=== PATIENT | female | born 1985 | race Caucasian/White ===

== ENCOUNTER 2018-12-18 12:13 | Emergency (ER) | payer OTHER, SELFPAY ==
[2018-12-18 12:15] VITALS: BP 143/90; PULSE 94; RESP 18; TEMP 36.8; O2SAT 100
--- NOTE | 2018-12-18 12:24 | ED.ABDPAIN ---
HPI - Abdominal Pain <Janel Kirkland PA-C - Last Filed: 12/18/18 20:32> General Chief Complaint: Chest Pain Stated Complaint: feels like someone sitting on R chest and arm Time Seen by Provider: 12/18/18 12:23 Source: patient Mode of arrival: ambulatory Limitations: no limitations History of Present Illness HPI narrative: This 33-year-old female comes to ED secondary to 1 week history of pressure and tingling sensation across her upper abdomen along her lower ribs. She noticed some broken capillaries in that area. She states that she had vomiting for 1 day and assume this was due to ?stomach flu? as her son had this also. She has not had any recurrent vomiting. She states that she always has nausea and this is at baseline. She states that for the last 3 days she has also had pain in her right posterior shoulder area which she describes as a pressure sensation. She states this is worse when supine. She denies any dyspnea or shortness of breath but states that it is harder to take a deep breath due to the discomfort when she is lying down. She denies any pain elsewhere in the abdomen, chest, or extremities. No new swelling. She denies any neck pain. She denies any recent upper respiratory symptoms or cough. She denies any urinary symptoms or bowel habit changes. She denies any possibility of ( has had vasectomy). She states that she has a long history of abdominal symptoms and was admitted to the hospital at one point for these, no source determined. She states this pain is different, more like nerve pain that she had in her left elbow (she had a surgery to ?separate the nerves?, still has same type of tingling on the left side). Pain is worse with putting her right arm in certain positions or with lying supine, better up and about. She denies any other exacerbating or alleviating features. She has been eating and drinking normally. Related Data Home Medications Medication Instructions Recorded Confirmed albuterol sulfate 1 puff INHALATION PRN PRN 12/18/18 12/18/18 ipratropium-albuterol 1 neb INHALATION PRN PRN 12/18/18 12/18/18 Previous Rx's Medication Instructions Recorded lidocaine [Lidoderm] 2 patch TOP DAILY #30 each 12/18/18 meloxicam [Mobic] 15 mg PO DAILY #14 tab 12/18/18 ondansetron 4 mg PO Q6-8H PRN #10 tab 12/18/18 Allergies Allergy/AdvReac Type Severity Reaction Status Date / Time bee venom protein (honey bee) Allergy Verified 12/18/18 12:24 latex Allergy Verified 12/18/18 12:24 Review of Systems <Janel Kirkland PA-C - Last Filed: 12/18/18 20:32> Review of Systems ROS Unobtainable: All systems reviewed & are unremarkable except as noted in HPI and below PFSH <Janel Kirkland PA-C - Last Filed: 12/18/18 20:32> Medical History (Updated 12/18/18 @ 14:50 by aJnel Kirkland PA-C) Asthma with allergic rhinitis (Chronic) Surgical History (Updated 12/18/18 @ 13:14 by Janel Kirkland PA-C) History of elbow surgery (Resolved) S/P T&A (status post tonsillectomy and adenoidectomy) (Resolved) Social History Smoking Status: Never smoker Social History Smoking Status: Never smoker Exam <Janel Kirkland PA-C - Last Filed: 12/18/18 20:32> Narrative Exam Narrative: GENERAL APPEARANCE: Patient sitting comfortably, in no distress. HEENT: PERRL, EOMI, no scleral icterus, conjunctivae pink, normal oropharynx NECK: Supple LUNGS: Clear to auscultation bilaterally. HEART: Rate and rhythm regular, normal S1 and S2, no S3 or S4. ABDOMEN: Soft, nontender, nondistended, bowel sounds present x 4 quadrants, no masses palpable, no hepatosplenomegaly, no CVAT. Able to reproduce some discomfort with trunk and upper extremity position change EXTREMITIES: No edema, no calf tenderness DERMATOLOGIC: No jaundice or exanthem NEUROLOGIC: Alert and oriented with normal speech and coordination Initial Vital Signs Initial Vital Signs: Vital Signs Temperature 98.2 F 12/18/18 12:15 Pulse Rate 94 H 12/18/18 12:15 Respiratory Rate 18 12/18/18 12:15 Blood Pressure 143/90 H 12/18/18 12:15 Pulse Oximetry 100 12/18/18 12:15 <Allison English DO - Last Filed: 12/19/18 08:11> Initial Vital Signs Initial Vital Signs: Vital Signs Temperature 98.2 F 12/18/18 12:15 Pulse Rate 94 H 12/18/18 12:15 Respiratory Rate 18 12/18/18 12:15 Blood Pressure 143/90 H 12/18/18 12:15 Pulse Oximetry 100 12/18/18 12:15 Course <Janel Kirkland PA-C - Last Filed: 12/18/18 20:32> Additional Information: Patient describes a long history of neuropathic pain in various locations as well as abdominal pain for which no specific diagnosis has been found. This location is somewhat different but similar in quality to previous pain. No evidence of acute surgical issue or need for admission on workup, states that she came in at the urging of a family member today, otherwise would not have. She is going on a trip but does have visit scheduled with new PCP when she returns. Given prescription for NSAID, Zofran, which was helpful for her chronic nausea, lidocaine patches. She agreed to return to closest ED if she has any acutely worsening symptoms or new symptoms such as fever or protracted vomiting. Orders Ordered: Discontinued Medications Ketorolac Tromethamine (Toradol) 30 mg IV NOW ONE Stop: 12/18/18 13:10 Last Admin: 12/18/18 13:59 Dose: 30 mg Ondansetron HCl (Zofran) 4 mg IV NOW ONE Stop: 12/18/18 13:10 Last Admin: 12/18/18 13:59 Dose: 4 mg Vital Signs - 8 hr 12/18/18 13:30 12/18/18 14:30 12/18/18 15:06 Pulse Rate 80 82 88 Respiratory Rate 19 16 17 Blood Pressure 110/81 Blood Pressure [Left Arm] 111/75 108/78 Pulse Oximetry 98 97 100 <Allison English DO - Last Filed: 12/19/18 08:11> Orders Ordered: Discontinued Medications Ketorolac Tromethamine (Toradol) 30 mg IV NOW ONE Stop: 12/18/18 13:10 Last Admin: 12/18/18 13:59 Dose: 30 mg Ondansetron HCl (Zofran) 4 mg IV NOW ONE Stop: 12/18/18 13:10 Last Admin: 12/18/18 13:59 Dose: 4 mg Vital Signs - 8 hr 12/18/18 13:30 12/18/18 14:30 12/18/18 15:06 Pulse Rate 80 82 88 Respiratory Rate 19 16 17 Blood Pressure 110/81 Blood Pressure [Left Arm] 111/75 108/78 Pulse Oximetry 98 97 100 MDM - Abdominal Pain <Janel Kirkland PA-C - Last Filed: 12/18/18 20:32> Lab Data Attestation: I reviewed the patient's lab results. Result diagrams: 12/18/18 12:30 12/18/18 12:30 Lab Results 12/18/18 12/18/18 12/18/18 Range/Units 12:30 12:30 12:30 WBC 4.5 (4.5-11.0) X10^3/uL RBC 4.81 (4.0-5.2) X10^6/uL Hgb 15.0 (12.0-16.0) g/dL Hct 44.9 (36-46) % MCV 93.4 (80-100) fL MCH 31.1 (26-34) PG MCHC 33.3 (30-36) % RDW 13.4 (11.6-14.8) % Plt Count 207 (150-400) X10^3/uL Neut % (Auto) 53.6 (50-75) % Lymph % (Auto) 29.5 (25-40) % Stone % (Auto) 12.0 (3-14) % Eos % (Auto) 3.8 (2-4) % Baso % (Auto) 1.1 (0-2) % Neut # (Auto) 2400 (0292-2004) /uL Lymph # (Auto) 1300 (5941-9194) /uL Stone # (Auto) 500 (0-900) /uL Eos # (Auto) 200 (0-450) /uL Baso # (Auto) 0 (0-100) /uL D-Dimer < 200 (<230) ng/mL Sodium 141 (137-145) mmol/L Potassium 3.9 (3.4-5.1) mmol/L Chloride 106 (98-107) mmol/L Carbon Dioxide 25 (22-32) mmol/L BUN 11 (7-17) mg/dL Creatinine 0.70 (0.52-1.04) mg/dL Estimated GFR > 60.0 (>60) mL/min BUN/Creatinine Ratio 15.7 (6-22) Glucose 90 (70-100) mg/dL Calcium 9.3 (8.4-10.2) mg/dL Total Bilirubin 1.3 (0.2-1.3) mg/dL AST 17 (14-36) IU/L ALT 7 L (9-52) IU/L Alkaline Phosphatase 50 (38-126) U/L Total Creatine Kinase 38 (30-135) U/L CK-MB (CK-2) TNP CK-MB (CK-2) Rel Index TNP Troponin I < 0.012 (0.01-0.034) ng/mL Total Protein 7.9 (6.3-8.2) g/dL Albumin 4.7 (3.5-5.0) g/dL Globulin 3.2 (1.7-4.1) g/dL Albumin/Globulin Ratio 1.5 (1.0-2.8) Lipase 87 (23-300) U/L Urine RBC (0-5/HPF) Urine WBC (0-5/HPF) Urine Bacteria (None) Ur Culture Indicated? 12/18/18 Range/Units 14:15 WBC (4.5-11.0) X10^3/uL RBC (4.0-5.2) X10^6/uL Hgb (12.0-16.0) g/dL Hct (36-46) % MCV (80-100) fL MCH (26-34) PG MCHC (30-36) % RDW (11.6-14.8) % Plt Count (150-400) X10^3/uL Neut % (Auto) (50-75) % Lymph % (Auto) (25-40) % Stone % (Auto) (3-14) % Eos % (Auto) (2-4) % Baso % (Auto) (0-2) % Neut # (Auto) (4565-1626) /uL Lymph # (Auto) (5140-0821) /uL Stone # (Auto) (0-900) /uL Eos # (Auto) (0-450) /uL Baso # (Auto) (0-100) /uL D-Dimer (<230) ng/mL Sodium (137-145) mmol/L Potassium (3.4-5.1) mmol/L Chloride (98-107) mmol/L Carbon Dioxide (22-32) mmol/L BUN (7-17) mg/dL Creatinine (0.52-1.04) mg/dL Estimated GFR (>60) mL/min BUN/Creatinine Ratio (6-22) Glucose (70-100) mg/dL Calcium (8.4-10.2) mg/dL Total Bilirubin (0.2-1.3) mg/dL AST (14-36) IU/L ALT (9-52) IU/L Alkaline Phosphatase (38-126) U/L Total Creatine Kinase (30-135) U/L CK-MB (CK-2) CK-MB (CK-2) Rel Index Troponin I (0.01-0.034) ng/mL Total Protein (6.3-8.2) g/dL Albumin (3.5-5.0) g/dL Globulin (1.7-4.1) g/dL Albumin/Globulin Ratio (1.0-2.8) Lipase (23-300) U/L Urine RBC None seen (0-5/HPF) Urine WBC 5-10/hpf H (0-5/HPF) Urine Bacteria None seen (None) Ur Culture Indicated? Specimen cultured Point of care testing: Point of Care Testing Test Results Negative Urine Dip Bedside Urine Glucose Negative Bedside Urine Bilirubin - Negative Bedside Urine Ketone - Negative Urine Specific [place] 1.010 Bedside Urine Occult Blood - Negative Bedside Urine pH 7.0 Bedside Urine Protein - Negative Bedside Urine Urobilinogen - Negative Bedside Urine Nitrite - Negative Bedside Urine Leukocytes ++ 125 Esterase Imaging Data US - abdomen: Radiologist's impression: 21 Janel Kirkland PA-C Find Patient Imaging Jil Coffey 33 F 1985 ACTIVITY DATE EXAM STATUS AUTHOR 12/18/18 13:[address] [address] Ultrasound Report Signed Patient: Jil Coffey MMR#: [id number] : 1985Acct:[id number] Age/Sex: 33 / FDate of Service: 12/18/18 Loc: ED Accession Number: [id number] Procedure: US abdomen limited Ordering Provider: Janel Kirkland P.A-C PROCEDURE: US ABDOMEN LIMITED INDICATIONS: RIGHT SHOULDER/EPIGASTRIC PAIN TECHNIQUE: Real-time scanning was performed of the abdominal and retroperitoneal organs, with image documentation. COMPARISON: None. FINDINGS: Liver: Liver is normal in size and homogeneous in echotexture. Gallbladder: The gallbladder wall measures 1.0 mm diameter. No stones, sludge, pericholecystic fluid, or sonographic Hand's sign. Biliary ducts: Intrahepatic bile ducts are non-dilated. Extrahepatic bile duct caliber measures 4 mm. Normal is 6-7 mm or less in diameter, or 10 mm or less post-cholecystectomy. Pancreas: Visualized portions of the pancreas are sonographically normal. IMPRESSION: No cholelithiasis or findings to suggest choledocholithiasis or acute cholecystitis. Dictated by: Patrizia Guevara M.D. on 12/18/2018 at 14:03 Approved by: Patrizia Guevara M.D. on 12/18/2018 at 14:04 ECG Data Attestation: I personally reviewed and interpreted this ECG as follows: (Normal sinus rhythm, rate 88, normal axis) <Allison English, - Last Filed: 12/19/18 08:11> Lab Data Lab Results 12/18/18 12/18/18 12/18/18 Range/Units 12:30 12:30 12:30 WBC 4.5 (4.5-11.0) X10^3/uL RBC 4.81 (4.0-5.2) X10^6/uL Hgb 15.0 (12.0-16.0) g/dL Hct 44.9 (36-46) % MCV 93.4 (80-100) fL MCH 31.1 (26-34) PG MCHC 33.3 (30-36) % RDW 13.4 (11.6-14.8) % Plt Count 207 (150-400) X10^3/uL Neut % (Auto) 53.6 (50-75) % Lymph % (Auto) 29.5 (25-40) % Stone % (Auto) 12.0 (3-14) % Eos % (Auto) 3.8 (2-4) % Baso % (Auto) 1.1 (0-2) % Neut # (Auto) 2400 (7763-8902) /uL Lymph # (Auto) 1300 (5032-1549) /uL Stone # (Auto) 500 (0-900) /uL Eos # (Auto) 200 (0-450) /uL Baso # (Auto) 0 (0-100) /uL D-Dimer < 200 (<230) ng/mL Sodium 141 (137-145) mmol/L Potassium 3.9 (3.4-5.1) mmol/L Chloride 106 (98-107) mmol/L Carbon Dioxide 25 (22-32) mmol/L BUN 11 (7-17) mg/dL Creatinine 0.70 (0.52-1.04) mg/dL Estimated GFR > 60.0 (>60) mL/min BUN/Creatinine Ratio 15.7 (6-22) Glucose 90 (70-100) mg/dL Calcium 9.3 (8.4-10.2) mg/dL Total Bilirubin 1.3 (0.2-1.3) mg/dL AST 17 (14-36) IU/L ALT 7 L (9-52) IU/L Alkaline Phosphatase 50 (38-126) U/L Total Creatine Kinase 38 (30-135) U/L CK-MB (CK-2) TNP CK-MB (CK-2) Rel Index TNP Troponin I < 0.012 (0.01-0.034) ng/mL Total Protein 7.9 (6.3-8.2) g/dL Albumin 4.7 (3.5-5.0) g/dL Globulin 3.2 (1.7-4.1) g/dL Albumin/Globulin Ratio 1.5 (1.0-2.8) Lipase 87 (23-300) U/L Urine RBC (0-5/HPF) Urine WBC (0-5/HPF) Urine Bacteria (None) Ur Culture Indicated? 12/18/18 Range/Units 14:15 WBC (4.5-11.0) X10^3/uL RBC (4.0-5.2) X10^6/uL Hgb (12.0-16.0) g/dL Hct (36-46) % MCV (80-100) fL MCH (26-34) PG MCHC (30-36) % RDW (11.6-14.8) % Plt Count (150-400) X10^3/uL Neut % (Auto) (50-75) % Lymph % (Auto) (25-40) % Stone % (Auto) (3-14) % Eos % (Auto) (2-4) % Baso % (Auto) (0-2) % Neut # (Auto) (7897-5718) /uL Lymph # (Auto) (7006-7375) /uL Stone # (Auto) (0-900) /uL Eos # (Auto) (0-450) /uL Baso # (Auto) (0-100) /uL D-Dimer (<230) ng/mL Sodium (137-145) mmol/L Potassium (3.4-5.1) mmol/L Chloride (98-107) mmol/L Carbon Dioxide (22-32) mmol/L BUN (7-17) mg/dL Creatinine (0.52-1.04) mg/dL Estimated GFR (>60) mL/min BUN/Creatinine Ratio (6-22) Glucose (70-100) mg/dL Calcium (8.4-10.2) mg/dL Total Bilirubin (0.2-1.3) mg/dL AST (14-36) IU/L ALT (9-52) IU/L Alkaline Phosphatase (38-126) U/L Total Creatine Kinase (30-135) U/L CK-MB (CK-2) CK-MB (CK-2) Rel Index Troponin I (0.01-0.034) ng/mL Total Protein (6.3-8.2) g/dL Albumin (3.5-5.0) g/dL Globulin (1.7-4.1) g/dL Albumin/Globulin Ratio (1.0-2.8) Lipase (23-300) U/L Urine RBC None seen (0-5/HPF) Urine WBC 5-10/hpf H (0-5/HPF) Urine Bacteria None seen (None) Ur Culture Indicated? Specimen cultured Point of care testing: Point of Care Testing Test Results Negative Urine Dip Bedside Urine Glucose Negative Bedside Urine Bilirubin - Negative Bedside Urine Ketone - Negative Urine Specific [place] 1.010 Bedside Urine Occult Blood - Negative Bedside Urine pH 7.0 Bedside Urine Protein - Negative Bedside Urine Urobilinogen - Negative Bedside Urine Nitrite - Negative Bedside Urine Leukocytes ++ 125 Esterase Discharge Plan Departure Patient Disposition: Home Clinical Impression: Neuropathic pain of chest, Neuropathic pain of right shoulder Discharge Date/Time: 12/18/18 15:07 Interventions: ED Discharge Assessment Last Done: 12/18/18 15:06 Instructions: DI for Abdominal Pain-Adult, DI for Chest Pain Activity Restrictions/Additional Instructions: I agree with you that this pain sounds similar to the nerve pain that you have had in the past, and since you have had joint pain off and on, this needs further testing with your new PCP. There is no indication of acute surgical problem today. I have prescribed some Zofran for you for nausea since that seemed to help you today. I have also prescribed a once daily anti-inflammatory for you to try along with pain patches (sent to [facility]). None of this should make you sleepy so you can try it while you are traveling. As we talked about, please return to the ED if you have any acutely worsening symptoms or new pain, fever, vomiting, etc. Otherwise, please follow-up with your PCP for re-evaluation and further testing. Prescriptions: New meloxicam [Mobic] 15 mg tablet 15 mg PO DAILY Qty: 14 RF: 0 lidocaine [Lidoderm] 5 % adhesive patch,medicated 2 patch TOP DAILY Qty: 30 RF: 0 ondansetron 4 mg tablet,disintegrating 4 mg PO Q6-8H PRN (Reason: nausea and vomiting) Qty: 10 RF: 0 No Action ipratropium-albuterol 0.5 mg-3 mg(2.5 mg base)/3 mL solution for nebulization 1 neb inhalation PRN PRN (Reason: Shortness Of Breath) RF: 0 albuterol sulfate 90 mcg/actuation Hfa Aerosol Inhaler 1 puff INHALATION PRN PRN (Reason: Shortness Of Breath) RF: 0 Referrals: Imani Brown DO [Physician] - <Allison English DO - Last Filed: 12/19/18 08:11> Cosign ED Attending Mohit Attestation: I was immediately available in the department for consultation. Documentation has been reviewed. I agree with assessment and plan.
--- NOTE | 2018-12-18 12:28 | ED_ITS ---
HPI - Abdominal Pain <Janel Kirkland PA-C - Last Filed: 12/18/18 20:32> General Chief Complaint: Chest Pain Stated Complaint: feels like someone sitting on R chest and arm Time Seen by Provider: 12/18/18 12:23 Source: patient Mode of arrival: ambulatory Limitations: no limitations History of Present Illness HPI narrative: This 33-year-old female comes to ED secondary to 1 week history of pressure and tingling sensation across her upper abdomen along her lower ribs. She noticed some broken capillaries in that area. She states that she had vomiting for 1 day and assume this was due to ?stomach flu? as her son had this also. She has not had any recurrent vomiting. She states that she always has nausea and this is at baseline. She states that for the last 3 days she has also had pain in her right posterior shoulder area which she describes as a pressure sensation. She states this is worse when supine. She denies any dyspnea or shortness of breath but states that it is harder to take a deep breath due to the discomfort when she is lying down. She denies any pain elsewhere in the abdomen, chest, or extremities. No new swelling. She denies any neck pain. She denies any recent upper respiratory symptoms or cough. She denies any urinary symptoms or bowel habit changes. She denies any possibility of ( has had vasectomy). She states that she has a long history of abdominal symptoms and was admitted to the hospital at one point for these, no source determined. She states this pain is different, more like nerve pain that she had in her left elbow (she had a surgery to ?separate the nerves?, still has same type of tingling on the left side). Pain is worse with putting her right arm in certain positions or with lying supine, better up and about. She denies any other exacerbating or alleviating features. She has been eating and drinking normally. Related Data Home Medications Medication Instructions Recorded Confirmed albuterol sulfate 1 puff INHALATION PRN PRN 12/18/18 12/18/18 ipratropium-albuterol 1 neb INHALATION PRN PRN 12/18/18 12/18/18 Previous Rx's Medication Instructions Recorded lidocaine [Lidoderm] 2 patch TOP DAILY #30 each 12/18/18 meloxicam [Mobic] 15 mg PO DAILY #14 tab 12/18/18 ondansetron 4 mg PO Q6-8H PRN #10 tab 12/18/18 Allergies Allergy/AdvReac Type Severity Reaction Status Date / Time bee venom protein (honey bee) Allergy Verified 12/18/18 12:24 latex Allergy Verified 12/18/18 12:24 Review of Systems <Janel Kirkland PA-C - Last Filed: 12/18/18 20:32> Review of Systems ROS Unobtainable: All systems reviewed & are unremarkable except as noted in HPI and below PFSH <Janel Kirkland PA-C - Last Filed: 12/18/18 20:32> Medical History (Updated 12/18/18 @ 14:50 by Janel Kirkland PA-C) Asthma with allergic rhinitis (Chronic) Surgical History (Updated 12/18/18 @ 13:14 by Janel Kirkland PA-C) History of elbow surgery (Resolved) S/P T&A (status post tonsillectomy and adenoidectomy) (Resolved) Social History Smoking Status: Never smoker Social History Smoking Status: Never smoker Exam <Janel Kirkland PA-C - Last Filed: 12/18/18 20:32> Narrative Exam Narrative: GENERAL APPEARANCE: Patient sitting comfortably, in no distress. HEENT: PERRL, EOMI, no scleral icterus, conjunctivae pink, normal oropharynx NECK: Supple LUNGS: Clear to auscultation bilaterally. HEART: Rate and rhythm regular, normal S1 and S2, no S3 or S4. ABDOMEN: Soft, nontender, nondistended, bowel sounds present x 4 quadrants, no masses palpable, no hepatosplenomegaly, no CVAT. Able to reproduce some discomfort with trunk and upper extremity position change EXTREMITIES: No edema, no calf tenderness DERMATOLOGIC: No jaundice or exanthem NEUROLOGIC: Alert and oriented with normal speech and coordination Initial Vital Signs Initial Vital Signs: Vital Signs Temperature 98.2 F 12/18/18 12:15 Pulse Rate 94 H 12/18/18 12:15 Respiratory Rate 18 12/18/18 12:15 Blood Pressure 143/90 H 12/18/18 12:15 Pulse Oximetry 100 12/18/18 12:15 <Allison English DO - Last Filed: 12/19/18 08:11> Initial Vital Signs Initial Vital Signs: Vital Signs Temperature 98.2 F 12/18/18 12:15 Pulse Rate 94 H 12/18/18 12:15 Respiratory Rate 18 12/18/18 12:15 Blood Pressure 143/90 H 12/18/18 12:15 Pulse Oximetry 100 12/18/18 12:15 Course <Janel Kirkland PA-C - Last Filed: 12/18/18 20:32> Additional Information: Patient describes a long history of neuropathic pain in various locations as well as abdominal pain for which no specific diagnosis has been found. This location is somewhat different but similar in quality to previous pain. No evidence of acute surgical issue or need for admission on workup, states that she came in at the urging of a family member today, otherwise would not have. She is going on a trip but does have visit scheduled with new PCP when she returns. Given prescription for NSAID, Zofran, which was helpful for her chronic nausea, lidocaine patches. She agreed to return to closest ED if she has any acutely worsening symptoms or new symptoms such as fever or protracted vomiting. Orders Ordered: Discontinued Medications Ketorolac Tromethamine (Toradol) 30 mg IV NOW ONE Stop: 12/18/18 13:10 Last Admin: 12/18/18 13:59 Dose: 30 mg Ondansetron HCl (Zofran) 4 mg IV NOW ONE Stop: 12/18/18 13:10 Last Admin: 12/18/18 13:59 Dose: 4 mg Vital Signs - 8 hr 12/18/18 13:30 12/18/18 14:30 12/18/18 15:06 Pulse Rate 80 82 88 Respiratory Rate 19 16 17 Blood Pressure 110/81 Blood Pressure [Left Arm] 111/75 108/78 Pulse Oximetry 98 97 100 <Allison English DO - Last Filed: 12/19/18 08:11> Orders Ordered: Discontinued Medications Ketorolac Tromethamine (Toradol) 30 mg IV NOW ONE Stop: 12/18/18 13:10 Last Admin: 12/18/18 13:59 Dose: 30 mg Ondansetron HCl (Zofran) 4 mg IV NOW ONE Stop: 12/18/18 13:10 Last Admin: 12/18/18 13:59 Dose: 4 mg Vital Signs - 8 hr 12/18/18 13:30 12/18/18 14:30 12/18/18 15:06 Pulse Rate 80 82 88 Respiratory Rate 19 16 17 Blood Pressure 110/81 Blood Pressure [Left Arm] 111/75 108/78 Pulse Oximetry 98 97 100 MDM - Abdominal Pain <Janel Kirkland PA-C - Last Filed: 12/18/18 20:32> Lab Data Attestation: I reviewed the patient's lab results. Result diagrams: 12/18/18 12:30 12/18/18 12:30 Lab Results 12/18/18 12/18/18 12/18/18 Range/Units 12:30 12:30 12:30 WBC 4.5 (4.5-11.0) X10^3/uL RBC 4.81 (4.0-5.2) X10^6/uL Hgb 15.0 (12.0-16.0) g/dL Hct 44.9 (36-46) % MCV 93.4 (80-100) fL MCH 31.1 (26-34) PG MCHC 33.3 (30-36) % RDW 13.4 (11.6-14.8) % Plt Count 207 (150-400) X10^3/uL Neut % (Auto) 53.6 (50-75) % Lymph % (Auto) 29.5 (25-40) % [place] % (Auto) 12.0 (3-14) % Eos % (Auto) 3.8 (2-4) % Baso % (Auto) 1.1 (0-2) % Neut # (Auto) 2400 (1612-1081) /uL Lymph # (Auto) 1300 (9733-0814) /uL [place] # (Auto) 500 (0-900) /uL Eos # (Auto) 200 (0-450) /uL Baso # (Auto) 0 (0-100) /uL D-Dimer < 200 (<230) ng/mL Sodium 141 (137-145) mmol/L Potassium 3.9 (3.4-5.1) mmol/L Chloride 106 (98-107) mmol/L Carbon Dioxide 25 (22-32) mmol/L BUN 11 (7-17) mg/dL Creatinine 0.70 (0.52-1.04) mg/dL Estimated GFR > 60.0 (>60) mL/min BUN/Creatinine Ratio 15.7 (6-22) Glucose 90 (70-100) mg/dL Calcium 9.3 (8.4-10.2) mg/dL Total Bilirubin 1.3 (0.2-1.3) mg/dL AST 17 (14-36) IU/L ALT 7 L (9-52) IU/L Alkaline Phosphatase 50 (38-126) U/L Total Creatine Kinase 38 (30-135) U/L CK-MB (CK-2) TNP CK-MB (CK-2) Rel Index TNP Troponin I < 0.012 (0.01-0.034) ng/mL Total Protein 7.9 (6.3-8.2) g/dL Albumin 4.7 (3.5-5.0) g/dL Globulin 3.2 (1.7-4.1) g/dL Albumin/Globulin Ratio 1.5 (1.0-2.8) Lipase 87 (23-300) U/L Urine RBC (0-5/HPF) Urine WBC (0-5/HPF) Urine Bacteria (None) Ur Culture Indicated? 12/18/18 Range/Units 14:15 WBC (4.5-11.0) X10^3/uL RBC (4.0-5.2) X10^6/uL Hgb (12.0-16.0) g/dL Hct (36-46) % MCV (80-100) fL MCH (26-34) PG MCHC (30-36) % RDW (11.6-14.8) % Plt Count (150-400) X10^3/uL Neut % (Auto) (50-75) % Lymph % (Auto) (25-40) % [place] % (Auto) (3-14) % Eos % (Auto) (2-4) % Baso % (Auto) (0-2) % Neut # (Auto) (8580-1828) /uL Lymph # (Auto) (7891-0682) /uL [place] # (Auto) (0-900) /uL Eos # (Auto) (0-450) /uL Baso # (Auto) (0-100) /uL D-Dimer (<230) ng/mL Sodium (137-145) mmol/L Potassium (3.4-5.1) mmol/L Chloride (98-107) mmol/L Carbon Dioxide (22-32) mmol/L BUN (7-17) mg/dL Creatinine (0.52-1.04) mg/dL Estimated GFR (>60) mL/min BUN/Creatinine Ratio (6-22) Glucose (70-100) mg/dL Calcium (8.4-10.2) mg/dL Total Bilirubin (0.2-1.3) mg/dL AST (14-36) IU/L ALT (9-52) IU/L Alkaline Phosphatase (38-126) U/L Total Creatine Kinase (30-135) U/L CK-MB (CK-2) CK-MB (CK-2) Rel Index Troponin I (0.01-0.034) ng/mL Total Protein (6.3-8.2) g/dL Albumin (3.5-5.0) g/dL Globulin (1.7-4.1) g/dL Albumin/Globulin Ratio (1.0-2.8) Lipase (23-300) U/L Urine RBC None seen (0-5/HPF) Urine WBC 5-10/hpf H (0-5/HPF) Urine Bacteria None seen (None) Ur Culture Indicated? Specimen cultured Point of care testing: Point of Care Testing Test Results Negative Urine Dip Bedside Urine Glucose Negative Bedside Urine Bilirubin - Negative Bedside Urine Ketone - Negative Urine Specific [place] 1.010 Bedside Urine Occult Blood - Negative Bedside Urine pH 7.0 Bedside Urine Protein - Negative Bedside Urine Urobilinogen - Negative Bedside Urine Nitrite - Negative Bedside Urine Leukocytes ++ 125 Esterase Imaging Data US - abdomen: Radiologist's impression: 21 Janel Kirkland PA-C Find Patient Imaging Jil Coffey 33 F 1985 ACTIVITY DATE EXAM STATUS AUTHOR 12/18/18 13:[address] [id number] Ultrasound Report Signed Patient: Jil Coffey MMR#: [id number] : 1985Acct:[id number] Age/Sex: 33 / FDate of Service: 12/18/18 Loc: ED Accession Number: [id number] Procedure: US abdomen limited Ordering Provider: Janel Kirkland P.A-C PROCEDURE: US ABDOMEN LIMITED INDICATIONS: RIGHT SHOULDER/EPIGASTRIC PAIN TECHNIQUE: Real-time scanning was performed of the abdominal and retroperitoneal organs, with image documentation. COMPARISON: None. FINDINGS: Liver: Liver is normal in size and homogeneous in echotexture. Gallbladder: The gallbladder wall measures 1.0 mm diameter. No stones, sludge, pericholecystic fluid, or sonographic Hand's sign. Biliary ducts: Intrahepatic bile ducts are non-dilated. Extrahepatic bile duct caliber measures 4 mm. Normal is 6-7 mm or less in diameter, or 10 mm or less post-cholecystectomy. Pancreas: Visualized portions of the pancreas are sonographically normal. IMPRESSION: No cholelithiasis or findings to suggest choledocholithiasis or acute cholecystitis. Dictated by: Patrizia Guevara M.D. on 12/18/2018 at 14:03 Approved by: Patrizia Guevara M.D. on 12/18/2018 at 14:04 ECG Data Attestation: I personally reviewed and interpreted this ECG as follows: (Normal sinus rhythm, rate 88, normal axis) <Allison English, - Last Filed: 12/19/18 08:11> Lab Data Lab Results 12/18/18 12/18/18 12/18/18 Range/Units 12:30 12:30 12:30 WBC 4.5 (4.5-11.0) X10^3/uL RBC 4.81 (4.0-5.2) X10^6/uL Hgb 15.0 (12.0-16.0) g/dL Hct 44.9 (36-46) % MCV 93.4 (80-100) fL MCH 31.1 (26-34) PG MCHC 33.3 (30-36) % RDW 13.4 (11.6-14.8) % Plt Count 207 (150-400) X10^3/uL Neut % (Auto) 53.6 (50-75) % Lymph % (Auto) 29.5 (25-40) % [place] % (Auto) 12.0 (3-14) % Eos % (Auto) 3.8 (2-4) % Baso % (Auto) 1.1 (0-2) % Neut # (Auto) 2400 (0474-9827) /uL Lymph # (Auto) 1300 (2751-1554) /uL [place] # (Auto) 500 (0-900) /uL Eos # (Auto) 200 (0-450) /uL Baso # (Auto) 0 (0-100) /uL D-Dimer < 200 (<230) ng/mL Sodium 141 (137-145) mmol/L Potassium 3.9 (3.4-5.1) mmol/L Chloride 106 (98-107) mmol/L Carbon Dioxide 25 (22-32) mmol/L BUN 11 (7-17) mg/dL Creatinine 0.70 (0.52-1.04) mg/dL Estimated GFR > 60.0 (>60) mL/min BUN/Creatinine Ratio 15.7 (6-22) Glucose 90 (70-100) mg/dL Calcium 9.3 (8.4-10.2) mg/dL Total Bilirubin 1.3 (0.2-1.3) mg/dL AST 17 (14-36) IU/L ALT 7 L (9-52) IU/L Alkaline Phosphatase 50 (38-126) U/L Total Creatine Kinase 38 (30-135) U/L CK-MB (CK-2) TNP CK-MB (CK-2) Rel Index TNP Troponin I < 0.012 (0.01-0.034) ng/mL Total Protein 7.9 (6.3-8.2) g/dL Albumin 4.7 (3.5-5.0) g/dL Globulin 3.2 (1.7-4.1) g/dL Albumin/Globulin Ratio 1.5 (1.0-2.8) Lipase 87 (23-300) U/L Urine RBC (0-5/HPF) Urine WBC (0-5/HPF) Urine Bacteria (None) Ur Culture Indicated? 12/18/18 Range/Units 14:15 WBC (4.5-11.0) X10^3/uL RBC (4.0-5.2) X10^6/uL Hgb (12.0-16.0) g/dL Hct (36-46) % MCV (80-100) fL MCH (26-34) PG MCHC (30-36) % RDW (11.6-14.8) % Plt Count (150-400) X10^3/uL Neut % (Auto) (50-75) % Lymph % (Auto) (25-40) % [place] % (Auto) (3-14) % Eos % (Auto) (2-4) % Baso % (Auto) (0-2) % Neut # (Auto) (2190-1769) /uL Lymph # (Auto) (3117-5786) /uL [place] # (Auto) (0-900) /uL Eos # (Auto) (0-450) /uL Baso # (Auto) (0-100) /uL D-Dimer (<230) ng/mL Sodium (137-145) mmol/L Potassium (3.4-5.1) mmol/L Chloride (98-107) mmol/L Carbon Dioxide (22-32) mmol/L BUN (7-17) mg/dL Creatinine (0.52-1.04) mg/dL Estimated GFR (>60) mL/min BUN/Creatinine Ratio (6-22) Glucose (70-100) mg/dL Calcium (8.4-10.2) mg/dL Total Bilirubin (0.2-1.3) mg/dL AST (14-36) IU/L ALT (9-52) IU/L Alkaline Phosphatase (38-126) U/L Total Creatine Kinase (30-135) U/L CK-MB (CK-2) CK-MB (CK-2) Rel Index Troponin I (0.01-0.034) ng/mL Total Protein (6.3-8.2) g/dL Albumin (3.5-5.0) g/dL Globulin (1.7-4.1) g/dL Albumin/Globulin Ratio (1.0-2.8) Lipase (23-300) U/L Urine RBC None seen (0-5/HPF) Urine WBC 5-10/hpf H (0-5/HPF) Urine Bacteria None seen (None) Ur Culture Indicated? Specimen cultured Point of care testing: Point of Care Testing Test Results Negative Urine Dip Bedside Urine Glucose Negative Bedside Urine Bilirubin - Negative Bedside Urine Ketone - Negative Urine Specific [place] 1.010 Bedside Urine Occult Blood - Negative Bedside Urine pH 7.0 Bedside Urine Protein - Negative Bedside Urine Urobilinogen - Negative Bedside Urine Nitrite - Negative Bedside Urine Leukocytes ++ 125 Esterase Discharge Plan Departure Patient Disposition: Home Clinical Impression: Neuropathic pain of chest, Neuropathic pain of right shoulder Discharge Date/Time: 12/18/18 15:07 Interventions: ED Discharge Assessment Last Done: 12/18/18 15:06 Instructions: DI for Abdominal Pain-Adult, DI for Chest Pain Activity Restrictions/Additional Instructions: I agree with you that this pain sounds similar to the nerve pain that you have had in the past, and since you have had joint pain off and on, this needs further testing with your new PCP. There is no indication of acute surgical problem today. I have prescribed some Zofran for you for nausea since that seemed to help you today. I have also prescribed a once daily anti-inflammatory for you to try along with pain patches (sent to [employer]). None of this should make you sleepy so you can try it while you are traveling. As we talked about, please return to the ED if you have any acutely worsening symptoms or new pain, fever, vomiting, etc. Otherwise, please follow-up with your PCP for re- evaluation and further testing. Prescriptions: New meloxicam [Mobic] 15 mg tablet 15 mg PO DAILY Qty: 14 RF: 0 lidocaine [Lidoderm] 5 % adhesive patch,medicated 2 patch TOP DAILY Qty: 30 RF: 0 ondansetron 4 mg tablet,disintegrating 4 mg PO Q6-8H PRN (Reason: nausea and vomiting) Qty: 10 RF: 0 No Action ipratropium-albuterol 0.5 mg-3 mg(2.5 mg base)/3 mL solution for nebulization 1 neb inhalation PRN PRN (Reason: Shortness Of Breath) RF: 0 albuterol sulfate 90 mcg/actuation Hfa Aerosol Inhaler 1 puff INHALATION PRN PRN (Reason: Shortness Of Breath) RF: 0 Referrals: Imani Brown DO [Physician] - <Allison English DO - Last Filed: 12/19/18 08:11> Cosign ED Attending Mohit Attestation: I was immediately available in the department for consultation. Documentation has been reviewed. I agree with asse ssment and plan.
[2018-12-18 12:41] LABS: Add Manual Diff / Slide Review NO; Basophils Absolute Auto 0 /uL (0-100); Basophils Percent Auto 1.1 % (0-2); Eosinophils Absolute Auto 200 /uL (0-450); Eosinophils Percent Auto 3.8 % (2-4); Hematocrit 44.9 % (36-46); Lymphocytes Absolute Auto 1300 /uL (1100-4500); Lymphocytes Percent Auto 29.5 % (25-40); Mean Corpuscular HGB Conc 33.3 % (30-36); Mean Corpuscular Hemoglobin 31.1 PG (26-34); Mean Corpuscular Volume 93.4 fL (80-100); Monocytes Absolute Auto 500 /uL (0-900); Neutrophils Absolute Auto 2400 /uL (1500-7000); Neutrophils Percent Auto 53.6 % (50-75); Platelet Count 207 X10^3/uL (150-400); Red Blood Cell Count 4.81 X10^6/uL (4.0-5.2); Red Cell Distribution Width 13.4 % (11.6-14.8); White Blood Cell Count 4.5 X10^3/uL (4.5-11.0)
[2018-12-18 12:54] LABS: Alanine Aminotransferase 7 IU/L (9-52); Albumin 4.7 g/dL (3.5-5.0); Albumin Globulin Ratio 1.5 (1.0-2.8); Alkaline Phosphatase 50 U/L (38-126); Aspartate Aminotransferase 17 IU/L (14-36); BUN Creatinine Ratio 15.7 (6-22); Bilirubin Total 1.3 mg/dL (0.2-1.3); Blood Urea Nitrogen 11 mg/dL (7-17); Calcium 9.3 mg/dL (8.4-10.2); Carbon Dioxide 25 mmol/L (22-32); Chloride 106 mmol/L (98-107); Creatine Kinase 38 U/L (30-135); D Dimer < 200 ng/mL (<230); Estimated Glomerular Filt Rate > 60.0 mL/min (>60); Globulin 3.2 g/dL (1.7-4.1); Glucose 90 mg/dL (70-100); HEMOLYSIS < 15 (0-50); Lipase 87 U/L (23-300); Potassium 3.9 mmol/L (3.4-5.1); Sodium 141 mmol/L (137-145); Total Protein 7.9 g/dL (6.3-8.2)
--- NOTE | 2018-12-18 13:04 | DI.US.S_ITS ---
PROCEDURE: US ABDOMEN LIMITED INDICATIONS: RIGHT SHOULDER/EPIGASTRIC PAIN TECHNIQUE: Real-time scanning was performed of the abdominal and retroperitoneal organs, with image documentation. COMPARISON: None. FINDINGS: Liver: Liver is normal in size and homogeneous in echotexture. Gallbladder: The gallbladder wall measures 1.0 mm diameter. No stones, sludge, pericholecystic fluid, or sonographic Hand's sign. Biliary ducts: Intrahepatic bile ducts are non-dilated. Extrahepatic bile duct caliber measures 4 mm. Normal is 6-7 mm or less in diameter, or 10 mm or less post-cholecystectomy. Pancreas: Visualized portions of the pancreas are sonographically normal. IMPRESSION: No cholelithiasis or findings to suggest choledocholithiasis or acute cholecystitis. Dictated by: Patrizia Guevara M.D. on 12/18/2018 at 14:03 Approved by: Patrizia Guevara M.D. on 12/18/2018 at 14:04
[2018-12-18 13:05] LABS: Troponin I < 0.012 ng/mL (0.01-0.034)
[2018-12-18 13:30] VITALS: BP 111/75; PULSE 80; RESP 19; O2SAT 98
[2018-12-18] MEDS: KETOROLAC 60 MG/2 ML VIAL 30 MG IV (13:59)
[2018-12-18] MEDS: ONDANSETRON 4 MG/2 ML INJ IV (13:59)
[2018-12-18 14:28] LABS: Bacteria Urine None Seen; RBC Urine None Seen (0-5/HPF)
[2018-12-18 14:30] VITALS: BP 108/78; PULSE 82; RESP 16; O2SAT 97
[2018-12-18 14:36] LABS: WBC Urine 5-10/HPF (0-5/HPF)
[2018-12-18 14:37] LABS: Culture Indicated Urine Specimen Cultured
[2018-12-18 15:06] VITALS: BP 110/81; PULSE 88; RESP 17; O2SAT 100
== END 2018-12-18 15:07 | disposition home or self-care (01) ==
PROVIDERS: Emergency Provider Internal Medicine
DX: M79.2 Neuralgia and neuritis, unspecified (principal); R07.9 Chest pain, unspecified
CPT/HCPCS: 36591; 76705; 80053; 81003; 81015; 81025; 82550; 83690; 84484; 85025; 85379; 87077; 87086; 87147; 93005; 96374; 96375; 99282; 99285; J1885; J2405

== ENCOUNTER → 2019-01-14 07:30 | Outpatient (CLI) | payer OTHER, SELFPAY ==
[2019-01-14 08:46] LABS: Appearance Urine UA SL CLOUDY; Bilirubin Urine UA NEGATIVE (NEGATIVE); Color Urine UA YELLOW; Glucose Urine UA NEGATIVE (Negative); Ketones Urine UA NEGATIVE (NEGATIVE); Leukocyte Esterase Urine UA TRACE (NEGATIVE); Nitrite Urine UA NEGATIVE (Negative); Occult Blood Urine UA NEGATIVE (Negative); Protein Urine UA NEGATIVE (Negative); Specific Gravity Urine UA 1.025 (1.000-1.035); Urobilinogen Urine UA 0.2 E.U./dL (0.2); pH Urine UA 5.5 (4.5-8.0)
[2019-01-14 08:55] LABS: Hemoglobin 14.1 g/dL (12.0-16.0); Mean Corpuscular HGB Conc 33.7 % (30-36); Mean Corpuscular Hemoglobin 31.7 PG (26-34); Mean Corpuscular Volume 93.9 fL (80-100); Platelet Count 200 X10^3/uL (150-400); Red Blood Cell Count 4.47 X10^6/uL (4.0-5.2); Red Cell Distribution Width 12.9 % (11.6-14.8); White Blood Cell Count 3.9 X10^3/uL (4.5-11.0)
[2019-01-14 09:09] LABS: Alanine Aminotransferase 12 IU/L (9-52); Albumin 4.3 g/dL (3.5-5.0); Albumin Globulin Ratio 1.5 (1.0-2.8); Alkaline Phosphatase 49 U/L (38-126); Aspartate Aminotransferase 16 IU/L (14-36); BUN Creatinine Ratio 21.7 (6-22); Blood Urea Nitrogen 13 mg/dL (7-17); Calcium 8.9 mg/dL (8.4-10.2); Carbon Dioxide 28 mmol/L (22-32); Chloride 103 mmol/L (98-107); Cholesterol 151 mg/dL (140-199); Estimated Glomerular Filt Rate > 60.0 mL/min (>60); Globulin 2.8 g/dL (1.7-4.1); Glucose 89 mg/dL (70-100); HDL Cholesterol 66 mg/dL (40-60); HEMOLYSIS < 15 (0-50); LDL Cholesterol Calculated 76 mg/dL (<100); Potassium 4.2 mmol/L (3.4-5.1); Sodium 140 mmol/L (137-145); Total Protein 7.1 g/dL (6.3-8.2); Triglycerides 43 mg/dL (35-150); Uric Acid 3.7 mg/dL (2.5-6.2)
[2019-01-14 09:25] LABS: Rheumatoid Factor < 8.6 IU/mL (<12.0)
[2019-01-14 09:33] LABS: Amorphous Sediment Urine 1+; Bacteria Urine Few (2-10); RBC Urine 0-1/HPF (0-5/HPF); Squamous Epithelial Cell Urine 5-10 /HPF (0-5/HPF); WBC Urine 1-5/HPF (0-5/HPF)
[2019-01-14 09:34] LABS: Culture Indicated Urine Cult Not Indicated
[2019-01-14 10:08] LABS: Neutrophils Absolute Manual 2145 /uL (3000-5900); Total Cells Counted 100
[2019-01-14 10:10] LABS: RBC Morphology Normal Morphology
[2019-01-14 10:16] LABS: Erythrocyte Sedimentation Rate 3 MM/HR (0-20)
[2019-01-18 09:19] LABS: (tTG) Ab, IgA < 1 U/mL
== END ==
PROVIDERS: Visit Provider Family Medicine
DX: K58.9 Irritable bowel syndrome, unspecified (principal); K90.41 Non-celiac gluten sensitivity; M25.50 Pain in unspecified joint; M35.3 Polymyalgia rheumatica; R15.9 Full incontinence of feces
CPT/HCPCS: 36415; 80053; 80061; 81003; 81015; 82784; 83516; 84443; 84550; 85025; 85651; 86255; 86430

== ENCOUNTER → 2019-10-01 10:08 | Outpatient (CLI) | payer OTHER, SELFPAY ==
[2019-10-01 12:05] LABS: Add Manual Diff / Slide Review NO; Basophils Absolute Auto 100 /uL (0-100); Basophils Percent Auto 0.9 % (0-2); Eosinophils Absolute Auto 200 /uL (0-450); Eosinophils Percent Auto 3.4 % (2-4); Hematocrit 40.4 % (36-46); Hemoglobin 13.6 g/dL (12.0-16.0); Lymphocytes Absolute Auto 1700 /uL (1100-4500); Lymphocytes Percent Auto 27.1 % (25-40); Mean Corpuscular HGB Conc 33.7 % (30-36); Mean Corpuscular Hemoglobin 31.9 PG (26-34); Mean Corpuscular Volume 94.9 fL (80-100); Monocytes Absolute Auto 500 /uL (0-900); Monocytes Percent Auto 8.2 % (3-14); Neutrophils Absolute Auto 3800 /uL (1500-7000); Neutrophils Percent Auto 60.4 % (50-75); Platelet Count 220 X10^3/uL (150-400); Red Blood Cell Count 4.26 X10^6/uL (4.0-5.2); White Blood Cell Count 6.3 X10^3/uL (4.5-11.0)
[2019-10-01 12:32] LABS: C-Reactive Protein Quant < 0.5 mg/dL (<1.0)
[2019-10-01 12:44] LABS: Free T3, Triiodothyronine Free 2.71 pg/mL (2.77-5.27); Free T4, Direct Thyroxine 0.83 ng/dL (0.78-2.19)
[2019-10-01 12:58] LABS: Thyroid Stimulating Hormone 1.64 uIU/mL (0.47-4.68)
[2019-10-01 12:59] LABS: Erythrocyte Sedimentation Rate 2 MM/HR (0-20)
== END ==
PROVIDERS: PCP Nurse Practitioner; Referring Provider Nurse Practitioner; Visit Provider Nurse Practitioner
DX: F32.9 Major depressive disorder, single episode, unspecified (principal); F41.9 Anxiety disorder, unspecified; I89.0 Lymphedema, not elsewhere classified; M79.7 Fibromyalgia; R59.0 Localized enlarged lymph nodes; R00.2 Palpitations
CPT/HCPCS: 36415; 84439; 84443; 84481; 85025; 85651; 86140

== ENCOUNTER → 2019-10-06 11:05 | Outpatient (CLI) | payer OTHER, SELFPAY ==
--- NOTE | 2019-10-06 11:07 | DI.US.S_ITS ---
PROCEDURE: US SOFT TISSUE HEAD AND NECK COMPARISON: None. INDICATIONS: NECK MASS FINDINGS: IMPRESSION: Dictated by: Harsha Figueroa M.D. on 10/06/2019 at 12:31 Approved by: Harsha Figueroa M.D. on 10/06/2019 at 12:31
--- NOTE | 2019-10-06 11:07 | DI.US.S_ITS ---
LIMITED ULTRASOUND OF LEFT BREAST AND AXILLA: 10/06/2019 CLINICAL: Lt breast pain, axillary lymph node swelling. Comparison is made to exam dated: 10/06/2019 [facility]. Real-time ultrasound of the left breast upper outer quadrant and axilla regions was performed. Deleon scale images of the real-time examination were reviewed. No significant abnormalities were seen sonographically in the left breast or the left axilla. Specifically, no finding to correspond to the patient's pain or palpable abnormality. IMPRESSION: PROBABLY BENIGN Microcalcifications in the upper outer left breast are probably benign, but require follow up given lack of prior imaging. A follow-up left mammogram in 6 months is recommended to demonstrate stability. Findings and recommendations were conveyed to the patient at time of exam. This exam was interpreted at Station ID: [id number]. Electronically Signed By: Mariann escobar/:10/06/2019 14:32:39 letter sent: Followup Recommended Ultrasound BI-RADS: 3 Probably benign
--- NOTE | 2019-10-06 11:07 | DI.MG.S_ITS ---
BILATERAL DIGITAL DIAGNOSTIC MAMMOGRAM 3D/2D: 10/06/2019 CLINICAL: Baseline.Left breast pain and Bilateral axilllay lymph node swelling. No prior exams were available for comparison. The tissue of both breasts is heterogeneously dense. This may lower the sensitivity of mammography. There is a 5 mm irregular high density asymmetry in the right breast at 12 o'clock anterior depth. This is not seen in additional views. There are grouped fine calcifications in the left breast at 1 o'clock middle depth. No other abnormalities to correspond to left breast pain, or bilateral axillary lumps. No other significant masses or calcifications are seen in either breast. IMPRESSION: INCOMPLETE: NEEDS ADDITIONAL IMAGING EVALUATION The 5 mm irregular high density asymmetry in the right breast at 12 o'clock anterior depth is indeterminate. An ultrasound is recommended. The grouped fine calcifications in the left breast at 1 o'clock middle depth are probably benign. A follow-up mammogram in 6 months is recommended. There are no abnormalities seen in either axilla to correspond with the palpable nodularities in axillae, however, ultrasound is recommended. Bilateral ultrasound was performed immediately following this exam. This exam was interpreted at Station ID: [id number]. NOTE: For mammograms, a report in lay terms will be sent to the patient. Approximately 15% of breast malignancies will not be visualized mammographically. In the management of a palpable breast mass, a negative mammogram must not discourage biopsy of a clinically suspicious lesion. Electronically Signed By: Mariann escobar/:10/06/2019 14:18:33 ACR BI-RADS Category 0: Incomplete [id number]
--- NOTE | 2019-10-06 11:07 | DI.US.S_ITS ---
LIMITED ULTRASOUND OF RIGHT BREAST: 10/06/2019 CLINICAL: Axillary lymph node swelling. Comparison is made to exam dated: 10/06/2019 [facility]. Color flow and Doppler ultrasound of the right breast 11-1 o'clock region were performed. Deleon scale images of the real-time examination were reviewed. There is an oval 6 x 5 x 4 mm mass with an indistinct margin in the right breast at 11 o'clock anterior depth. This oval mass is hypoechoic with an echogenic boundary and no posterior acoustic shadowing or enhancement. This correlates with mammography findings. Color flow imaging demonstrates that there is no vascularity present. IMPRESSION: SUSPICIOUS OF MALIGNANCY The 6 mm oval mass in the right breast has a differential diagnosis of a fibroadenoma, complicated cyst, a lymph node, or less likely, carcinoma, and therefore is suspicious of malignancy. An ultrasound guided biopsy is recommended. Findings and recommendations were discussed with the patient by Dr Tristen Bauer at time of exam. This exam was interpreted at Station ID: [id number]. Electronically Signed By: Mariann escobar/:10/06/2019 14:30:17 letter sent: Biopsy Required Ultrasound BI-RADS: 4 Suspicious for malignancy
== END ==
PROVIDERS: PCP Nurse Practitioner; Referring Provider Nurse Practitioner; Visit Provider Nurse Practitioner
DX: R92.8 Other abnormal and inconclusive findings on diagnostic imaging of breast (principal); R92.1 Mammographic calcification found on diagnostic imaging of breast; N63.11 Unspecified lump in the right breast, upper outer quadrant; N64.4 Mastodynia; R22.1 Localized swelling, mass and lump, neck; R59.0 Localized enlarged lymph nodes
CPT/HCPCS: 76536; 76642; 77066; G0279

== ENCOUNTER → 2019-10-20 12:31 | Outpatient (CLI) | payer OTHER, SELFPAY ==
--- NOTE | 2019-10-20 | DI.MG.S_ITS ---
UNILATERAL RIGHT DIGITAL DIAGNOSTIC MAMMOGRAM POST-NEEDLE BIOPSY: 10/20/2019 CLINICAL: Right breast mass. Comparison is made to exams dated: 10/06/2019 mammogram and 10/06/2019 [facility]. The tissue of right breast is heterogeneously dense. This may lower the sensitivity of mammography. There is a 0.6 cm x 0.4 cm x 0.5 cm mass in the right breast at 11 o'clock anterior depth 2 cm from the nipple. No other significant masses or calcifications are seen in the breast. Biopsy clip not visualized. IMPRESSION: POST PROCEDURE MAMMOGRAM FOR MARKER PLACEMENT Biopsy clip not visualized. Future imaging is recommended as follows: 04/06/2020 follow-up left mammogram. This exam was interpreted at Station ID: [id number]. NOTE: For mammograms, a report in lay terms will be sent to the patient. Approximately 15% of breast malignancies will not be visualized mammographically. In the management of a palpable breast mass, a negative mammogram must not discourage biopsy of a clinically suspicious lesion. Electronically Signed By: Gabriela herring/:10/29/2019 08:19:03 Entry: rabia - 10/29/2019 08:19:03 ACR BI-RADS Category Post-procedure mammogram for marker placement
--- NOTE | 2019-10-20 | PATH_ITS ---
[facility] Accession Number: [id number] . 01 Material submitted: . breast - RT BREAST . 01 Clinical history: . RIGHT BREAST MASS . 02 Diagnosis: Right Breast Mass, Needle Core Biopsies: Breast parenchyma with fibroadenomatous changes. Negative for atypical hyperplasia, in situ or invasive carcinoma. [facility] 10/21/2019 1205 Local . 02 Electronically signed: . Sigifredo Brock MD, PhD, Pathologist NPI- [id number] . 01 Gross description: . Received in one formalin-filled container, labeled with the patient's name and labeled RT breast Bx, are multiple yellow-zapata fragments of tissue and clotted blood which range in size from 0.2 x 0.2 x 0.2 cm to 1.0 x 0.3 x 0.2 cm. The specimen is filtered and entirely submitted in cassettes A1-A3. Collection date and time per container: 10-20-2019 at 1330. Total fixation time: Approximately 10 hours. ([id number]) /MILADIS 10/21/2019 0232 Local . 02 Pathologist provided ICD-10: N63.10 . 02 CPT . 906030 Performed at: 01 [facility] [address], [place], [place] [id number] MD Placido Oneil MD Phone: [phone] Performed at: [address] [facility] [address] [place], [place] [id number] MD Estella Lazo MD Phone: [phone]
--- NOTE | 2019-10-20 12:34 | DI.US.S_ITS ---
PROCEDURE: US BX BREAST PERC W VAC DEVICE COMPARISON: None. INDICATIONS: RT BREAST MASS FINDINGS: IMPRESSION: Dictated by: Arnoldo Johnson M.D. on 10/28/2019 at 9:39 Approved by: Arnoldo Johnson M.D. on 10/28/2019 at 9:40
== END ==
PROVIDERS: PCP Nurse Practitioner; Referring Provider Nurse Practitioner; Visit Provider Nurse Practitioner
DX: N63.11 Unspecified lump in the right breast, upper outer quadrant (principal); N64.89 Other specified disorders of breast
CPT/HCPCS: 19083; 77065

== ENCOUNTER → 2020-04-06 08:47 | Outpatient (CLI) | payer OTHER, SELFPAY ==
--- NOTE | 2020-04-06 08:49 | DI.MG.S_ITS ---
UNILATERAL LEFT DIGITAL DIAGNOSTIC MAMMOGRAM 3D/2D: 04/06/2020 CLINICAL: Short follow up. Comparison is made to exams dated: 10/06/2019 mammogram and 10/06/2019 [facility]. The tissue of left breast is heterogeneously dense. This may lower the sensitivity of mammography. There are grouped fine calcifications in the left breast at 1 o'clock middle depth. These are not significantly changed. No other significant masses or calcifications are seen in the breast. IMPRESSION: PROBABLY BENIGN The grouped fine calcifications in the left breast are probably benign. A follow-up mammogram in 6 months is recommended to demonstrate stability. This exam was interpreted at Station ID: [id number]. NOTE: For mammograms, a report in lay terms will be sent to the patient. Approximately 15% of breast malignancies will not be visualized mammographically. In the management of a palpable breast mass, a negative mammogram must not discourage biopsy of a clinically suspicious lesion. Electronically Signed By: Gilson campbell/neeru:04/06/2020 09:25:15 letter sent: Followup Recommended ACR BI-RADS Category 3: Probably benign [id number]
== END ==
PROVIDERS: PCP Nurse Practitioner; Referring Provider Nurse Practitioner; Visit Provider Nurse Practitioner
DX: R92.8 Other abnormal and inconclusive findings on diagnostic imaging of breast (principal); R92.1 Mammographic calcification found on diagnostic imaging of breast
CPT/HCPCS: 77065; G0279

== ENCOUNTER → 2020-05-24 09:45 | Outpatient (CLI) | payer OTHER, SELFPAY ==
[2020-05-24 11:36] LABS: Add Manual Diff / Slide Review NO; Basophils Absolute Auto 0 /uL (0-100); Basophils Percent Auto 0.7 % (0-2); Eosinophils Absolute Auto 200 /uL (0-450); Eosinophils Percent Auto 3.3 % (2-4); Hematocrit 39.4 % (36-46); Hemoglobin 13.1 g/dL (12.0-16.0); Lymphocytes Absolute Auto 1100 /uL (1100-4500); Lymphocytes Percent Auto 17.1 % (25-40); Mean Corpuscular HGB Conc 33.3 % (30-36); Mean Corpuscular Hemoglobin 31.5 PG (26-34); Mean Corpuscular Volume 94.8 fL (80-100); Monocytes Absolute Auto 500 /uL (0-900); Monocytes Percent Auto 8.4 % (3-14); Neutrophils Absolute Auto 4400 /uL (1500-7000); Neutrophils Percent Auto 70.5 % (50-75); Platelet Count 251 X10^3/uL (150-400); Red Blood Cell Count 4.16 X10^6/uL (4.0-5.2); Red Cell Distribution Width 14.5 % (11.6-14.8); White Blood Cell Count 6.2 X10^3/uL (4.5-11.0)
[2020-05-24 12:07] LABS: C-Reactive Protein Quant 0.5 mg/dL (<1.0); Rheumatoid Factor < 8.6 IU/mL (<12.0)
[2020-05-26 18:41] LABS: ANA Screen, IFA Negative (.)
== END ==
PROVIDERS: PCP Nurse Practitioner; Referring Provider Nurse Practitioner; Visit Provider Nurse Practitioner
DX: M79.7 Fibromyalgia (principal)
CPT/HCPCS: 85025; 86038; 86140; 86430

== ENCOUNTER 2020-08-17 14:13 | Emergency (ER) | payer OTHER, SELFPAY ==
[2020-08-17 14:24] VITALS: BP 148/83; PULSE 89; RESP 18; TEMP 36.6; O2SAT 100
--- NOTE | 2020-08-17 14:28 | DI.RAD.S_ITS ---
PROCEDURE: XR CHEST 1V INDICATIONS: chest pain TECHNIQUE: One view of the chest was acquired. COMPARISON: None. FINDINGS: Surgical changes and devices: None. Lungs and pleura: Lungs are clear. No pleural effusions or pneumothorax. Mediastinum: Mediastinal contours appear normal. Heart size is normal. Bones and chest wall: No suspicious bony lesions. Overlying soft tissues appear unremarkable. IMPRESSION: No acute cardiopulmonary disease. Dictated by: Dayna Beltran M.D. on 08/17/2020 at 16:18 Approved by: Dayna Beltran M.D. on 08/17/2020 at 16:18
[2020-08-17 14:59] LABS: Add Manual Diff / Slide Review NO; Basophils Absolute Auto 100 /uL (0-100); Basophils Percent Auto 0.8 % (0-2); Eosinophils Absolute Auto 300 /uL (0-450); Eosinophils Percent Auto 3.5 % (2-4); Hematocrit 41.4 % (36-46); Lymphocytes Absolute Auto 1300 /uL (1100-4500); Lymphocytes Percent Auto 18.6 % (25-40); Mean Corpuscular HGB Conc 33.7 % (30-36); Mean Corpuscular Hemoglobin 31.5 PG (26-34); Mean Corpuscular Volume 93.3 fL (80-100); Monocytes Absolute Auto 500 /uL (0-900); Monocytes Percent Auto 6.6 % (3-14); Neutrophils Absolute Auto 5100 /uL (1500-7000); Neutrophils Percent Auto 70.5 % (50-75); Platelet Count 223 X10^3/uL (150-400); Red Blood Cell Count 4.44 X10^6/uL (4.0-5.2); Red Cell Distribution Width 14.7 % (11.6-14.8); White Blood Cell Count 7.2 X10^3/uL (4.5-11.0)
[2020-08-17 15:05] LABS: INR 0.9 (0.9-1.3); Prothrombin Time 10.9 SECONDS (10.1-12.7)
[2020-08-17 15:07] LABS: PTT Partial Thromboplastin Tim 34 SECONDS (26.4-36.2)
[2020-08-17 15:09] LABS: Alanine Aminotransferase 18 IU/L (<35); Albumin 4.6 g/dL (3.5-5.0); Albumin Globulin Ratio 1.4 (1.0-2.8); Alkaline Phosphatase 84 U/L (38-126); Aspartate Aminotransferase 26 IU/L (14-36); Bilirubin Total 0.7 mg/dL (0.2-1.3); Blood Urea Nitrogen 12 mg/dL (7-17); Calcium 9.1 mg/dL (8.4-10.2); Carbon Dioxide 26 mmol/L (22-32); Chloride 102 mmol/L (98-107); Creatine Kinase 40 U/L (30-135); Estimated Glomerular Filt Rate > 60.0 mL/min (>60); Globulin 3.2 g/dL (1.7-4.1); Glucose 103 mg/dL (70-100); HEMOLYSIS < 15 (0-50); Lipase 45 U/L (23-300); Potassium 4.2 mmol/L (3.4-5.1); Sodium 135 mmol/L (137-145); Total Protein 7.8 g/dL (6.3-8.2)
[2020-08-17 15:20] LABS: Troponin I < 0.012 ng/mL (0.01-0.034)
--- NOTE | 2020-08-17 17:52 | ED.CHESTPAIN ---
HPI - Chest Pain General Chief Complaint: Chest Pain Stated Complaint: rib cage/back pain 03/27 x4 days Time Seen by Provider: 08/17/20 17:28 Source: patient Mode of arrival: Ambulatory History of Present Illness HPI narrative: Patient brought here by . Complaints 3 days of constant circumferential chest pain at the lower ribs. Reproducible with movement deep breath. This is the 9th episode in 2 years. Seen here 2 years ago for the same. No family history of blood clots in legs or lungs or any coronary disease or aortic aneurysms. No limb numbness tingling weakness no syncope. Denies . Denies any dyspnea. History of fibromyalgia. On Lyrica and meloxicam MD complaint: chest pain Related Data Home Medications Medication Instructions Recorded Confirmed epinephrine 0.3 mg/0.3 mL 0.3 mg IM ONCE 11/04/18 07/06/20 injection, auto-injector albuterol sulfate 2 puff INHALATION QID PRN 04/08/19 07/06/20 Previous Rx's Medication Instructions Recorded ipratropium 0.5 mg-albuterol 3 mg 3 ml INHALATION Q8H #90 ml 11/04/18 (2.5 mg base)/3 mL nebulization soln lidocaine [Lidoderm] 2 patch TOP DAILY #30 each 12/18/18 meclizine 25 mg tablet 25 mg PO TID PRN #20 tab 10/01/19 triamcinolone acetonide 0.5 % 1 applic TOPICAL BID #15 g 05/24/20 topical ointment amoxicillin 500 mg-potassium 1 tab PO Q12H #20 tab 07/06/20 clavulanate 125 mg tablet fluconazole 150 mg tablet 150 mg PO Q3D #2 tab 07/06/20 meloxicam 15 mg tablet 15 mg PO DAILY #90 tab 07/06/20 ondansetron 4 mg disintegrating 4 mg PO Q6-8H PRN #30 tab 07/06/20 tablet venlafaxine 75 mg capsule,extended 75 mg PO BEDTIME #60 cap 07/06/20 release 24 hr levofloxacin 500 mg tablet 500 mg PO Q24H #10 tab 07/23/20 pregabalin 25 mg capsule 25 mg PO DAILY #90 cap 07/23/20 pregabalin 75 mg capsule 75 mg PO BEDTIME #90 cap 07/23/20 Allergies Allergy/AdvReac Type Severity Reaction Status Date / Time bee venom protein (honey bee) Allergy Severe Had Verified 07/06/20 10:38 unusual reaction but not anaphylaxis cat dander Allergy Mild Verified 07/06/20 10:38 gluten Allergy Mild Verified 07/06/20 10:38 mold Allergy Mild Verified 07/06/20 10:38 latex Allergy Verified 07/06/20 10:38 Review of Systems Review of Systems Narrative: GENERAL: Denies chills, fatigue, malaise, fever, sweats. HEENT: Denies sinus pain, ear pain, sore throat RESPIRATORY: Denies dyspnea, cough CARDIOVASCULAR: Complaint chest pain, denied palpitations GASTROINTESTINAL: Denies nausea, vomiting, abdominal pain : Denies dysuria, frequency, hematuria MUSCULOSKELETAL: denies muscle or bony pain SKIN: Denies rash, skin lesions NEUROLOGIC: Denies weakness, numbness ROS Unobtainable: All systems reviewed & are unremarkable except as noted in HPI and below Patient History Medical History Acne Allergies Anemia Anorexia nervosa Anxiety Asthma with allergic rhinitis Breast pain, left Bulimia Chicken pox Chronic pain Dizziness Eating disorder in remission Erythematous papules of skin Gluten enteropathy Heavy menstrual period Irregular menstrual cycle Irritable bowel syndrome Lymphadenopathy, axillary Mass of sternum Migraines Palpitations Plantar warts Rectal prolapse Ulnar neuropathy Vision disorder Surgical History Anesthesia History of elbow surgery (~2016) History of myringotomy (~1994) S/P T&A (status post tonsillectomy and adenoidectomy) (~1990) [place] teeth removed (~2010) Family History Grandfather Cancer Grandmother Pneumonia Social History Smoking Status: Never smoker Smoking Status: Never smoker alcohol intake frequency: 0-2 drinks per day Substance Use Type: does not use Exam Narrative Exam Narrative: GENERAL: in no distress, not toxic not dyspneic HEAD: Normocephalic. EYES: Pupils equal round No scleral icterus. No injection no discharge ENT: Mucous membranes moist. NECK: Trachea midline. CARDIOVASCULAR: Regular rate and rhythm without murmurs, reproducible bilateral ribcage tenderness at the posterior ribs and anterior and lateral ribs, pain with deep breath as well RESPIRATORY: Clear to auscultation. Breath sounds equal bilaterally. No wheezes, rales, or rhonchi. GASTROINTESTINAL: Abdomen soft, non-tender EXTREMITIES: No gross deformities. BACK: No flank tenderness. NEURO: AOx4. SKIN: Warm and dry PSYCH: Not anxious, is cooperative Initial Vital Signs Initial Vital Signs: Vital Signs Temperature 97.9 F 08/17/20 14:24 Pulse Rate 89 08/17/20 14:24 Respiratory Rate 18 08/17/20 14:24 Blood Pressure 148/83 H 08/17/20 14:24 Pulse Oximetry 100 08/17/20 14:24 Scores HEART Score Heart Score history: Slightly Suspicious Heart Score EKG: Normal Heart Score Age: < 45 years old Heart Score risk factors: No known risk factors Heart Score troponin: < or = to normal limit Heart Score Total: 0 Course Course Course Narrative: No new issues during course of stay Orders Ordered: Discontinued Medications Ketorolac Tromethamine (Ketorolac 60 Mg/2 Ml Vial) 15 mg IV NOW ONE Stop: 08/17/20 17:51 Last Admin: 08/17/20 18:48 Dose: 15 mg Documented by: CHARLINE Reevaluation(s) Reevaluation #1: Complete resolution of chest wall pain after Toradol medication. Reviewed results with patient and she desires discharge home Time: 18:44 Vital Signs Vital signs: Vital Signs - 8 hr 08/17/20 14:24 Temperature 97.9 F Pulse Rate 89 Respiratory Rate 18 Blood Pressure 148/83 H Pulse Oximetry 100 MDM - Chest Pain Differential Diagnosis Differential diagnosis: Likely fracture of rib, pneumothorax, costochondritis, chest pain and other (Pleurisy) Medical Records Data Attestation: I reviewed the patient's medical records. Lab Data Attestation: I reviewed the patient's lab results. Result diagrams: 08/17/20 14:51 08/17/20 14:51 Labs: Lab Results 08/17/20 08/17/20 08/17/20 Range/Units 14:51 14:51 14:51 WBC 7.2 (4.5-11.0) X10^3/uL RBC 4.44 (4.0-5.2) X10^6/uL Hgb 14.0 (12.0-16.0) g/dL Hct 41.4 (36-46) % MCV 93.3 (80-100) fL MCH 31.5 (26-34) PG MCHC 33.7 (30-36) % RDW 14.7 (11.6-14.8) % Plt Count 223 (150-400) X10^3/uL Neut % (Auto) 70.5 (50-75) % Lymph % (Auto) 18.6 L (25-40) % [place] % (Auto) 6.6 (3-14) % Eos % (Auto) 3.5 (2-4) % Baso % (Auto) 0.8 (0-2) % Neut # (Auto) 5100 (1234-2385) /uL Lymph # (Auto) 1300 (5859-6282) /uL [place] # (Auto) 500 (0-900) /uL Eos # (Auto) 300 (0-450) /uL Baso # (Auto) 100 (0-100) /uL PT 10.9 (10.1-12.7) SECONDS INR 0.9 (0.9-1.3) APTT 34 (26.4-36.2) SECONDS D-Dimer (<230) ng/mL Sodium 135 L (137-145) mmol/L Potassium 4.2 (3.4-5.1) mmol/L Chloride 102 (98-107) mmol/L Carbon Dioxide 26 (22-32) mmol/L BUN 12 (7-17) mg/dL Creatinine 0.63 (0.52-1.04) mg/dL Estimated GFR > 60.0 (>60) mL/min BUN/Creatinine Ratio 19.0 (6-22) Glucose 103 H (70-100) mg/dL Calcium 9.1 (8.4-10.2) mg/dL Total Bilirubin 0.7 (0.2-1.3) mg/dL AST 26 (14-36) IU/L ALT 18 (<35) IU/L Alkaline Phosphatase 84 (38-126) U/L Total Creatine Kinase 40 (30-135) U/L CK-MB (CK-2) TNP CK-MB (CK-2) Rel Index TNP Troponin I < 0.012 (0.01-0.034) ng/mL Total Protein 7.8 (6.3-8.2) g/dL Albumin 4.6 (3.5-5.0) g/dL Globulin 3.2 (1.7-4.1) g/dL Albumin/Globulin Ratio 1.4 (1.0-2.8) Lipase 45 (23-300) U/L Serum , Qual (Negative) 08/17/20 08/17/20 Range/Units 14:51 14:51 WBC (4.5-11.0) X10^3/uL RBC (4.0-5.2) X10^6/uL Hgb (12.0-16.0) g/dL Hct (36-46) % MCV (80-100) fL MCH (26-34) PG MCHC (30-36) % RDW (11.6-14.8) % Plt Count (150-400) X10^3/uL Neut % (Auto) (50-75) % Lymph % (Auto) (25-40) % [place] % (Auto) (3-14) % Eos % (Auto) (2-4) % Baso % (Auto) (0-2) % Neut # (Auto) (4317-5290) /uL Lymph # (Auto) (1019-8811) /uL [place] # (Auto) (0-900) /uL Eos # (Auto) (0-450) /uL Baso # (Auto) (0-100) /uL PT (10.1-12.7) SECONDS INR (0.9-1.3) APTT (26.4-36.2) SECONDS D-Dimer < 200 (<230) ng/mL Sodium (137-145) mmol/L Potassium (3.4-5.1) mmol/L Chloride (98-107) mmol/L Carbon Dioxide (22-32) mmol/L BUN (7-17) mg/dL Creatinine (0.52-1.04) mg/dL Estimated GFR (>60) mL/min BUN/Creatinine Ratio (6-22) Glucose (70-100) mg/dL Calcium (8.4-10.2) mg/dL Total Bilirubin (0.2-1.3) mg/dL AST (14-36) IU/L ALT (<35) IU/L Alkaline Phosphatase (38-126) U/L Total Creatine Kinase (30-135) U/L CK-MB (CK-2) CK-MB (CK-2) Rel Index Troponin I (0.01-0.034) ng/mL Total Protein (6.3-8.2) g/dL Albumin (3.5-5.0) g/dL Globulin (1.7-4.1) g/dL Albumin/Globulin Ratio (1.0-2.8) Lipase (23-300) U/L Serum , Qual Negative (Negative) Imaging Data Chest x-ray: Radiologist's Impression: [address] [id number] ReportSigned Patient: Jil Coffey MMR#: [id number]: 1985Acct:[id number]/Sex: 35 / FDate of Service: 08/17/20Loc: EDAccession Number: [id number] Procedure: XR chest 1V Ordering Provider: Rudolph Mondragon MD PROCEDURE: XR CHEST 1V INDICATIONS: chest pain TECHNIQUE: One view of the chest was acquired. COMPARISON: None. FINDINGS: Surgical changes and devices: None. Lungs and pleura: Lungs are clear. No pleural effusions or pneumothorax. Mediastinum: Mediastinal contours appear normal. Heart size is normal. Bones and chest wall: No suspicious bony lesions. Overlying soft tissues appear unremarkable. IMPRESSION: No acute cardiopulmonary disease. Dictated by: Dayna Beltran M.D. on 08/17/2020 at 16:18 Approved by: Dayna Beltran M.D. on 08/17/2020 at 16:18 ECG Data Attestation: I personally reviewed and interpreted this ECG as follows: Interpretation: Normal sinus rhythm, normal EKG, rate 86, no ST elevation or depression MDM Narrative Medical decision making narrative: Appropriate for discharge home. Pain resolved with Toradol. Pain was reproducible. Low heart score. No repeat heart enzymes indicated patient states she has had this many times before. Always reproducible and in the same pattern and area of the trunk/chest Discharge Plan Departure Patient Disposition: Home Clinical Impression: Acute chest wall pain Instructions: DI for Costochondritis, DI for Chest Pain Activity Restrictions/Additional Instructions: See family doctor this week for recheck. Return if worse or if any questions or concerns. May take ibuprofen for pain. Prescriptions: No Action epinephrine [EpiPen 2-Ozzy] 0.3 mg/0.3 mL auto-injector 0.3 mg IM ONCE RF: 0 ipratropium-albuterol 0.5 mg-3 mg(2.5 mg base)/3 mL solution for nebulization 3 ml INHALATION Q8H Qty: 90 RF: 0 triamcinolone acetonide 0.5 % ointment 1 applic topical BID Qty: 15 RF: 1 ondansetron 4 mg tablet,disintegrating 4 mg PO Q6-8H PRN (Reason: nausea and vomiting) Qty: 30 RF: 5 meloxicam 15 mg tablet 15 mg PO DAILY Qty: 90 RF: 3 venlafaxine 75 mg capsule,extended release 24hr 75 mg PO BEDTIME Qty: 60 RF: 2 amoxicillin-pot clavulanate 500-125 mg tablet 1 tab PO Q12H Qty: 20 RF: 0 fluconazole 150 mg tablet 150 mg PO Q3D Qty: 2 RF: 1 pregabalin 25 mg capsule 25 mg PO DAILY Qty: 90 RF: 1 pregabalin 75 mg capsule 75 mg PO BEDTIME Qty: 90 RF: 3 levofloxacin 500 mg tablet 500 mg PO Q24H Qty: 10 RF: 0 albuterol sulfate 2 puff Inhalation QID PRN (Reason: shortness of breath) RF: 0 meclizine 25 mg tablet 25 mg PO TID PRN (Reason: dizziness or vertigo) Qty: 20 RF: 0 lidocaine [Lidoderm] 5 % adhesive patch,medicated 2 patch TOP DAILY Qty: 30 RF: 0 Referrals: Aleja Argueta ARNP [Primary Care Provider] -
[2020-08-17 18:05] LABS: Pregnancy Test Serum,Qual Negative (Negative)
[2020-08-17 18:20] LABS: D Dimer < 200 ng/mL (<230)
[2020-08-17 18:40] VITALS: BP 136/76; PULSE 78; RESP 16; O2SAT 98
[2020-08-17] MEDS: KETOROLAC 60 MG/2 ML VIAL 15 MG IV (18:48)
== END 2020-08-17 18:57 | disposition home or self-care (01) ==
PROVIDERS: Emergency Provider Emergency Medicine; PCP Nurse Practitioner
DX: R07.89 Other chest pain (principal)
CPT/HCPCS: 36415; 71045; 80053; 82550; 83690; 84484; 84703; 85025; 85379; 85610; 85730; 93005; 96374; 99283; 99284; J1885

== ENCOUNTER → 2020-09-02 11:06 | Outpatient (CLI) | payer OTHER, SELFPAY ==
--- NOTE | 2020-09-02 11:06 | DI.US.S_ITS ---
PROCEDURE: US PELVIC COMPLETE INDICATIONS: endometriosis/pelvic pain/pain with intercourse TECHNIQUE: Real-time scanning was performed of the pelvic organs, with image documentation. Additional endovaginal scanning was necessary due to incomplete visualization of the adnexal and endometrial structures by transabdominal scanning. COMPARISON: None. FINDINGS: Uterus: Uterus is normal in size at 9.1 x 3.9 x 5.1 cm. The endometrium measures 4 mm in combined thickness. Ovaries: The right ovary measures 4 x 2.4 x 2.6 cm. The left ovary measures 4.9 x 2.5 x 2.1 cm. The ovaries have a normal sonographic appearance. Normal appearing arterial waveforms are confirmed to each ovary. No adnexal masses are seen. Other: No pathologic free abdominal or pelvic fluid. IMPRESSION: Unremarkable pelvic ultrasound, without an imaging explanation found for the patient's presenting symptoms. Dictated by: Harsha Figueroa M.D. on 09/02/2020 at 11:06 Approved by: Harsha Figueroa M.D. on 09/02/2020 at 11:07
== END ==
PROVIDERS: PCP Nurse Practitioner; Referring Provider Nurse Practitioner; Visit Provider Nurse Practitioner
DX: N80.9 Endometriosis, unspecified (principal); R10.2 Pelvic and perineal pain; N94.10 Unspecified dyspareunia
CPT/HCPCS: 76830; 76856

== ENCOUNTER → 2020-10-05 10:05 | Outpatient (CLI) | payer OTHER, SELFPAY ==
--- NOTE | 2020-10-05 10:06 | DI.MG.S_ITS ---
BILATERAL DIGITAL DIAGNOSTIC MAMMOGRAM 3D/2D SHORT-TERM FOLLOW-UP: 10/05/2020 CLINICAL: Short term follow up of the left breast, due for bilateral imaging. Comparison is made to exams dated: 04/06/2020 mammogram, 10/06/2019 mammogram, and 10/20/2019 ultrasound [facility]. The tissue of both breasts is heterogeneously dense. This may lower the sensitivity of mammography. There are grouped fine calcifications in the left breast at 1 o'clock middle depth. These are not significantly changed. No other significant masses, calcifications, or other findings are seen in either breast. IMPRESSION: PROBABLY BENIGN The grouped fine calcifications in the left breast are probably benign. A follow-up mammogram in 6 months is recommended to demonstrate continued stability. Exam findings were conveyed to the patient. This exam was interpreted at Station ID: [id number]. NOTE: For mammograms, a report in lay terms will be sent to the patient. Approximately 15% of breast malignancies will not be visualized mammographically. In the management of a palpable breast mass, a negative mammogram must not discourage biopsy of a clinically suspicious lesion. Electronically Signed By: Ruben Gray M.D. [facility]/:10/05/2020 11:34:21 letter sent: Followup Recommended ACR BI-RADS Category 3: Probably benign [id number]
== END ==
PROVIDERS: Family Provider Nurse Practitioner; PCP Nurse Practitioner; Referring Provider Nurse Practitioner; Visit Provider Nurse Practitioner
DX: R92.1 Mammographic calcification found on diagnostic imaging of breast (principal)
CPT/HCPCS: 77066; G0279

== ENCOUNTER → 2020-11-23 09:47 | Outpatient (CLI) | payer OTHER, SELFPAY ==
--- NOTE | 2020-11-23 09:50 | DI.US.S_ITS ---
PROCEDURE: US ABDOMEN LIMITED INDICATIONS: RIGHT LOWER QUADRANT PAIN WITH SNEEZING. RULE OUT HERNIA. TECHNIQUE: Real-time focused scanning was performed of the abdomen, with image documentation. COMPARISON: [facility], , ABDOMEN LIMITED, 12/18/2018, 13:13. FINDINGS: Symptoms are pain with sneezing. Evaluate for hernia. The current study identifies no hernia. IMPRESSION: No hernia found. Dictated by: Arnoldo Johnson M.D. on 11/23/2020 at 10:45 Approved by: Arnoldo Johnson M.D. on 11/23/2020 at 10:45
== END ==
PROVIDERS: Family Provider Nurse Practitioner; PCP Nurse Practitioner; Referring Provider Nurse Practitioner; Visit Provider Nurse Practitioner
DX: R10.31 Right lower quadrant pain (principal)
CPT/HCPCS: 76705

== ENCOUNTER 2020-11-30 08:15 | Outpatient (RCR) | payer OTHER, SELFPAY ==
--- NOTE | 2020-10-04 16:14 | PT.OIE ---
Current Diagnoses Constipation, unspecified (10/04/20) Low back pain (10/04/20) Muscle weakness (generalized) (10/04/20) Other specified disorders of muscle (10/04/20) Pelvic and perineal pain (10/04/20) Lower abdominal pain, unspecified (10/04/20) Past Medical History (Last Reviewed 09/16/20 @ 15:03 by Petrona Vaca MD) Acne Allergies Anemia Anorexia nervosa Anxiety Asthma with allergic rhinitis Breast pain, left Bulimia Chicken pox Chronic pain Dizziness Eating disorder in remission Erythematous papules of skin Gluten enteropathy Heavy menstrual period Irregular menstrual cycle Irritable bowel syndrome Lymphadenopathy, axillary Mass of sternum Migraine headache with aura Migraines Palpitations Plantar warts Rectal prolapse Ulnar neuropathy Vision disorder Past Surgical History (Last Reviewed 09/16/20 @ 15:03 by Petrona Vaca MD) Anesthesia History of elbow surgery (~2016) History of myringotomy (~1994) S/P T&A (status post tonsillectomy and adenoidectomy) (~1990) [place] teeth removed (~2010) Visit Care Team Role Provider Type JAVY Albert Family Provider 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 Primary Care Provider Specialty: Family Practice Address: [address] [place] [address] Email: [email or web address] Petrona Vaca MD Attending Provider Physician Referring Provider Specialty: FLANGE TURNER Address: [address] [place] [address] Email: Physical Therapy Initial Evaluation PT-OP-A Visit Information Start: 09/28/20 17:31 Freq: Status: Active Protocol: Document 10/04/20 12:49 LRN (Rec: 10/04/20 13:40 LRN [id number]) Out-Patient Physical Therapy Visit Information Visit Information Visit Type Initial Evaluation Visit Start Time 12:47 Visit Stop Time 13:37 Total Visit Minutes 50 Visit Number 1 Evaluation Information Evaluation Date 10/04/20 Precautions Precautions Endometriosis symptoms, fibromyalgia, neuropathy of L elbow, severe pain in pelvic floor & abdominal region. PT-OP-B Current Condition Start: 09/28/20 17:31 Freq: Status: Active Protocol: Document 10/04/20 12:49 LRN (Rec: 10/04/20 13:40 LRN [id number]) Current Condition History of Current Condition Onset Date Past 6 months pelvic pain has become untolerable. Current Complaints Pain with urination, defecation, intercourse. History of Current Condition Pt is being referred to therapy for Pelvic Floor Tension. Pt reports severe abdominal pain with negative CT scans; within the past 6 months her pain has become so severe that she now has pain with urination and defecation and is not able to have intercourse with spouse. She states she was referred to Dr. Vaca for endometriosis and was found to be tight and swollen in her PF muscles. She is to start with pelvic floor PT before going into endometriosis treatments. Pt feels she has endo-belly. Prior Treatments and Tests None Future Testing and Treatments Planned Treatments for endometriosis. Possible hysterectomy. Developmental History Developmental History Abdominal pain as teen that worsened during her menstrual cycle. Found if she stopped using tampons she had less blood clotting and pain less. Over the past year the pain has increased, causing pain with urination, defecation and intercourse. She states she has not stopped intercourse, last time performed was 3 weeks ago. Pt has 3 children, ages 11 & 13, both vaginal deliveries, no tearing, hemorrhoids with 2nd child. 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 Treatment Goals Patient/Caregiver Goals Pt goal: 1) lessen the pain to be more comfortable stating tolerable pain would be only while on period, and 2) decrease pain with urination/ defection intermittent rated 3 -4/10. Prior Functional Status Baseline Function- ADL's Independent Baseline Function- Mobility Independent Baseline Function- Other Pain in abdominal and pelvic region is 4-5/10. Pain in rectal region constant , hemorrhoids. Current Functional Impairments (Reported) Functional Limitations- ADL's Constant pain with urination & defecation. Pain with intercourse. Intermittent R low back shooting pain that makes her partly drop to the floor. Constant lower abdomen/pelvic region pain rated 8-9/10. 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 Personal Factors Other Personal Factors That May Effect History of back pain, Therapy/Recovery fibromyalgia (2019), endometriosis, headaches/ migraines/dizziness due to deviated septum and bone spur on nasal L side of septum. PT-OP-C Subjective Start: 09/28/20 17:31 Freq: Status: Active Protocol: Document 10/04/20 12:49 LRN (Rec: 10/04/20 13:40 LRN [id number]) Patient Questionnaires Pelvic Pain and Urgency/Frequency Patient Symptom Scale Pelvic Pain Score 23 OP-PT Pain Assessment Pain Assessment Grid Paper Pain Assessment Grid Completed Yes Location Low Back Pain Location Details Low back dull pain with occasional sharp pain shoots up back Intensity 8 Description Sharp,Shooting Description- Other Achy pain generally , 2-3/10 Frequency Intermittent Other Pain Alleviating Factors Lidocaine patch. Pelvic Floor/perineum Pain Location Details Perineal node to rectum Intensity 8 Scale Used Numeric (0 - 10) Description Aching,Burning Lower abdomen Pain Location Details Across lower abdomen Intensity 8 Scale Used Numeric (0 - 10) Description Aching,Burning Comments Pain Comments R low back pain, R abdominal pain, L Rectum pain. PT-OP-I Pelvic Floor Start: 09/28/20 17:31 Freq: Status: Active Protocol: Document 10/04/20 12:49 LRN (Rec: 10/04/20 13:40 LRN [id number]) Pelvic Floor Assessment Urine Pelvic Floor Surgery No Leakage Size Small Leakage Cause Cough,Exercise,Sneeze,Urge Leaks Per Day 5-6 Pads Used In 24 Hours 5-10 Urine Pad Type Panty Liner Bowel Bowel Surgery No Bowel Symptoms Constipation,Pain PT-OP-J Posture/Palpation/Skin Start: 09/28/20 17:31 Freq: Status: Active Protocol: Document 10/04/20 12:49 LRN (Rec: 10/04/20 13:40 LRN [id number]) Posture Evaluation Position Standing T-Spine Posture Flattened L-Spine Posture Increased Lordosis Scapula Posture (L) Elevated Knee Posture (L) Genu Valgus,(R) Genu Valgus Comments Posture Comments Dowagers Hump, L shoulder/ scapula/elevated PT-OP-K Range of Motion Start: 09/28/20 17:31 Freq: Status: Active Protocol: Document 10/04/20 12:49 LRN (Rec: 10/04/20 13:40 LRN [id number]) Lumbar Spine Range of Motion Lumbar Spine Active Percentage Testing Position Standing Flexion 80 Rotation Left 90 Rotation Right 90 Lateral Flexion Left 100 Lateral Flexion Right 100 Comments 15 deg's ext Hip Goniometric Range of Motion Hip Right Passive Internal Rotation 30 External Rotation 75 Left Passive Internal Rotation 45 External Rotation 80 PT-OP-M Strength Start: 09/28/20 17:31 Freq: Status: Active Protocol: Document 10/04/20 12:49 LRN (Rec: 10/04/20 13:40 LRN [id number]) Hip Strength Hip Manual Muscle Testing Right Flexion (L2) 5 Normal Abduction 5 Normal Adduction 5 Normal External Rotation 4+ Good+ Internal Rotation 4+ Good+ Left Flexion (L2) 5 Normal Abduction 5 Normal Adduction 5 Normal External Rotation 4+ Good+ Internal Rotation 4+ Good+ PT-OP-Q Treatments Start: 09/28/20 17:31 Freq: Status: Active Protocol: Document 10/04/20 12:49 LRN (Rec: 10/04/20 13:40 LRN [id number]) Self-Care/Home Management Treatment Education Other Education Discussed results of evaluation, goals, and Plan of care. Pt agreeable. Activities Self-Care/Home Management Activities I/S pt to do PF stretch of Happy Baby Pose (due to pt familiar with yoga positioning ). PT-OP-T Assessment and Plan Start: 09/28/20 17:31 Freq: Status: Active Protocol: Document 10/04/20 12:49 LRN (Rec: 10/04/20 13:40 LRN [id number]) Physical Therapy Assessment Rehab Potential Rehabilitation Potential Good Evaluation Complexity Number of Personal Factors/Comorbidities 3 or More Number of Body Systems Impaired 4 or More Clinical Presentation at Evaluation Evolving Impairments Impairments Activity Tolerance,Pain, Posture,ROM,Soft Tissue Mobility,Strength Goals Four Impairment Abdominal and occasional back pain (rated 8-9/10) Short Term Goal (STG) Improve core strength and educate pt in proper bowel care. STG Duration 11/12/20 Senior Care Goal (LTG) Pt will have decreased general abdominal pain and reduced onset of back pain when not on her period, no greater than 4 /10. LTG Duration 12/17/20 Three Impairment PF pain causing apprehension w /urination and defecation ( rated 8-9/10) Short Term Goal (STG) Pt will be educated in proper PF care. STG Duration 11/12/20 Senior Care Goal (LTG) Decrease pain with urination/ defection, intermittent, rated 3-4/10. LTG Duration 12/17/20 Two Impairment Constant PF pain Short Term Goal (STG) Pt educated in self trigger point and downtraining treatment. STG Duration 10/22/20 Senior Care Goal (LTG) lessen the pain to be more comfortable (tolerable pain would be intermittent, only while on period). LTG Duration 12/17/20 One Impairment Pt lacks appropriate self care HEP. Short Term Goal (STG) Pt will be educated in a self stretch program of PF/hips STG Duration 10/29/20 Cover Cutter Goal (LTG) Pt will be educate in a self care HEP for independent care. LTG Duration 12/17/20 Assessment Summary Assessment Pt is a 35 yo female who presents with complaints of abdominal and pelvic pain with a history of back pain that starts on the R side and is described as sharp shooting pain up the back. The pt is quite sensitive in the abdominal region above the symphysis pubis and is tender in the pelvic floor externally on the left side and on the superficial transverse perineal muscle and perineal node. She is very tender in the posterior PF region externally. I deferred internal assessment due to the pt's pain complaints and pain behaviors of jumping away with light touch. The pt's labia minor and majora tissues are quite red and tender to very light touch. Healing of these tissues would help to decrease her pain. She appears to have a palpable separation of her symphysis pubis; therefore pelvic instability affecting her SI joints. I was unable to assess her SI joints due to poor tolerance to therapy. I will attempt to complete pelvic and pelvic floor assessment as the pt tolerates . The pt will benefit from skilled physical therapy for education in proper PF care, body mechanics training and transfers; STM and self care STM (abdomen, low back, perineum, pelvic floor); stabilization of pelvis, hips & low back. Physical Therapy Plan Frequency and Duration Frequency of Treatment 1x/Week Plan of Care Start Date 10/04/20 Plan of Care End Date 12/17/20 Therapeutic Interventions Therapeutic Interventions Aquatic Therapy,Home Exercise Program,Joint Mobilizations, Manual Therapy,Neuromuscular Re-education,Patient/Caregiver Education,Self-Care/Home Management,Soft Tissue Mobilization,Taping, Therapeutic Activities, Therapeutic Exercises Modalities Biofeedback,Cold Pack/Ice Massage,Electric Stimulation, Hot Packs,Ultrasound Other Therapeutic Interventions Downtraining, visceral mobilization. Other Referrals/Consults Referrals/Consults Recommended Pt may need psychological support due to the chronicity of her pain with sexual intercourse. Next Visit Focus/Plan Next Note Type Treatment Note Next Visit Plan Review & discussed Bladder Diary. Assess for SIJ dysfunction. Initiate self care ex's of PF, abdominal, & hip stretches. Start self care ANS quieting, relaxation training (diaphragm breathing, neuromuscular relaxation ( Glazer's or modified Glazer's protocol). Glazer's protocol 10 sec max contraction f/b 10 sec relaxation, 45-60x, 2x/day . Manual therapy (JMT SIJ if needed; STM posterior PF, abdomen for visceral mobs, hip AD's, ?LB, PF). Modalities: IFES. Self care of ice/heat. Therapeutic Ex (postural, flexibility, trunk stab). Education/functional training (dilators, SI belt, PF care, behavioral toileting. Basic sexuality info (positioning, lubrication. Possible need for psychologist or sex therapist. Pt may need MD discussion on vaginal PH.
--- NOTE | 2020-10-05 12:14 | PT.OIE ---
Current Diagnoses Constipation, unspecified (10/04/20) Low back pain (10/04/20) Muscle weakness (generalized) (10/04/20) Other specified disorders of muscle (10/04/20) Pelvic and perineal pain (10/04/20) Lower abdominal pain, unspecified (10/04/20) Past Medical History (Last Reviewed 09/16/20 @ 15:03 by Petrona Vaca MD) Acne Allergies Anemia Anorexia nervosa Anxiety Asthma with allergic rhinitis Breast pain, left Bulimia Chicken pox Chronic pain Dizziness Eating disorder in remission Erythematous papules of skin Gluten enteropathy Heavy menstrual period Irregular menstrual cycle Irritable bowel syndrome Lymphadenopathy, axillary Mass of sternum Migraine headache with aura Migraines Palpitations Plantar warts Rectal prolapse Ulnar neuropathy Vision disorder Past Surgical History (Last Reviewed 09/16/20 @ 15:03 by Petrona Vaca MD) Anesthesia History of elbow surgery (~2016) History of myringotomy (~1994) S/P T&A (status post tonsillectomy and adenoidectomy) (~1990) [place] teeth removed (~2010) Visit Care Team Role Provider Type JAVY Albert Family Provider Advanced Iron Bender Primary Care Provider Specialty: Family Practice Address: [address] [place] [address] Email: [email or web address] Petrona Vaca MD Attending Provider Physician Referring Provider Specialty: FILM PROJECTOR OPERATOR Address: [address] [place] [address] Email: Physical Therapy Initial Evaluation PT-OP-A Visit Information Start: 09/28/20 17:31 Freq: Status: Active Protocol: Document 10/04/20 12:49 LRN (Rec: 10/04/20 13:40 LRN [id number]) Out-Patient Physical Therapy Visit Information Visit Information Visit Type Initial Evaluation Visit Start Time 12:47 Visit Stop Time 13:37 Total Visit Minutes 50 Visit Number 1 Evaluation Information Evaluation Date 10/04/20 Precautions Precautions Endometriosis symptoms, fibromyalgia, neuropathy of L elbow, severe pain in pelvic floor & abdominal region. PT-OP-B Current Condition Start: 09/28/20 17:31 Freq: Status: Active Protocol: Document 10/04/20 12:49 LRN (Rec: 10/04/20 13:40 LRN [id number]) Current Condition History of Current Condition Onset Date Past 6 months pelvic pain has become untolerable. Current Complaints Pain with urination, defecation, intercourse. History of Current Condition Pt is being referred to therapy for Pelvic Floor Tension. Pt reports severe abdominal pain with negative CT scans; within the past 6 months her pain has become so severe that she now has pain with urination and defecation and is not able to have intercourse with spouse. She states she was referred to Dr. Vaca for endometriosis and was found to be tight and swollen in her PF muscles. She is to start with pelvic floor PT before going into endometriosis treatments. Pt feels she has endo-belly. Prior Treatments and Tests None Future Testing and Treatments Planned Treatments for endometriosis. Possible hysterectomy. Developmental History Developmental History Abdominal pain as teen that worsened during her menstrual cycle. Found if she stopped using tampons she had less blood clotting and pain less. Over the past year the pain has increased, causing pain with urination, defecation and intercourse. She states she has not stopped intercourse, last time performed was 3 weeks ago. Pt has 3 children, ages 11 & 13, both vaginal deliveries, no tearing, hemorrhoids with 2nd child. 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 Treatment Goals Patient/Caregiver Goals Pt goal: 1) lessen the pain to be more comfortable stating tolerable pain would be only while on period, and 2) decrease pain with urination/ defection intermittent rated 3 -4/10. Prior Functional Status Baseline Function- ADL's Independent Baseline Function- Mobility Independent Baseline Function- Other Pain in abdominal and pelvic region is 4-5/10. Pain in rectal region constant , hemorrhoids. Current Functional Impairments (Reported) Functional Limitations- ADL's Constant pain with urination & defecation. Pain with intercourse. Intermittent R low back shooting pain that makes her partly drop to the floor. Constant lower abdomen/pelvic region pain rated 8-9/10. 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 Personal Factors Other Personal Factors That May Effect History of back pain, Therapy/Recovery fibromyalgia (2019), endometriosis, headaches/ migraines/dizziness due to deviated septum and bone spur on nasal L side of septum. PT-OP-C Subjective Start: 09/28/20 17:31 Freq: Status: Active Protocol: Document 10/04/20 12:49 LRN (Rec: 10/04/20 13:40 LRN [id number]) Patient Questionnaires Pelvic Pain and Urgency/Frequency Patient Symptom Scale Pelvic Pain Score 23 OP-PT Pain Assessment Pain Assessment Grid Paper Pain Assessment Grid Completed Yes Location Low Back Pain Location Details Low back dull pain with occasional sharp pain shoots up back Intensity 8 Description Sharp,Shooting Description- Other Achy pain generally , 2-3/10 Frequency Intermittent Other Pain Alleviating Factors Lidocaine patch. Pelvic Floor/perineum Pain Location Details Perineal node to rectum Intensity 8 Scale Used Numeric (0 - 10) Description Aching,Burning Lower abdomen Pain Location Details Across lower abdomen Intensity 8 Scale Used Numeric (0 - 10) Description Aching,Burning Comments Pain Comments R low back pain, R abdominal pain, L Rectum pain. PT-OP-I Pelvic Floor Start: 09/28/20 17:31 Freq: Status: Active Protocol: Document 10/04/20 12:49 LRN (Rec: 10/04/20 13:40 LRN [id number]) Pelvic Floor Assessment Urine Pelvic Floor Surgery No Leakage Size Small Leakage Cause Cough,Exercise,Sneeze,Urge Leaks Per Day 5-6 Pads Used In 24 Hours 5-10 Urine Pad Type Panty Liner Bowel Bowel Surgery No Bowel Symptoms Constipation,Pain PT-OP-J Posture/Palpation/Skin Start: 09/28/20 17:31 Freq: Status: Active Protocol: Document 10/04/20 12:49 LRN (Rec: 10/04/20 13:40 LRN [id number]) Posture Evaluation Position Standing T-Spine Posture Flattened L-Spine Posture Increased Lordosis Scapula Posture (L) Elevated Knee Posture (L) Genu Valgus,(R) Genu Valgus Comments Posture Comments Dowagers Hump, L shoulder/ scapula/elevated PT-OP-K Range of Motion Start: 09/28/20 17:31 Freq: Status: Active Protocol: Document 10/04/20 12:49 LRN (Rec: 10/04/20 13:40 LRN [id number]) Lumbar Spine Range of Motion Lumbar Spine Active Percentage Testing Position Standing Flexion 80 Rotation Left 90 Rotation Right 90 Lateral Flexion Left 100 Lateral Flexion Right 100 Comments 15 deg's ext Hip Goniometric Range of Motion Hip Right Passive Internal Rotation 30 External Rotation 75 Left Passive Internal Rotation 45 External Rotation 80 PT-OP-M Strength Start: 09/28/20 17:31 Freq: Status: Active Protocol: Document 10/04/20 12:49 LRN (Rec: 10/04/20 13:40 LRN [id number]) Hip Strength Hip Manual Muscle Testing Right Flexion (L2) 5 Normal Abduction 5 Normal Adduction 5 Normal External Rotation 4+ Good+ Internal Rotation 4+ Good+ Left Flexion (L2) 5 Normal Abduction 5 Normal Adduction 5 Normal External Rotation 4+ Good+ Internal Rotation 4+ Good+ PT-OP-Q Treatments Start: 09/28/20 17:31 Freq: Status: Active Protocol: Document 10/04/20 12:49 LRN (Rec: 10/04/20 13:40 LRN [id number]) Self-Care/Home Management Treatment Education Other Education Discussed results of evaluation, goals, and Plan of care. Pt agreeable. Activities Self-Care/Home Management Activities I/S pt to do PF stretch of Happy Baby Pose (due to pt familiar with yoga positioning ). PT-OP-T Assessment and Plan Start: 09/28/20 17:31 Freq: Status: Active Protocol: Document 10/04/20 12:49 LRN (Rec: 10/04/20 13:40 LRN [id number]) Physical Therapy Assessment Rehab Potential Rehabilitation Potential Good Evaluation Complexity Number of Personal Factors/Comorbidities 3 or More Number of Body Systems Impaired 4 or More Clinical Presentation at Evaluation Evolving Impairments Impairments Activity Tolerance,Pain, Posture,ROM,Soft Tissue Mobility,Strength Goals Four Impairment Abdominal and occasional back pain (rated 8-9/10) Short Term Goal (STG) Improve core strength and educate pt in proper bowel care. STG Duration 11/12/20 Detention Goal (LTG) Pt will have decreased general abdominal pain and reduced onset of back pain when not on her period, no greater than 4 /10. LTG Duration 12/17/20 Three Impairment PF pain causing apprehension w /urination and defecation ( rated 8-9/10) Short Term Goal (STG) Pt will be educated in proper PF care. STG Duration 11/12/20 Detention Goal (LTG) Decrease pain with urination/ defection, intermittent, rated 3-4/10. LTG Duration 12/17/20 Two Impairment Constant PF pain Short Term Goal (STG) Pt educated in self trigger point and downtraining treatment. STG Duration 10/22/20 Detention Goal (LTG) lessen the pain to be more comfortable (tolerable pain would be intermittent, only while on period). LTG Duration 12/17/20 One Impairment Pt lacks appropriate self care HEP. Short Term Goal (STG) Pt will be educated in a self stretch program of PF/hips STG Duration 10/29/20 Staff Climate Scientist Goal (LTG) Pt will be educate in a self care HEP for independent care. LTG Duration 12/17/20 Assessment Summary Assessment Pt is a 35 yo female who presents with complaints of abdominal and pelvic pain with a history of back pain that starts on the R side and is described as sharp shooting pain up the back. The pt is quite sensitive in the abdominal region above the symphysis pubis and is tender in the pelvic floor externally on the left side and on the superficial transverse perineal muscle and perineal node. She is very tender in the posterior PF region externally. I deferred internal assessment due to the pt's pain complaints and pain behaviors of jumping away with light touch. The pt's labia minor and majora tissues are quite red and tender to very light touch. Healing of these tissues would help to decrease her pain. She appears to have a palpable separation of her symphysis pubis; therefore pelvic instability affecting her SI joints. I was unable to assess her SI joints due to poor tolerance to therapy. I will attempt to complete pelvic and pelvic floor assessment as the pt tolerates . The pt will benefit from skilled physical therapy for education in proper PF care, body mechanics training and transfers; STM and self care STM (abdomen, low back, perineum, pelvic floor); stabilization of pelvis, hips & low back. Physical Therapy Plan Frequency and Duration Frequency of Treatment 1x/Week Plan of Care Start Date 10/04/20 Plan of Care End Date 12/17/20 Therapeutic Interventions Therapeutic Interventions Aquatic Therapy,Home Exercise Program,Joint Mobilizations, Manual Therapy,Neuromuscular Re-education,Patient/Caregiver Education,Self-Care/Home Management,Soft Tissue Mobilization,Taping, Therapeutic Activities, Therapeutic Exercises Modalities Biofeedback,Cold Pack/Ice Massage,Electric Stimulation, Hot Packs,Ultrasound Other Therapeutic Interventions Downtraining, visceral mobilization. Other Referrals/Consults Referrals/Consults Recommended Pt may need psychological support due to the chronicity of her pain with sexual intercourse. Next Visit Focus/Plan Next Note Type Treatment Note Next Visit Plan Review & discussed Bladder Diary. Assess for SIJ dysfunction. Initiate self care ex's of PF, abdominal, & hip stretches. Start self care ANS quieting, relaxation training (diaphragm breathing, neuromuscular relaxation ( Glazer's or modified Glazer's protocol). Glazer's protocol 10 sec max contraction f/b 10 sec relaxation, 45-60x, 2x/day . Manual therapy (JMT SIJ if needed; STM posterior PF, abdomen for visceral mobs, hip AD's, ?LB, PF). Modalities: IFES. Self care of ice/heat. Therapeutic Ex (postural, flexibility, trunk stab). Education/functional training (dilators, SI belt, PF care, behavioral toileting. Basic sexuality info (positioning, lubrication. Possible need for psychologist or sex therapist. Pt may need MD discussion on vaginal PH.
--- NOTE | 2020-10-11 16:53 | PT.OTN ---
Current Diagnoses Constipation, unspecified (10/11/20) Low back pain (10/11/20) Muscle weakness (generalized) (10/11/20) Other specified disorders of muscle (10/11/20) Pelvic and perineal pain (10/11/20) Lower abdominal pain, unspecified (10/11/20) Physical Therapy Treatment Note PT-OP-A Visit Information Start: 09/28/20 17:31 Freq: Status: Active Protocol: Document 10/11/20 12:51 LRN (Rec: 10/11/20 13:33 LRN [id number]) Out-Patient Physical Therapy Visit Information Visit Information Visit Type Treatment Note Visit Start Time 12:51 Visit Stop Time 13:31 Total Visit Minutes 40 Visit Number 2 Evaluation Information Evaluation Date 10/04/20 Precautions Precautions Endometriosis symptoms, fibromyalgia, neuropathy of L elbow, severe pain in pelvic floor & abdominal region. PT-OP-B Current Condition Start: 09/28/20 17:31 Freq: Status: Active Protocol: Document 10/04/20 12:49 LRN (Rec: 10/04/20 13:40 LRN [id number]) Current Condition History of Current Condition Onset Date Past 6 months pelvic pain has become untolerable. Current Complaints Pain with urination, defecation, intercourse. History of Current Condition Pt is being referred to therapy for Pelvic Floor Tension. Pt reports severe abdominal pain with negative CT scans; within the past 6 months her pain has become so severe that she now has pain with urination and defecation and is not able to have intercourse with spouse. She states she was referred to Dr. Vaca for endometriosis and was found to be tight and swollen in her PF muscles. She is to start with pelvic floor PT before going into endometriosis treatments. Pt feels she has endo-belly. Prior Treatments and Tests None Future Testing and Treatments Planned Treatments for endometriosis. Possible hysterectomy. Developmental History Developmental History Abdominal pain as teen that worsened during her menstrual cycle. Found if she stopped using tampons she had less blood clotting and pain less. Over the past year the pain has increased, causing pain with urination, defecation and intercourse. She states she has not stopped intercourse, last time performed was 3 weeks ago. Pt has 3 children, ages 11 & 13, both vaginal deliveries, no tearing, hemorrhoids with 2nd child. 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 Treatment Goals Patient/Caregiver Goals Pt goal: 1) lessen the pain to be more comfortable stating tolerable pain would be only while on period, and 2) decrease pain with urination/ defection intermittent rated 3 -4/10. Prior Functional Status Baseline Function- ADL's Independent Baseline Function- Mobility Independent Baseline Function- Other Pain in abdominal and pelvic region is 4-5/10. Pain in rectal region constant , hemorrhoids. Current Functional Impairments (Reported) Functional Limitations- ADL's Constant pain with urination & defecation. Pain with intercourse. Intermittent R low back shooting pain that makes her partly drop to the floor. Constant lower abdomen/pelvic region pain rated 8-9/10. 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 Personal Factors Other Personal Factors That May Effect History of back pain, Therapy/Recovery fibromyalgia (2019), endometriosis, headaches/ migraines/dizziness due to deviated septum and bone spur on nasal L side of septum. PT-OP-C Subjective Start: 09/28/20 17:31 Freq: Status: Active Protocol: Document 10/11/20 12:51 LRN (Rec: 10/11/20 13:33 LRN [id number]) OP-PT Subjective Patient Comments Patient Comments No change. Didn't do too well with bladder diary. Had bowel movement 1 week ago. Pt states her abdominal pain is worse with bloating 1 week before period and lessens first few days of period and worsens again and more pain with bloating. Period lasts 10 days, then it decreases to normal pain. PT-OP-I Pelvic Floor Start: 09/28/20 17:31 Freq: Status: Active Protocol: Document 10/11/20 12:51 LRN (Rec: 10/11/20 13:33 LRN [id number]) Pelvic Floor Assessment Bowel Bowel Symptoms Constipation,Pain PT-OP-J Posture/Palpation/Skin Start: 09/28/20 17:31 Freq: Status: Active Protocol: Document 10/04/20 12:49 LRN (Rec: 10/04/20 13:40 LRN [id number]) Posture Evaluation Position Standing T-Spine Posture Flattened L-Spine Posture Increased Lordosis Scapula Posture (L) Elevated Knee Posture (L) Genu Valgus,(R) Genu Valgus Comments Posture Comments Dowagers Hump, L shoulder/ scapula/elevated PT-OP-K Range of Motion Start: 09/28/20 17:31 Freq: Status: Active Protocol: Document 10/04/20 12:49 LRN (Rec: 10/04/20 13:40 LRN [id number]) Lumbar Spine Range of Motion Lumbar Spine Active Percentage Testing Position Standing Flexion 80 Rotation Left 90 Rotation Right 90 Lateral Flexion Left 100 Lateral Flexion Right 100 Comments 15 deg's ext Hip Goniometric Range of Motion Hip Right Passive Internal Rotation 30 External Rotation 75 Left Passive Internal Rotation 45 External Rotation 80 PT-OP-M Strength Start: 09/28/20 17:31 Freq: Status: Active Protocol: Document 10/04/20 12:49 LRN (Rec: 10/04/20 13:40 LRN [id number]) Hip Strength Hip Manual Muscle Testing Right Flexion (L2) 5 Normal Abduction 5 Normal Adduction 5 Normal External Rotation 4+ Good+ Internal Rotation 4+ Good+ Left Flexion (L2) 5 Normal Abduction 5 Normal Adduction 5 Normal External Rotation 4+ Good+ Internal Rotation 4+ Good+ PT-OP-Q Treatments Start: 09/28/20 17:31 Freq: Status: Active Protocol: Document 10/11/20 12:51 LRN (Rec: 10/11/20 13:33 LRN [id number]) Self-Care/Home Management Treatment Education Other Education Reviewed & discussed bladder diary: voiding frequency, avoiding nighttime voiding, voiding times, recommended fluid intake, appropriate fluid types (avoiding caffeine & alchol), BM frequency, BM types, pain cycle in relation to menstrual cycle, food sensitivites. Education in urinary delay techinque (as related to various situations and conditions) . Education in Bowel Massage. Education in Bowel Program and increasing fiber in diet ( vegetables & fruit), methods to improve GI motility in AM ( warm water, mag, Vit C, massage). Discussed use of Squatty Potty for BM's. Activities Self-Care/Home Management Activities Issued & reviewed (see above): Bowel Program, Bowel massage , Urinary defer technique. Pt educated (instructed) and issued Small Dilator for PF stretching. PT-OP-T Assessment and Plan Start: 09/28/20 17:31 Freq: Status: Active Protocol: Document 10/11/20 12:51 LRN (Rec: 10/11/20 13:33 LRN [id number]) Physical Therapy Assessment Goals Four Impairment Abdominal and occasional back pain (rated 8-9/10) Short Term Goal (STG) Improve core strength and educate pt in proper bowel care. (10/11/20: Pt educated in Bowel Program and Bowel Massage) STG Duration 11/12/20 (10/11/20: Partially met goal). Specialty Foods Cook Goal (LTG) Pt will have decreased general abdominal pain and reduced onset of back pain when not on her period, no greater than 4 /10. LTG Duration 12/17/20 Three Impairment PF pain causing apprehension w /urination and defecation ( rated 8-9/10) Short Term Goal (STG) Pt will be educated in proper PF care. STG Duration 11/12/20 Jail Goal (LTG) Decrease pain with urination/ defection, intermittent, rated 3-4/10. LTG Duration 12/17/20 Two Impairment Constant PF pain Short Term Goal (STG) Pt educated in self trigger point and downtraining treatment. (10/11/20: Pt educated in self trigger point treatment of PF using dilator). STG Duration 10/22/20 (10/11/20: Partially met goal) Jail Goal (LTG) lessen the pain to be more comfortable (tolerable pain would be intermittent, only while on period). LTG Duration 12/17/20 One Impairment Pt lacks appropriate self care HEP. Short Term Goal (STG) Pt will be educated in a self stretch program of PF/hips. (10/11/20: Pt instructed in self stretch to PF with use of dilator) STG Duration 10/29/20 (10/11/20: Partially met goal) Specialty Foods Cook Goal (LTG) Pt will be educate in a self care HEP for independent care. LTG Duration 12/17/20 Progress Towards Goals Progress Comments Progressed self care program Assessment Summary Assessment Pt conts to have abdominal & pelvic pain with R LBP that is sharp & shooting up the back. Pt suffering from constipation with fluid intake of coffee, alcohol and sparkinling water. Pt had BM 1x in 7 days, type 1 BM with pain on elimination. Pt celiac disease limiting gluten , barley, malt, wheat from diet. Physical Therapy Plan Frequency and Duration Frequency of Treatment 1x/Week Plan of Care Start Date 10/04/20 Plan of Care End Date 12/17/20 Next Visit Focus/Plan Next Note Type Treatment Note Next Visit Plan Check if pt obtained Squatty Potty and educate pt on use. Assess for SIJ dysfunction. Initiate self care ex's of PF, abdominal, & hip stretches. Start self care ANS quieting, relaxation training (diaphragm breathing, neuromuscular relaxation (Glazer's or modified Glazer's protocol). Glazer's protocol 10 sec max contraction f/b 10 sec relaxation, 45-60x, 2x/day. Manual therapy (JMT SIJ if needed); STM posterior PF, abdomen for visceral mobs, hip AD's, ?LB, PF (due to tenderness above the symphysis pubis and in the pelvic floor externally on the left side, on the superficial transverse perineal muscle, perineal node , and in the posterior PF region externally). Modalities: IFES. Self care of ice/heat. Therapeutic Ex ( postural, flexibility, trunk stab). Education/functional training (SI belt, PF care, behavioral toileting. Basic sexuality info (positioning, lubrication. Possible need for psychologist or sex therapist. Pt may need MD discussion on vaginal PH.
--- NOTE | 2020-10-25 15:39 | PT.OTN ---
Current Diagnoses Constipation, unspecified (10/25/20) Low back pain (10/25/20) Muscle weakness (generalized) (10/25/20) Other specified disorders of muscle (10/25/20) Pelvic and perineal pain (10/25/20) Lower abdominal pain, unspecified (10/25/20) Physical Therapy Treatment Note PT-OP-A Visit Information Start: 09/28/20 17:31 Freq: Status: Active Protocol: Document 10/25/20 14:19 LRN (Rec: 10/25/20 15:38 LRN [id number]) Out-Patient Physical Therapy Visit Information Visit Information Visit Type Treatment Note Visit Start Time 14:19 Visit Stop Time 15:07 Total Visit Minutes 48 Visit Number 3 Evaluation Information Evaluation Date 10/04/20 Precautions Precautions Endometriosis symptoms, fibromyalgia, neuropathy of L elbow, severe pain in pelvic floor & abdominal region. PT-OP-B Current Condition Start: 09/28/20 17:31 Freq: Status: Active Protocol: Document 10/04/20 12:49 LRN (Rec: 10/04/20 13:40 LRN [id number]) Current Condition History of Current Condition Onset Date Past 6 months pelvic pain has become untolerable. Current Complaints Pain with urination, defecation, intercourse. History of Current Condition Pt is being referred to therapy for Pelvic Floor Tension. Pt reports severe abdominal pain with negative CT scans; within the past 6 months her pain has become so severe that she now has pain with urination and defecation and is not able to have intercourse with spouse. She states she was referred to Dr. Vaca for endometriosis and was found to be tight and swollen in her PF muscles. She is to start with pelvic floor PT before going into endometriosis treatments. Pt feels she has endo-belly. Prior Treatments and Tests None Future Testing and Treatments Planned Treatments for endometriosis. Possible hysterectomy. Developmental History Developmental History Abdominal pain as teen that worsened during her menstrual cycle. Found if she stopped using tampons she had less blood clotting and pain less. Over the past year the pain has increased, causing pain with urination, defecation and intercourse. She states she has not stopped intercourse, last time performed was 3 weeks ago. Pt has 3 children, ages 11 & 13, both vaginal deliveries, no tearing, hemorrhoids with 2nd child. 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 Treatment Goals Patient/Caregiver Goals Pt goal: 1) lessen the pain to be more comfortable stating tolerable pain would be only while on period, and 2) decrease pain with urination/ defection intermittent rated 3 -4/10. Prior Functional Status Baseline Function- ADL's Independent Baseline Function- Mobility Independent Baseline Function- Other Pain in abdominal and pelvic region is 4-5/10. Pain in rectal region constant , hemorrhoids. Current Functional Impairments (Reported) Functional Limitations- ADL's Constant pain with urination & defecation. Pain with intercourse. Intermittent R low back shooting pain that makes her partly drop to the floor. Constant lower abdomen/pelvic region pain rated 8-9/10. 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 Personal Factors Other Personal Factors That May Effect History of back pain, Therapy/Recovery fibromyalgia (2019), endometriosis, headaches/ migraines/dizziness due to deviated septum and bone spur on nasal L side of septum. PT-OP-C Subjective Start: 09/28/20 17:31 Freq: Status: Active Protocol: Document 10/25/20 14:19 LRN (Rec: 10/25/20 15:38 LRN [id number]) OP-PT Subjective Patient Comments Patient Comments Having bowel movements and stomach pain is less (today no pain). Yesterday didn't have BM and hasn't had one yet. BM's sometimes are type 3. Has found flax seed with yogurt has been helpful. Abdominal distension is not there. States squatty potty use has helped a lot. Far and few in between, R back pain. Abdomen pain comes and goes. Worst is L breast (under rib- cage) pain that shoots into back of shoulder and into arm. PT-OP-I Pelvic Floor Start: 09/28/20 17:31 Freq: Status: Active Protocol: Document 10/11/20 12:51 LRN (Rec: 10/11/20 13:33 LRN [id number]) Pelvic Floor Assessment Bowel Bowel Symptoms Constipation,Pain PT-OP-J Posture/Palpation/Skin Start: 09/28/20 17:31 Freq: Status: Active Protocol: Document 10/04/20 12:49 LRN (Rec: 10/04/20 13:40 LRN [id number]) Posture Evaluation Position Standing T-Spine Posture Flattened L-Spine Posture Increased Lordosis Scapula Posture (L) Elevated Knee Posture (L) Genu Valgus,(R) Genu Valgus Comments Posture Comments Dowagers Hump, L shoulder/ scapula/elevated PT-OP-K Range of Motion Start: 09/28/20 17:31 Freq: Status: Active Protocol: Document 10/04/20 12:49 LRN (Rec: 10/04/20 13:40 LRN [id number]) Lumbar Spine Range of Motion Lumbar Spine Active Percentage Testing Position Standing Flexion 80 Rotation Left 90 Rotation Right 90 Lateral Flexion Left 100 Lateral Flexion Right 100 Comments 15 deg's ext Hip Goniometric Range of Motion Hip Right Passive Internal Rotation 30 External Rotation 75 Left Passive Internal Rotation 45 External Rotation 80 PT-OP-M Strength Start: 09/28/20 17:31 Freq: Status: Active Protocol: Document 10/04/20 12:49 LRN (Rec: 10/04/20 13:40 LRN [id number]) Hip Strength Hip Manual Muscle Testing Right Flexion (L2) 5 Normal Abduction 5 Normal Adduction 5 Normal External Rotation 4+ Good+ Internal Rotation 4+ Good+ Left Flexion (L2) 5 Normal Abduction 5 Normal Adduction 5 Normal External Rotation 4+ Good+ Internal Rotation 4+ Good+ PT-OP-Q Treatments Start: 09/28/20 17:31 Freq: Status: Active Protocol: Document 10/25/20 14:19 LRN (Rec: 10/25/20 15:38 LRN [id number]) Manual Therapy Treatment Soft Tissue Mobilization Hip ADD at Pube Body Location R Inferior Pub of hip AD tendon attachment Mobilization Type Trigger Point Release Intensity/Depth Moderate Body Position Hooklying Comments Also done in supine. Superior Pub Body Location Superior Pub Mobilization Type Trigger Point Release R Iliopsoas Body Location R Iliopsoas Mobilization Type Trigger Point Release Intensity/Depth Superficial Body Position Hooklying Manual Techniques S/CS Type S/CS Body Location R Iliopsoas Body Position Sidelying Reps/Duration 5' Comments Much cuing needed to keep R leg relaxed on return to start . Pillows used to support RLE . Neuro Re-Education Treatment Other Activities PF relax/contraction Details Awareness training in FB/ Hamstring stretch position & sitting Reps/Duration 12' Self-Care/Home Management Treatment Education Other Education Pt education in use of breathing to have bowel movement. Educated pt in self TrP treatment to Iliopsoas at ASIS , hip AD and suprapubic location. Discussed & educated pt in decreasing pain with intercourse with: urination before & after activity, use of foreplay to improve circulation, and relaxation afterward. Educated pt on why urinary delay technique may not work if pt is having ms spasms of PF. Activities Self-Care/Home Management Activities I/S pt in self care program of : Using breathwork for BM's, start walking program, pt to incorporate pre & post intercourse self care as described above. PT-OP-T Assessment and Plan Start: 09/28/20 17:31 Freq: Status: Active Protocol: Document 10/25/20 14:19 LRN (Rec: 10/25/20 15:38 LRN [id number]) Physical Therapy Assessment Goals Four Impairment Abdominal and occasional back pain (rated 8-9/10) Short Term Goal (STG) Improve core strength and educate pt in proper bowel care. (10/11/20: Pt educated in Bowel Program and Bowel Massage) STG Duration 11/12/20 (10/11/20: Partially met goal). Correction Goal (LTG) Pt will have decreased general abdominal pain and reduced onset of back pain when not on her period, no greater than 4 /10. LTG Duration 12/17/20 Three Impairment PF pain causing apprehension w /urination and defecation ( rated 8-9/10) Short Term Goal (STG) Pt will be educated in proper PF care. STG Duration 11/12/20 Imaging Analyst Goal (LTG) Decrease pain with urination/ defection, intermittent, rated 3-4/10. LTG Duration 12/17/20 Two Impairment Constant PF pain Short Term Goal (STG) Pt educated in self trigger point and downtraining treatment. (10/11/20: Pt educated in self trigger point treatment of PF using Small Dilator and at hip AD, suprapubic region & ASIS). STG Duration 10/22/20 (10/11/20: Partially met goal) Correction Goal (LTG) lessen the pain to be more comfortable (tolerable pain would be intermittent, only while on period). LTG Duration 12/17/20 One Impairment Pt lacks appropriate self care HEP. Short Term Goal (STG) Pt will be educated in a self stretch program of PF/hips. (10/11/20: Pt instructed in self stretch to PF with use of dilator) STG Duration 10/29/20 (10/11/20: Partially met goal) Correction Goal (LTG) Pt will be educate in a self care HEP for independent care. (10/25/20: Pt educated in self TrP treatment in pelvic region, use of breathing to have BM & initial education in S/CS for Ililopsoas & I/S for hip flexor stretching). LTG Duration 12/17/20 (10/25/20: Progressing) Progress Towards Goals Progress Comments Pt abdominal pain complaint and R LBP is less. BM's more regular except for today. Assessment Summary Assessment Good success with improving BM 's daily (except today) with change in diet (increased fiber, decrease caffeine and wine) and ease of BM's with squatty potty; therefore less abdominal and R LBP complaints . Pt general inflammation may be decreased, but a discussion may be needed regarding soda and sugar. Per pt discription, pain with intercourse is at start; therefore tightness at vaginal opening may be causing pain, or ms spasm/lack of circulation. Pt pain after intercourse appears ms spasm related. Physical Therapy Plan Frequency and Duration Frequency of Treatment 1x/Week Plan of Care Start Date 10/04/20 Plan of Care End Date 12/17/20 Next Visit Focus/Plan Next Note Type Treatment Note Next Visit Plan Check pt use of dilator. Review: urination before/ after intercourse, use of deep breathing/imagery/relaxation PF/TrP treatment after intercourse to manage PF ms spasm. Discuss general inflammation due to sugar and sugary drinks. Assess for SIJ dysfunction. Initiate self care ex's of PF, abdominal, & hip stretches. Start self care ANS quieting, relaxation training (diaphragm breathing, neuromuscular relaxation (Glazer's or modified Glazer's protocol). Glazer's protocol 10 sec max contraction f/b 10 sec relaxation, 45-60x, 2x/day. Manual therapy (JMT SIJ if needed); STM posterior PF, abdomen for visceral mobs, hip AD's, ?LB, PF (due to tenderness above the symphysis pubis and in the pelvic floor externally on the left side, on the superficial transverse perineal muscle, perineal node , and in the posterior PF region externally). Modalities: IFES. Self care of ice/heat. Therapeutic Ex ( postural, flexibility, trunk stab). Education/functional training (SI belt, PF care, behavioral toileting. Basic sexuality info (positioning, lubrication). Possible need for psychologist or sex therapist. Pt may need MD discussion on vaginal PH. Pt may need referral for L underbreast pain that shoots into posterior shoulder and down L UE.
--- NOTE | 2020-11-01 16:04 | PT.OTN ---
Current Diagnoses Constipation, unspecified (11/01/20) Low back pain (11/01/20) Muscle weakness (generalized) (11/01/20) Other specified disorders of muscle (11/01/20) Pelvic and perineal pain (11/01/20) Lower abdominal pain, unspecified (11/01/20) Physical Therapy Treatment Note PT-OP-A Visit Information Start: 09/28/20 17:31 Freq: Status: Active Protocol: Document 11/01/20 12:46 LRN (Rec: 11/01/20 14:21 LRN [id number]) Out-Patient Physical Therapy Visit Information Visit Information Visit Type Treatment Note Visit Start Time 12:46 Visit Stop Time 13:31 Total Visit Minutes 45 Visit Number 4 Evaluation Information Evaluation Date 10/04/20 Precautions Precautions Endometriosis symptoms, fibromyalgia, neuropathy of L elbow, severe pain in pelvic floor & abdominal region. PT-OP-B Current Condition Start: 09/28/20 17:31 Freq: Status: Active Protocol: Document 10/04/20 12:49 LRN (Rec: 10/04/20 13:40 LRN [id number]) Current Condition History of Current Condition Onset Date Past 6 months pelvic pain has become untolerable. Current Complaints Pain with urination, defecation, intercourse. History of Current Condition Pt is being referred to therapy for Pelvic Floor Tension. Pt reports severe abdominal pain with negative CT scans; within the past 6 months her pain has become so severe that she now has pain with urination and defecation and is not able to have intercourse with spouse. She states she was referred to Dr. Vaca for endometriosis and was found to be tight and swollen in her PF muscles. She is to start with pelvic floor PT before going into endometriosis treatments. Pt feels she has endo-belly. Prior Treatments and Tests None Future Testing and Treatments Planned Treatments for endometriosis. Possible hysterectomy. Developmental History Developmental History Abdominal pain as teen that worsened during her menstrual cycle. Found if she stopped using tampons she had less blood clotting and pain less. Over the past year the pain has increased, causing pain with urination, defecation and intercourse. She states she has not stopped intercourse, last time performed was 3 weeks ago. Pt has 3 children, ages 11 & 13, both vaginal deliveries, no tearing, hemorrhoids with 2nd child. 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 Treatment Goals Patient/Caregiver Goals Pt goal: 1) lessen the pain to be more comfortable stating tolerable pain would be only while on period, and 2) decrease pain with urination/ defection intermittent rated 3 -4/10. Prior Functional Status Baseline Function- ADL's Independent Baseline Function- Mobility Independent Baseline Function- Other Pain in abdominal and pelvic region is 4-5/10. Pain in rectal region constant , hemorrhoids. Current Functional Impairments (Reported) Functional Limitations- ADL's Constant pain with urination & defecation. Pain with intercourse. Intermittent R low back shooting pain that makes her partly drop to the floor. Constant lower abdomen/pelvic region pain rated 8-9/10. 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 Personal Factors Other Personal Factors That May Effect History of back pain, Therapy/Recovery fibromyalgia (2019), endometriosis, headaches/ migraines/dizziness due to deviated septum and bone spur on nasal L side of septum. PT-OP-C Subjective Start: 09/28/20 17:31 Freq: Status: Active Protocol: Document 11/01/20 12:46 LRN (Rec: 11/01/20 14:21 LRN [id number]) OP-PT Subjective Patient Comments Patient Comments Having abdominal and lower pelvic pressure, that happens when she is about to have a period. Not using dilator because got the stomach flu. Had to take son to ER due to concussion. Have been doing 15' walks. Hasn't noticed pelvic pain except acouple days of inflammed and stopped. Now starting up again because of period. Can now have a BM without havig to use the squatty potty. Nasal surgery on 11/08/20. PT-OP-I Pelvic Floor Start: 09/28/20 17:31 Freq: Status: Active Protocol: Document 10/11/20 12:51 LRN (Rec: 10/11/20 13:33 LRN [id number]) Pelvic Floor Assessment Bowel Bowel Symptoms Constipation,Pain PT-OP-J Posture/Palpation/Skin Start: 09/28/20 17:31 Freq: Status: Active Protocol: Document 10/04/20 12:49 LRN (Rec: 10/04/20 13:40 LRN [id number]) Posture Evaluation Position Standing T-Spine Posture Flattened L-Spine Posture Increased Lordosis Scapula Posture (L) Elevated Knee Posture (L) Genu Valgus,(R) Genu Valgus Comments Posture Comments Dowagers Hump, L shoulder/ scapula/elevated PT-OP-K Range of Motion Start: 09/28/20 17:31 Freq: Status: Active Protocol: Document 10/04/20 12:49 LRN (Rec: 10/04/20 13:40 LRN [id number]) Lumbar Spine Range of Motion Lumbar Spine Active Percentage Testing Position Standing Flexion 80 Rotation Left 90 Rotation Right 90 Lateral Flexion Left 100 Lateral Flexion Right 100 Comments 15 deg's ext Hip Goniometric Range of Motion Hip Right Passive Internal Rotation 30 External Rotation 75 Left Passive Internal Rotation 45 External Rotation 80 PT-OP-M Strength Start: 09/28/20 17:31 Freq: Status: Active Protocol: Document 10/04/20 12:49 LRN (Rec: 10/04/20 13:40 LRN [id number]) Hip Strength Hip Manual Muscle Testing Right Flexion (L2) 5 Normal Abduction 5 Normal Adduction 5 Normal External Rotation 4+ Good+ Internal Rotation 4+ Good+ Left Flexion (L2) 5 Normal Abduction 5 Normal Adduction 5 Normal External Rotation 4+ Good+ Internal Rotation 4+ Good+ PT-OP-Q Treatments Start: 09/28/20 17:31 Freq: Status: Active Protocol: Document 11/01/20 12:46 LRN (Rec: 11/01/20 14:21 LRN [id number]) Therapeutic Exercises Supine Exercises Lateral Hip stretch Supine Exercise Name ............... Reps/Minutes 6' Piriformis stretch Supine Exercise Name ......... Reps/Minutes 6' Child's Pose Supine Exercise Name Child's Pose Reps/Minutes 3/' Rock Backs Supine Exercise Name Rock Backs Reps/Minutes 3' Hip Flexor stretch Supine Exercise Name Regis test position Side bilateral Reps/Minutes 5' Happy Baby Pose Supine Exercise Name Happy Baby Pose Reps/Minutes 3' Self-Care/Home Management Treatment Education Other Education Discussed achiness of lower abdomen and discussed fluid intake and bowel massage. Educated & Discussed PF care of voiding before and after intercourse to minimize PF ms spasms. Activities Self-Care/Home Management Activities Issued & reviewed HEP: ..... .......................... PT-OP-T Assessment and Plan Start: 09/28/20 17:31 Freq: Status: Active Protocol: Document 11/01/20 12:46 LRN (Rec: 11/01/20 14:21 LRN [id number]) Physical Therapy Assessment Goals Four Impairment Abdominal and occasional back pain (rated 8-9/10) Short Term Goal (STG) Improve core strength and educate pt in proper bowel care. (10/11/20: Pt educated in Bowel Program and Bowel Massage) STG Duration 11/12/20 (10/11/20: Partially met goal). Prison Goal (LTG) Pt will have decreased general abdominal pain and reduced onset of back pain when not on her period, no greater than 4 /10. LTG Duration 12/17/20 Three Impairment PF pain causing apprehension w /urination and defecation ( rated 8-9/10) Short Term Goal (STG) Pt will be educated in proper PF care. STG Duration 11/12/20 Training Analyst Goal (LTG) Decrease pain with urination/ defection, intermittent, rated 3-4/10. LTG Duration 12/17/20 Two Impairment Constant PF pain Short Term Goal (STG) Pt educated in self trigger point and downtraining treatment. (10/11/20: Pt educated in self trigger point treatment of PF using Small Dilator and at hip AD, suprapubic region & ASIS). STG Duration 10/22/20 (10/11/20: Partially met goal) Training Analyst Goal (LTG) lessen the pain to be more comfortable (tolerable pain would be intermittent, only while on period). LTG Duration 12/17/20 One Impairment Pt lacks appropriate self care HEP. Short Term Goal (STG) Pt will be educated in a self stretch program of PF/hips. (10/11/20: Pt instructed in self stretch to PF with use of dilator) (11/01/20: Pt given hip stretches for HEP) STG Duration 10/29/20 (11/01/20: MET GOAL) Prison Goal (LTG) Pt will be educate in a self care HEP for independent care. (10/25/20: Pt educated in self TrP treatment in pelvic region, use of breathing to have BM & initial education in S/CS for Ililopsoas & I/S for hip flexor stretching) (11/01/20: HEP issued: Hip ER /IR/Iliopsoas stretches, Happy Baby Posek CHild's Pose, Rock Back stretches) LTG Duration 12/17/20 (11/01/20: Progressing) Progress Towards Goals Progress Comments STG #1 MET. Pt's HEP progressed. Assessment Summary Assessment Pt can now have a BM without having to use a squatty potty. She has mostly pressure in abdominal region; therefore pain appears less. Pt has not been stretching her PF with dilator. Pt did not present with SIJ dysfunction today with level pelvis and equal leg lengths and Negative Shaun Test. Physical Therapy Plan Frequency and Duration Frequency of Treatment 1x/Week Plan of Care Start Date 10/04/20 Plan of Care End Date 12/17/20 Next Visit Focus/Plan Next Note Type Treatment Note Next Visit Plan Check progress with dilator. Educate pt in proper PF care. Discuss/educate ()Goal #2): use of deep breathing/imagery/ relaxation PF/TrP treatment after intercourse to manage PF ms spasm. Discuss general inflammation due to sugar and sugary drinks. Review self care ex's of PF (Happy Baby Pose, Child's pose, Rock Backs ) and hip stretches. Add abdominal stretches. Start self care ANS quieting, relaxation training (diaphragm breathing, neuromuscular relaxation (Glazer's or modified Glazer's protocol - Glazer's protocol 10 sec max contraction f/b 10 sec relaxation, 45-60x, 2x/day). Manual therapy: STM posterior PF, abdomen for visceral mobs, hip AD's, ?LB, PF (due to tenderness above the symphysis pubis and in the pelvic floor externally on the left side, on the superficial transverse perineal muscle, perineal node , and in the posterior PF region externally). Modalities: IFES. Self care of ice/heat. Therapeutic Ex ( postural, flexibility, trunk stab). Education/functional training (SI belt, PF care, basic sexuality info of positioning, lubrication). Possible need for psychologist or sex therapist. Pt may need MD discussion on vaginal PH. Pt may need referral for L underbreast pain that shoots into posterior shoulder and down L UE.
--- NOTE | 2020-11-30 13:29 | PT.OTN ---
Current Diagnoses Constipation, unspecified (11/30/20) Low back pain (11/30/20) Muscle weakness (generalized) (11/30/20) Other specified disorders of muscle (11/30/20) Pelvic and perineal pain (11/30/20) Lower abdominal pain, unspecified (11/30/20) Physical Therapy Treatment Note PT-OP-A Visit Information Start: 09/28/20 17:31 Freq: Status: Active Protocol: Document 11/30/20 08:23 LRN (Rec: 11/30/20 09:04 LRN [id number]) Out-Patient Physical Therapy Visit Information Visit Information Visit Type Treatment Note Visit Start Time 08:23 Visit Stop Time 09:00 Total Visit Minutes 37 Visit Number 5 Evaluation Information Evaluation Date 10/04/20 Precautions Precautions Endometriosis symptoms, fibromyalgia, neuropathy of L elbow, severe pain in pelvic floor & abdominal region. PT-OP-B Current Condition Start: 09/28/20 17:31 Freq: Status: Active Protocol: Document 10/04/20 12:49 LRN (Rec: 10/04/20 13:40 LRN [id number]) Current Condition History of Current Condition Onset Date Past 6 months pelvic pain has become untolerable. Current Complaints Pain with urination, defecation, intercourse. History of Current Condition Pt is being referred to therapy for Pelvic Floor Tension. Pt reports severe abdominal pain with negative CT scans; within the past 6 months her pain has become so severe that she now has pain with urination and defecation and is not able to have intercourse with spouse. She states she was referred to Dr. Vaca for endometriosis and was found to be tight and swollen in her PF muscles. She is to start with pelvic floor PT before going into endometriosis treatments. Pt feels she has endo-belly. Prior Treatments and Tests None Future Testing and Treatments Planned Treatments for endometriosis. Possible hysterectomy. Developmental History Developmental History Abdominal pain as teen that worsened during her menstrual cycle. Found if she stopped using tampons she had less blood clotting and pain less. Over the past year the pain has increased, causing pain with urination, defecation and intercourse. She states she has not stopped intercourse, last time performed was 3 weeks ago. Pt has 3 children, ages 11 & 13, both vaginal deliveries, no tearing, hemorrhoids with 2nd child. 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 Treatment Goals Patient/Caregiver Goals Pt goal: 1) lessen the pain to be more comfortable stating tolerable pain would be only while on period, and 2) decrease pain with urination/ defection intermittent rated 3 -4/10. Prior Functional Status Baseline Function- ADL's Independent Baseline Function- Mobility Independent Baseline Function- Other Pain in abdominal and pelvic region is 4-5/10. Pain in rectal region constant , hemorrhoids. Current Functional Impairments (Reported) Functional Limitations- ADL's Constant pain with urination & defecation. Pain with intercourse. Intermittent R low back shooting pain that makes her partly drop to the floor. Constant lower abdomen/pelvic region pain rated 8-9/10. 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 Personal Factors Other Personal Factors That May Effect History of back pain, Therapy/Recovery fibromyalgia (2019), endometriosis, headaches/ migraines/dizziness due to deviated septum and bone spur on nasal L side of septum. PT-OP-C Subjective Start: 09/28/20 17:31 Freq: Status: Active Protocol: Document 11/30/20 08:23 LRN (Rec: 11/30/20 09:04 LRN [id number]) OP-PT Subjective Patient Comments Patient Comments Nasal surgery doing really well, finally cleared to come back to PT. States had sex, tried stretching with dilator before and foreplay, didn't hurt as much with sex, but still hurt. Lost bladder control the next day, took 2 weeks to regain control. Was only walking 15' daily. PT-OP-I Pelvic Floor Start: 09/28/20 17:31 Freq: Status: Active Protocol: Document 10/11/20 12:51 LRN (Rec: 10/11/20 13:33 LRN [id number]) Pelvic Floor Assessment Bowel Bowel Symptoms Constipation,Pain PT-OP-J Posture/Palpation/Skin Start: 09/28/20 17:31 Freq: Status: Active Protocol: Document 10/04/20 12:49 LRN (Rec: 10/04/20 13:40 LRN [id number]) Posture Evaluation Position Standing T-Spine Posture Flattened L-Spine Posture Increased Lordosis Scapula Posture (L) Elevated Knee Posture (L) Genu Valgus,(R) Genu Valgus Comments Posture Comments Dowagers Hump, L shoulder/ scapula/elevated PT-OP-K Range of Motion Start: 09/28/20 17:31 Freq: Status: Active Protocol: Document 10/04/20 12:49 LRN (Rec: 10/04/20 13:40 LRN [id number]) Lumbar Spine Range of Motion Lumbar Spine Active Percentage Testing Position Standing Flexion 80 Rotation Left 90 Rotation Right 90 Lateral Flexion Left 100 Lateral Flexion Right 100 Comments 15 deg's ext Hip Goniometric Range of Motion Hip Right Passive Internal Rotation 30 External Rotation 75 Left Passive Internal Rotation 45 External Rotation 80 PT-OP-M Strength Start: 09/28/20 17:31 Freq: Status: Active Protocol: Document 10/04/20 12:49 LRN (Rec: 10/04/20 13:40 LRN [id number]) Hip Strength Hip Manual Muscle Testing Right Flexion (L2) 5 Normal Abduction 5 Normal Adduction 5 Normal External Rotation 4+ Good+ Internal Rotation 4+ Good+ Left Flexion (L2) 5 Normal Abduction 5 Normal Adduction 5 Normal External Rotation 4+ Good+ Internal Rotation 4+ Good+ PT-OP-Q Treatments Start: 09/28/20 17:31 Freq: Status: Active Protocol: Document 11/30/20 08:23 LRN (Rec: 11/30/20 09:04 LRN [id number]) Therapeutic Exercises Supine Exercises Piriformis stretch Side bilateral Reps/Minutes 6' Rock Backs Supine Exercise Name Rock Backs Reps/Minutes 3' Hip Flexor stretch Supine Exercise Name Regis test position - Gentle stretch Side bilateral Reps/Minutes 5' Comments Gentle due to possible deep hernia in gustavo groin Happy Baby Pose Supine Exercise Name Happy Baby Pose (holding at knees) Reps/Minutes 3' Comments Extra time to find maximal tolerated stretch position Manual Therapy Treatment Soft Tissue Mobilization Lower abdomen Body Location Lower abdomen, primarily on R side Mobilization Type Myofascial Release Intensity/Depth Superficial Body Position Hooklying Hip ADD at Pube Body Location R Inferior Pub of hip AD tendon attachment Mobilization Type Trigger Point Release Intensity/Depth Moderate Body Position Hooklying Comments Also done in supine. R Iliopsoas Body Location R Iliopsoas Mobilization Type Trigger Point Release Intensity/Depth Superficial Body Position Hooklying Self-Care/Home Management Treatment Education Other Education Discussed use of deep breathing/imagery/relaxation PF/TrP treatment after intercourse. PT-OP-T Assessment and Plan Start: 09/28/20 17:31 Freq: Status: Active Protocol: Document 11/30/20 08:23 LRN (Rec: 11/30/20 09:04 LRN [id number]) Physical Therapy Assessment Goals Four Impairment Abdominal and occasional back pain (rated 8-9/10) Short Term Goal (STG) Improve core strength and educate pt in proper bowel care. (10/11/20: Pt educated in Bowel Program and Bowel Massage) STG Duration 11/12/20 (10/11/20: Met goal for bowel care). Cargo Operations Agent Goal (LTG) Pt will have decreased general abdominal pain and reduced onset of back pain when not on her period, no greater than 4 /10. LTG Duration 12/17/20 Three Impairment PF pain causing apprehension w /urination and defecation ( rated 8-9/10) Short Term Goal (STG) Pt will be educated in proper PF care. STG Duration 11/12/20 Correction Goal (LTG) Decrease pain with urination/ defection, intermittent, rated 3-4/10. (11/30/20: No pain reported with defectation) LTG Duration 12/17/20 (11/30/20: Met goal for defectation) Two Impairment Constant PF pain Short Term Goal (STG) Pt educated in self trigger point and downtraining treatment. (10/11/20: Pt educated in self trigger point treatment of PF using Small Dilator and at hip AD, suprapubic region & ASIS). STG Duration 10/22/20 (10/11/20: Partially met goal) Correction Goal (LTG) lessen the pain to be more comfortable (tolerable pain would be intermittent, only while on period). LTG Duration 12/17/20 One Impairment Pt lacks appropriate self care HEP. Short Term Goal (STG) Pt will be educated in a self stretch program of PF/hips. (10/11/20: Pt instructed in self stretch to PF with use of dilator) (11/01/20: Pt given hip stretches for HEP) STG Duration 10/29/20 (11/01/20: MET GOAL) Cargo Operations Agent Goal (LTG) Pt will be educate in a self care HEP for independent care. (10/25/20: Pt educated in self TrP treatment in pelvic region, use of breathing to have BM & initial education in S/CS for Ililopsoas & I/S for hip flexor stretching) (11/01/20: HEP issued: Hip ER /IR/Iliopsoas stretches, Happy Baby Posek CHild's Pose, Rock Back stretches) LTG Duration 12/17/20 (11/01/20: Progressing) Assessment Summary Assessment Pt appears to be having less pain with intercourse (is using dilator and foreplay prior to intercourse), but is now experiencing urinary incontinence day after intercourse, possibly due to PF ms tightness. After a few days she returns to prior level of leakage. The pt is no longer having complaints of posterior PF pain in rectal region with improved bowel function (improved food intake ). She has understanding of methods for relaxation of body areas, and is aware of tapes available for relaxation using imagery. release of r lower abdomen, but further needed. Very tight Iliopsoas. Physical Therapy Plan Frequency and Duration Frequency of Treatment 1x/Week Plan of Care Start Date 10/04/20 Plan of Care End Date 12/17/20 Next Visit Focus/Plan Next Note Type Treatment Note Next Visit Plan Educate pt in proper PF care. Educate (Goal #2): use of deep breathing/imagery/ relaxation PF/TrP treatment after intercourse to manage PF ms spasm. Discuss general inflammation due to sugar and sugary drinks. Start self care ANS quieting, relaxation training (diaphragm breathing, neuromuscular relaxation ( Glazer's or modified Glazer's protocol - Glazer's protocol 10 sec max contraction f/b 10 sec relaxation, 45-60x, 2x/day ). Manual therapy: STM posterior PF, abdomen for visceral mobs, hip AD's, ?LB, PF (due to tenderness above the symphysis pubis and in the pelvic floor externally on the left side, on the superficial transverse perineal muscle, perineal node , and in the posterior PF region externally). Modalities: IFES. Self care of ice/heat. Therapeutic Ex ( postural, flexibility, trunk stab). Education/functional training (SI belt, PF care, basic sexuality info of positioning, lubrication). Possible need for psychologist or sex therapist. Pt may need MD discussion on vaginal PH. Pt may need referral for L underbreast pain that shoots into posterior shoulder and down L UE.
--- NOTE | 2021-03-28 11:38 | PT.OPDS ---
Current Diagnoses Constipation, unspecified (11/30/20) Low back pain (11/30/20) Muscle weakness (generalized) (11/30/20) Other specified disorders of muscle (11/30/20) Pelvic and perineal pain (11/30/20) Lower abdominal pain, unspecified (11/30/20) Visit Care Team Role Provider Type JAVY Albert Family Provider Advanced Computer Aided Design Drafter Primary Care Provider Specialty: Family Practice Address: [address] [place] [address], [id number] Email: [email or web address] Petrona Vaca MD Attending Provider Physician Referring Provider Specialty: LEAD MECHANIC Address: [address] [place] [address], [id number] Email: Visit Number Visit Number 5 Discharge Summary PT-OP-B Current Condition Start: 09/28/20 17:31 Freq: Status: Active Protocol: Document 10/04/20 12:49 LRN (Rec: 10/04/20 13:40 LRN [id number]) Current Condition History of Current Condition Onset Date Past 6 months pelvic pain has become untolerable. Current Complaints Pain with urination, defecation, intercourse. History of Current Condition Pt is being referred to therapy for Pelvic Floor Tension. Pt reports severe abdominal pain with negative CT scans; within the past 6 months her pain has become so severe that she now has pain with urination and defecation and is not able to have intercourse with spouse. She states she was referred to Dr. Vaca for endometriosis and was found to be tight and swollen in her PF muscles. She is to start with pelvic floor PT before going into endometriosis treatments. Pt feels she has endo-belly. Prior Treatments and Tests None Future Testing and Treatments Planned Treatments for endometriosis. Possible hysterectomy. Developmental History Developmental History Abdominal pain as teen that worsened during her menstrual cycle. Found if she stopped using tampons she had less blood clotting and pain less. Over the past year the pain has increased, causing pain with urination, defecation and intercourse. She states she has not stopped intercourse, last time performed was 3 weeks ago. Pt has 3 children, ages 11 & 13, both vaginal deliveries, no tearing, hemorrhoids with 2nd child. 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 Treatment Goals Patient/Caregiver Goals Pt goal: 1) lessen the pain to be more comfortable stating tolerable pain would be only while on period, and 2) decrease pain with urination/ defection intermittent rated 3 -4/10. Prior Functional Status Baseline Function- ADL's Independent Baseline Function- Mobility Independent Baseline Function- Other Pain in abdominal and pelvic region is 4-5/10. Pain in rectal region constant , hemorrhoids. Current Functional Impairments (Reported) Functional Limitations- ADL's Constant pain with urination & defecation. Pain with intercourse. Intermittent R low back shooting pain that makes her partly drop to the floor. Constant lower abdomen/pelvic region pain rated 8-9/10. 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 Personal Factors Other Personal Factors That May Effect History of back pain, Therapy/Recovery fibromyalgia (2019), endometriosis, headaches/ migraines/dizziness due to deviated septum and bone spur on nasal L side of septum. PT-OP-C Subjective Start: 09/28/20 17:31 Freq: Status: Active Protocol: Document 11/30/20 08:23 LRN (Rec: 11/30/20 09:04 LRN [id number]) OP-PT Subjective Patient Comments Patient Comments Nasal surgery doing really well, finally cleared to come back to PT. States had sex, tried stretching with dilator before and foreplay, didn't hurt as much with sex, but still hurt. Lost bladder control the next day, took 2 weeks to regain control. Was only walking 15' daily. PT-OP-I Pelvic Floor Start: 09/28/20 17:31 Freq: Status: Active Protocol: Document 10/11/20 12:51 LRN (Rec: 10/11/20 13:33 LRN [id number]) Pelvic Floor Assessment Bowel Bowel Symptoms Constipation,Pain PT-OP-J Posture/Palpation/Skin Start: 09/28/20 17:31 Freq: Status: Active Protocol: Document 10/04/20 12:49 LRN (Rec: 10/04/20 13:40 LRN [id number]) Posture Evaluation Position Standing T-Spine Posture Flattened L-Spine Posture Increased Lordosis Scapula Posture (L) Elevated Knee Posture (L) Genu Valgus,(R) Genu Valgus Comments Posture Comments Dowagers Hump, L shoulder/ scapula/elevated PT-OP-K Range of Motion Start: 09/28/20 17:31 Freq: Status: Active Protocol: Document 10/04/20 12:49 LRN (Rec: 10/04/20 13:40 LRN [id number]) Lumbar Spine Range of Motion Lumbar Spine Active Percentage Testing Position Standing Flexion 80 Rotation Left 90 Rotation Right 90 Lateral Flexion Left 100 Lateral Flexion Right 100 Comments 15 deg's ext Hip Goniometric Range of Motion Hip Right Passive Internal Rotation 30 External Rotation 75 Left Passive Internal Rotation 45 External Rotation 80 PT-OP-M Strength Start: 09/28/20 17:31 Freq: Status: Active Protocol: Document 10/04/20 12:49 LRN (Rec: 10/04/20 13:40 LRN [id number]) Hip Strength Hip Manual Muscle Testing Right Flexion (L2) 5 Normal Abduction 5 Normal Adduction 5 Normal External Rotation 4+ Good+ Internal Rotation 4+ Good+ Left Flexion (L2) 5 Normal Abduction 5 Normal Adduction 5 Normal External Rotation 4+ Good+ Internal Rotation 4+ Good+ PT-OP-T Assessment and Plan Start: 09/28/20 17:31 Freq: Status: Active Protocol: Document 03/28/21 11:30 LRN (Rec: 03/28/21 11:37 LRN [id number]) Physical Therapy Assessment Goals Four Impairment Abdominal and occasional back pain (rated 8-9/10) Short Term Goal (STG) Improve core strength and educate pt in proper bowel care. (10/11/20: Pt educated in Bowel Program and Bowel Massage) STG Duration 11/12/20 (10/11/20: Met goal for bowel care). Snf Goal (LTG) Pt will have decreased general abdominal pain and reduced onset of back pain when not on her period, no greater than 4 /10. LTG Duration 12/17/20 Three Impairment PF pain causing apprehension w /urination and defecation ( rated 8-9/10) Short Term Goal (STG) Pt will be educated in proper PF care. STG Duration 11/12/20 Snf Goal (LTG) Decrease pain with urination/ defection, intermittent, rated 3-4/10. (11/30/20: No pain reported with defectation) LTG Duration 12/17/20 (11/30/20: Met goal for defectation) Two Impairment Constant PF pain Short Term Goal (STG) Pt educated in self trigger point and downtraining treatment. (10/11/20: Pt educated in self trigger point treatment of PF using Small Dilator and at hip AD, suprapubic region & ASIS). STG Duration 10/22/20 (10/11/20: Partially met goal) Snf Goal (LTG) lessen the pain to be more comfortable (tolerable pain would be intermittent, only while on period). LTG Duration 12/17/20 One Impairment Pt lacks appropriate self care HEP. Short Term Goal (STG) Pt will be educated in a self stretch program of PF/hips. (10/11/20: Pt instructed in self stretch to PF with use of dilator) (11/01/20: Pt given hip stretches for HEP) STG Duration 10/29/20 (11/01/20: MET GOAL) Snf Goal (LTG) Pt will be educate in a self care HEP for independent care. (10/25/20: Pt educated in self TrP treatment in pelvic region, use of breathing to have BM & initial education in S/CS for Ililopsoas & I/S for hip flexor stretching) (11/01/20: HEP issued: Hip ER /IR/Iliopsoas stretches, Happy Baby Posek CHild's Pose, Rock Back stretches) LTG Duration 12/17/20 (11/01/20: Progressing) Assessment Summary Assessment Pt was seen for her initial eval and 4 treatment sessions with the last session on . Pt was educated in proper bowel care and she was using a dilator for PF stretching; therefore she was experiencing less pain with intercourse. The pt cancelled 6 of her remaining appointments; therefore her rehabilitation program was not completed. Pt is being discharged from therapy due to lack of attendance and incompletion of plan of care program. Physical Therapy Plan Discharge Physical Therapy Discharge Reasons No Longer Attending PT Discharge Comments See assessment above. Thank you for your referral.
== END 2021-04-05 11:14 ==
LOC: PHYS 08:15
PROVIDERS: Family Provider Nurse Practitioner; PCP Nurse Practitioner; Referring Provider Obstetrics & Gynecology; Visit Provider Obstetrics & Gynecology
DX: M62.89 Other specified disorders of muscle (principal); M62.81 Muscle weakness (generalized); M54.5 Low back pain; K59.00 Constipation, unspecified; R10.30 Lower abdominal pain, unspecified; R10.2 Pelvic and perineal pain
CPT/HCPCS: 97110; 97140; 97162; 97535

== ENCOUNTER → 2021-03-21 11:55 | Outpatient (CLI) | payer OTHER, SELFPAY ==
--- NOTE | 2021-03-21 11:57 | DI.MG.S_ITS ---
UNILATERAL LEFT DIGITAL DIAGNOSTIC MAMMOGRAM 3D/2D: 03/21/2021 CLINICAL: Patient returns for a 6 month follow up of the left breast. Comparison is made to exams dated: 10/05/2020 mammogram, 04/06/2020 mammogram, 10/06/2019 ultrasound, and 10/06/2019 ultrasound - [facility]. The tissue of left breast is heterogeneously dense. This may lower the sensitivity of mammography. There are grouped fine calcifications in the left breast at 1 o'clock middle depth. These are more prominent and increased in number. No other significant masses or calcifications are seen in the breast. IMPRESSION: SUSPICIOUS OF MALIGNANCY The grouped fine calcifications in the left breast are suspicious of malignancy. Left stereotactic biopsy recommended. This exam was interpreted at Station ID: [id number]. NOTE: For mammograms, a report in lay terms will be sent to the patient. Approximately 15% of breast malignancies will not be visualized mammographically. In the management of a palpable breast mass, a negative mammogram must not discourage biopsy of a clinically suspicious lesion. Electronically Signed By: Bishnu Christianson M.D. jr/:03/21/2021 12:28:20 letter sent: Biopsy Required ACR BI-RADS Category 4: Suspicious abnormality [id number]
== END ==
PROVIDERS: Family Provider Nurse Practitioner; PCP Nurse Practitioner; Referring Provider Nurse Practitioner; Visit Provider Nurse Practitioner
DX: R92.8 Other abnormal and inconclusive findings on diagnostic imaging of breast (principal); R92.1 Mammographic calcification found on diagnostic imaging of breast
CPT/HCPCS: 77065; G0279

== ENCOUNTER → 2021-04-14 16:36 | Outpatient (CLI) | payer OTHER, SELFPAY ==
[2021-04-14 17:31] LABS: COVID19 -Nasal RAPID Negative (Negative)
== END ==
PROVIDERS: Family Provider Nurse Practitioner; PCP Nurse Practitioner; Visit Provider Specialist
DX: Z01.812 Encounter for preprocedural laboratory examination (principal); Z20.822 Contact with and (suspected) exposure to COVID-19
CPT/HCPCS: 87635

== ENCOUNTER 2021-04-15 08:04 | Day surgery (SDC) | payer OTHER, SELFPAY ==
[2021-04-13 14:37] VITALS: BMI 33.1
[2021-04-15] VITALS (16 sets, daily range): BP systolic 97–127; BP diastolic 55–87; PULSE 58–81; RESP 12–16; TEMP 36–37; O2SAT 96–100; BMI 33.5
--- NOTE | 2021-04-15 | PATH_ITS ---
[facility] Accession Number: [id number] . 01 Material submitted: . body - UTERUS, SUPRACERVICAL, AND RIGHT AND LEFT FALLOPIAN TUBES . 02 Diagnosis: Uterus And Bilateral Fallopian Tubes, Supracervical Hysterectomy And Bilateral Salpingectomy: Proliferative endometrium with no diagnostic abnormality. Myometrium with no diagnostic abnormality. Bilateral fimbriated fallopian tubes with simple benign peritubal cysts. No evidence of neoplasm. . . [facility] 04/19/2021 1125 Local . 02 Electronically signed: . Sigifredo Brock MD, PhD, Pathologist NPI- [id number] . 01 Gross description: . The specimen is received in formalin, labeled uterus, bilateral tubes, and consists of a 72 g, previously incised and disrupted supracervically resected uterus measuring 6.5 cm from superior fundus to lower uterine segment by 5.5 from cornu to cornu by 3.5 cm from anterior to posterior. The serosa is zapata-pink and smooth. Sectioning reveals a 3.5 x 1.0 cm endometrial cavity with a zapata-pink, granular endometrium measuring 0.3 cm in thickness. The myometrium is zapata-pink and trabeculated, measuring 1.8 cm in thickness. The attached fallopian tubes measure 5.9 cm in length by 0.7 cm in diameter and 6.4 cm in length by 1.1 cm in diameter. The serosa is zapata-pink and smooth with multiple paratubal cysts ranging from 0.1 cm to 0.5 cm. Sectioning reveals a zapata mucosa and a stellate lumen measuring 0.4 cm in diameter. Rail Project Engineer sections are submitted. . A1-A2: Lower uterine segment. A3-A5: Full-thickness cross-sections of endomyometrum. A6: Serosal slivers. A7-A8: Fallopian tubes, central cross-sections, and bisected fimbriae. ([id number]) /R 04/19/[address] [place] [address] . 02 Pathologist provided ICD-10: R10.2, N92.0 . 02 CPT . 822265 Performed at: 01 [facility] [address] [id number] MD Placido Oneil MD Phone: [phone] Performed at: 02 [facility] [id number] [place] [id number] MD Estella Lazo MD Phone: [phone]
[2021-04-15] MEDS: LACTATED RINGERS 1,000 ML 100 ML IV ×2 (08:44→12:00)
--- NOTE | 2021-04-15 09:14 | PM.PREOP ---
Pre-operative Note COVID-19 COVID-19 status: Negative Result date/Date tested (Pos, Neg/Pending): 04/14/21 Interval Note History & Physical reviewed/Exam performed by Physician: Yes Changes to H&P: No
[2021-04-15] MEDS: ACETAMINOPHEN IV 1,000 MG/100 ML VIAL 400 MG IV (09:17)
[2021-04-15] MEDS: CEFAZOLIN 1 GM VIAL 2 GM IV (09:50)
--- NOTE | 2021-04-15 10:11 | SUR.OPER ---
Lithotomy on padded OR bed. [place] Pad Positioner under torso. Head on pillow, arms padded and tucked at sides. Legs secured in padded yellow fins stirrups.
[2021-04-15] MEDS: EPINEPHrine 1 MG/ML 0.15 MG INJ (10:19)
[2021-04-15] MEDS: ROPIVACAINE 0.2% PF 2 MG/ML 10ML AMP 20 ML INJ (10:22)
--- NOTE | 2021-04-15 11:15 | P.OP_ITS ---
Operative Date/Time/Diagnoses Date of procedure: 04/15/21 Time of procedure: 11:15 Pre-op diagnosis: Dyspareunia, pelvic pain, menorrhagia, family history of endometriosis Post-op diagnosis: same Procedure & Clinicians Procedure: Laparoscopic supracervical hysterectomy with bilateral salpingectomies and cauterization of perineal endometriosis in the posterior cul-de-sac Same procedure as scheduled: Yes Indications: Patient with dyspareunia, menorrhagia, pelvic pain with family history of endometriosis who is requesting hysterectomy and treatment of endometriosis if found as well as removal of her fallopian tubes. Surgeon: Silvia Cabrera Industrial Designer: Giacomo Chauhan Click Yes if Unassisted: No Anesthesia Type: General Operative Notes Findings: Normal tubes, ovaries, uterus. Endometriosis on the perineum in the posterior cul-de-sac. Normal appendix, normal liver edge, normal bowel surface. No adhesions. No internal hernias. Closure Type: primary Specimen(s): other (Uterus without cervix, bilateral fallopian tubes) Estimated Blood Loss (mL): 10 Blood products transfused: none Procedure in detail: Patient is brought to the operating room where she underwent general anesthesia and placed in [facility]. She was prepped and draped in the usual sterile fashion. A check list was reviewed with the staff in the room prior to beginning of the case.The patient had pulsatile stockings in place and functional. 2 g of Ancef were in prior to beginning of the case.. A latex free Wang catheter was placed. A single-tooth tenaculum was placed on the anterior lip of the cervix and the cervix dilated to a #6 Hegar dilator. The uterine manipulator was placed through the cervix into the uterus with the balloon inflated with 3 mL of air. The area of the umbilical incision and the 5 mm right and left lower quadrant incisions were injected with Marcaine. An incision was made with scalpel. The verries needle was placed into the abdomen and confirmed in the appropriate place with withdrawal on a syringe and then free flow of fluid down through the needle. The abdomen was insufflated with CO2. The needle was removed and a 5 mm trocar placed without difficulty. There did not appear to be any damage is placement of the trocar. The right and left lower quadrant incisions were made with the scalpel and the trochars placed without damage to internal structures. The PK forceps were used to cauterize along the mesosalpinx followed by the round ligaments on both sides. Sequential bites were taken down the broad ligaments. The uterine arteries were cauterized. An incision was made above the level bladder pushing the bladder away from the cervix. The CARLOS loop was placed around the uterus and the uterus was amputated above the level of the bladder. Bleeding was controlled with the PK forceps. The PK forceps were used to cauterize in the endocervical canal. A supracervical incision was made and an 11 mm port placed. A 15 mm Endo Catch bag was placed in the abdomen. The uterus, tubes and ovaries were placed in the bag and brought up through the suprapubic port site. The Lio O was placed. The uterus was hand morselized. The abdomen was reinsufflated and adequate hemostasis was obtained with the PK forceps. 10 cc of ropivacaine were placed over the cervix. The trochars were removed and the CO2 allowed escape from the abdomen. The fascia layer of the suprapubic site was repaired with 0 Polysorb suture. Skin was closed with 4-0 Monocryl suture at the suprapubic site and the other 3 sites. The patient went to recovery room in good condition. Counts of instruments and sponges were correct. Dr. Chauhan was present throughout the case to assist with holding the camera, retracting, cauterizing and cutting the structures on the left side of the patient, as well as assisting with morselization of the uterus. Complications: none Post-operative Condition: stable Disposition: Acute Care (Patient would like to go home later today if she is doing well) Plan for aftercare: Routine post laparoscopic supracervical hysterectomy
[2021-04-15] MEDS: OXYCODONE IR 5 MG TABLET PO (11:28)
--- NOTE | 2021-04-15 14:06 | PC.NURSE ---
Patient arrived to floor via bed from PACU at 1155. C/O cramping pain 5/10. Tolerating liquids, denies N/V. Abd is soft, tender with movement, patient encouraged to splint. Sx sites x 4 are CDI. Patient up to restroom to void, reports no flatus at this time.
[2021-04-15] MEDS: KETOROLAC 30 MG/ML VIAL IV (16:04)
--- NOTE | 2021-04-15 17:49 | P.DS_ITS ---
History of Present Illness History of Present Illness Date Patient Seen: 04/15/21 Time Patient Seen: 17:49 Chief complaint: *OPB* Narrative: Patient is postoperative laparoscopic supracervical hysterectomy with bilateral salpingectomies and treatment of peritoneal endometriosis. Discharge Providers Provider Discharge Date: 04/15/21 Primary care physician: JAVY Albert Discharge provider: Silvia Cabrera MD Summary Hospital Course Discharge Diagnosis: Menorrhagia, dysmenorrhea, perineal endometriosis Hospital Course: Patient underwent a laparoscopic supracervical hysterectomy with bilateral salpingectomies and treatment of peritoneal endometriosis on 04/15/2021. Patient is ambulatory. She is urinating well. She is passing gas. She is tolerating regular diet. Pain is tolerable. Patient requests discharge home Status at Discharge Cognitive/behavioral status at discharge: oriented Functional status at discharge: independent ambulation Overall status at discharge: patient is progressing back to baseline Time Spent with Patient Time spent: Less than 30 minutes Exam Vital Signs (past 8 hours): - 04/15/21 11:07 04/15/21 11:11 04/15/21 11:17 Temperature 97.4 F L Pulse Rate 68 67 69 Respiratory Rate 12 15 16 Blood Pressure 97/55 L 102/56 L 120/86 Pulse Oximetry 99 100 100 04/15/21 11:21 04/15/21 11:27 04/15/21 11:32 Temperature 97.6 F Pulse Rate 68 68 59 L Respiratory Rate 15 16 16 Blood Pressure 97/63 110/64 102/65 Pulse Oximetry 100 99 100 04/15/21 11:37 04/15/21 11:41 04/15/21 11:47 Temperature Pulse Rate 62 58 L 61 Respiratory Rate 12 13 16 Blood Pressure 109/67 110/65 111/67 Pulse Oximetry 100 100 100 04/15/21 11:55 04/15/21 12:25 04/15/21 12:55 Temperature 97.6 F 97.0 F L 97.3 F L Pulse Rate 63 69 71 Respiratory Rate 14 14 15 Blood Pressure 109/73 104/80 117/75 Pulse Oximetry 100 100 97 04/15/21 14:55 04/15/21 15:43 04/15/21 16:17 Temperature 96.8 F L Pulse Rate 65 65 Respiratory Rate 14 16 Blood Pressure 106/65 127/76 Pulse Oximetry 97 96 100 Oxygen Delivery Method Room Air Oxygen Flow Rate 0 Narrative Exam Narrative: Abdomen is soft, minimally tender. Dressings are clean, dry, intact. No significant vaginal bleeding. Extremities without edema and nontender. [facility] Medical History (Updated 04/15/21 @ 11:09 by Silvia Cabrera MD) Acne Allergies Anemia Anorexia nervosa Anxiety Asthma with allergic rhinitis Breast pain, left Bulimia Chicken pox Chronic pain Dizziness Eating disorder in remission Erythematous papules of skin Family history of endometriosis in first degree relative Gluten enteropathy Heavy menstrual period Irregular menstrual cycle Irritable bowel syndrome Lymphadenopathy, axillary Mass of sternum Migraine headache with aura Migraines Palpitations Plantar warts Rectal prolapse Ulnar neuropathy Vision disorder Surgical History (Updated 04/15/21 @ 11:09 by Silvia Cabrera MD) Anesthesia History of elbow surgery (~2016) History of myringotomy (~1994) S/P T&A (status post tonsillectomy and adenoidectomy) (~1990) [place] teeth removed (~2010) Family History Grandfather Cancer Grandmother Pneumonia Social History (Updated 02/07/21 @ 15:30 by Debby Meyers RN) marital status: number of children: 2 household members: spouse and children Smoking Status: Former smoker alcohol intake: current Discharge Assessment & Plan Assessment and Plan Assessment: Status post laparoscopic supracervical hysterectomy with bilateral salpingectomies and cauterization of peritoneal endometriosis doing well Plan of Treatment: Discharge home. Patient has postop appointment scheduled in 1 week. Routine precautions reviewed with the patient. Discharge Plan Discharge Plan Patient Disposition: Home Discharge orders & Medications Discharge Orders: Discharge (Order); Ordered 04/15/21 Ordered By: Silvia Cabrera Prescriptions: Continued oxycodone 5 mg tablet 5 mg PO Q4H PRN (Reason: pain) Qty: 20 RF: 0 Zyrtec 10 mg capsule 10 mg PO DAILY RF: 0 albuterol sulfate 90 mcg/actuation Hfa Aerosol Inhaler 2 puff INHALATION QID PRN (Reason: Shortness Of Breath) RF: 0 Follow up/Referrals: Aleja Argueta ARNP [Primary Care Provider] - Silvia Cabrera MD [Physician] - As previously scheduled Diet/Activity/Treatments Diet: Regular Activity: Nothing in vagina for 1 week. No strenuous activity for 1 week but walking and minor activities are fine. Skin/Wound/Dressing Care Report to your healthcare provider any signs of infection, such as:: chills, fever, increased pain, unusual drainage and unusual redness Dressing: May remove Band-Aids tomorrow. Leave Steri-Strips in place. Can get wet just pat dry. Visit Report/Discharge Packet Instructions: DI for Hysterectomy, DI for Laparoscopy Discharge Data Primary Care Provider: Aleja Argueta Attending Provider: Silvia Cabrera
--- NOTE | 2021-04-15 21:41 | PC.NURSE ---
patient was eager to d/c home today. IV removed w/ out difficulty. VSS. Pt asked to walk out on own w/out aid of WC. Spouse gathered belongings and helped patient get dressed. Patient was escorted down to personal vehicle by aid.
== END 2021-04-15 17:45 | disposition home or self-care (01) ==
LOC: OR 08:04 → AC 08:05
PROVIDERS: Family Provider Nurse Practitioner; PCP Nurse Practitioner; Referring Provider Specialist; Visit Provider Specialist
PROC: 0UT94ZL Resection of Uterus, Supracervical, Percutaneous Endoscopic Approach (ICD-10-PCS; CPT 58542; principal; 2021-04-15 09:00)
DX: N80.3 Endometriosis of pelvic peritoneum (principal); N92.0 Excessive and frequent menstruation with regular cycle; N94.10 Unspecified dyspareunia; N83.8 Other noninflammatory disorders of ovary, fallopian tube and broad ligament
CPT/HCPCS: 58542; 81025; J0131; J0171; J0690; J1100; J1885; J2250; J2405; J2704; J2795; J3010

== ENCOUNTER → 2021-07-18 11:55 | Outpatient (CLI) | payer OTHER, SELFPAY ==
[2021-04-15 11:55] VITALS: BMI 33.5
[2021-07-18 12:40] LABS: Add Manual Diff / Slide Review NO; Basophils Absolute Auto 0 /uL (0-100); Basophils Percent Auto 0.5 % (0-2); Eosinophils Absolute Auto 100 /uL (0-450); Eosinophils Percent Auto 2.1 % (2-4); Hematocrit 44.1 % (36-46); Hemoglobin 14.7 g/dL (12.0-16.0); Lymphocytes Absolute Auto 1100 /uL (1100-4500); Lymphocytes Percent Auto 24.8 % (25-40); Mean Corpuscular HGB Conc 33.3 % (30-36); Mean Corpuscular Hemoglobin 30.9 PG (26-34); Mean Corpuscular Volume 92.8 fL (80-100); Monocytes Absolute Auto 400 /uL (0-900); Monocytes Percent Auto 9.4 % (3-14); Neutrophils Absolute Auto 2800 /uL (1500-7000); Neutrophils Percent Auto 63.2 % (50-75); Platelet Count 242 X10^3/uL (150-400); Red Blood Cell Count 4.75 X10^6/uL (4.0-5.2); Red Cell Distribution Width 15.2 % (11.6-14.8); White Blood Cell Count 4.4 X10^3/uL (4.5-11.0)
[2021-07-18 13:18] LABS: Alanine Aminotransferase 11 IU/L (<35); Albumin 4.5 g/dL (3.5-5.0); Albumin Globulin Ratio 1.4 (1.0-2.8); Alkaline Phosphatase 67 U/L (38-126); Aspartate Aminotransferase 18 IU/L (14-36); BUN Creatinine Ratio 16.9 (6-22); Bilirubin Total 0.6 mg/dL (0.2-1.3); Blood Urea Nitrogen 12 mg/dL (7-17); Calcium 9.4 mg/dL (8.4-10.2); Carbon Dioxide 30 mmol/L (22-32); Chloride 104 mmol/L (98-107); Cholesterol 169 mg/dL (140-199); Estimated Glomerular Filt Rate > 60.0 mL/min (>60); Globulin 3.2 g/dL (1.7-4.1); Glucose 101 mg/dL (70-100); HDL Cholesterol 70 mg/dL (40-60); HEMOLYSIS < 15 (0-50); LDL Cholesterol Calculated 89 mg/dL (<100); Potassium 4.7 mmol/L (3.4-5.1); Sodium 139 mmol/L (137-145); Total Protein 7.7 g/dL (6.3-8.2); Triglycerides 52 mg/dL (35-150)
[2021-07-18 13:46] LABS: TSH w/ Reflex to FT4 1.31 uIU/mL (0.47-4.68)
== END ==
PROVIDERS: Family Provider Nurse Practitioner; PCP Nurse Practitioner; Referring Provider Nurse Practitioner; Visit Provider Nurse Practitioner
DX: F32.9 Major depressive disorder, single episode, unspecified (principal); F41.9 Anxiety disorder, unspecified; R45.4 Irritability and anger; Z00.00 Encounter for general adult medical examination without abnormal findings
CPT/HCPCS: 36415; 80053; 80061; 84443; 85025

== ENCOUNTER → 2021-08-18 15:42 | Outpatient (CLI) | payer OTHER, SELFPAY ==
[2021-04-15 11:55] VITALS: BMI 33.5
--- NOTE | 2021-08-18 15:43 | DI.CT.S_ITS ---
PROCEDURE: CT HEAD/BRAIN WO CON INDICATIONS: INTRACTABLE MIGRAINES TECHNIQUE: Noncontrast 4.5 mm thick angled axial sections acquired from the foramen magnum to the vertex, with coronal and sagittal reformats. For radiation dose reduction, the following was used: automated exposure control, adjustment of mA and/or kV according to patient size. COMPARISON: [facility], CT, CT ENT SINUS SCREENING, 08/13/2020, 13:53. FINDINGS: Image quality: Excellent. CSF spaces: Basal cisterns are patent. No extra-axial fluid collections. Ventricles are normal in size and shape. Brain: No midline shift. No intracranial masses or hemorrhage. Deleon-white matter interface is normal. Skull and face: Calvarium and visualized facial bones are intact, without suspicious lesions. Sinuses: Visualized sinuses and mastoids are clear. IMPRESSION: 1. No acute intracranial process. Dictated by: Erlinda Barnett M.D. on 08/18/2021 at 21:20 Approved by: Erlinda Barnett M.D. on 08/18/2021 at 21:20
== END ==
PROVIDERS: Family Provider Nurse Practitioner; PCP Nurse Practitioner; Referring Provider Nurse Practitioner; Visit Provider Nurse Practitioner
DX: G43.919 Migraine, unspecified, intractable, without status migrainosus
CPT/HCPCS: 70450

== ENCOUNTER → 2021-09-23 16:20 | Outpatient (CLI) | payer OTHER, SELFPAY ==
[2021-04-15 11:55] VITALS: BMI 33.5
--- NOTE | 2021-09-23 16:22 | DI.RAD.S_ITS ---
PROCEDURE: XR MANDIBLE MIN 4V INDICATIONS: severe pain in Left TMJ/jaw TECHNIQUE: 4 views of the mandible were acquired. COMPARISON: None. FINDINGS: Bones: No fractures or dislocations. No suspicious bony lesions. Soft tissues: Visualized sinuses appear clear. No suspicious soft tissue densities. IMPRESSION: No significant abnormality. If the patient's pain persists, consider CT imaging. Dictated by: Otis Ca M.D. on 09/23/2021 at 17:00 Approved by: Otis Ca M.D. on 09/23/2021 at 17:01
[2021-09-23 17:03] LABS: Add Manual Diff / Slide Review NO; Basophils Absolute Auto 0 /uL (0-100); Basophils Percent Auto 0.6 % (0-2); Eosinophils Absolute Auto 100 /uL (0-450); Eosinophils Percent Auto 1.5 % (2-4); Hematocrit 40.5 % (36-46); Hemoglobin 13.9 g/dL (12.0-16.0); Lymphocytes Absolute Auto 1600 /uL (1100-4500); Lymphocytes Percent Auto 20.7 % (25-40); Mean Corpuscular HGB Conc 34.3 % (30-36); Mean Corpuscular Hemoglobin 31.7 PG (26-34); Mean Corpuscular Volume 92.4 fL (80-100); Monocytes Absolute Auto 500 /uL (0-900); Monocytes Percent Auto 6.9 % (3-14); Neutrophils Absolute Auto 5600 /uL (1500-7000); Neutrophils Percent Auto 70.3 % (50-75); Platelet Count 212 X10^3/uL (150-400); Red Blood Cell Count 4.38 X10^6/uL (4.0-5.2); Red Cell Distribution Width 13.9 % (11.6-14.8); White Blood Cell Count 7.9 X10^3/uL (4.5-11.0)
[2021-09-23 17:17] LABS: C-Reactive Protein Quant < 0.5 mg/dL (<1.0)
[2021-09-23 18:02] LABS: Erythrocyte Sedimentation Rate 3 MM/HR (0-20)
== END ==
PROVIDERS: Family Provider Nurse Practitioner; PCP Nurse Practitioner; Referring Provider Family Medicine; Visit Provider Family Medicine
DX: M26.629 Arthralgia of temporomandibular joint, unspecified side (principal)
CPT/HCPCS: 36415; 70110; 85025; 85651; 86140

== ENCOUNTER → 2021-10-04 12:42 | Outpatient (CLI) | payer OTHER, SELFPAY ==
[2021-04-15 11:55] VITALS: BMI 33.5
--- NOTE | 2021-10-04 12:43 | DI.US.S_ITS ---
PROCEDURE: US SOFT TISSUE HEAD AND NECK INDICATIONS: LEFT EAR, JAW, NECK PAIN TECHNIQUE: Real-time scanning was performed of the neck region of interest, with image documentation. Color Doppler was also utilized. COMPARISON: [facility], US, US SOFT TISSUE HEAD AND NECK, 10/06/2019, 13:02. [facility], CT, CT HEAD/BRAIN WO CON, 08/18/2021, 16:08. [facility], CR, XR MANDIBLE MIN 4V, 09/23/2021, 16:15. FINDINGS: Scanning is performed at the area of clinical concern involving the left parotid gland and the area of facial pain on the left. Likely subcentimeter lymph nodes can be seen within the left parotid gland. No suspicious parotid masses are seen. No significant abnormality can be seen within the region of left facial pain. IMPRESSION: No significant abnormality is seen. Likely subcentimeter lymph nodes can be seen within the left parotid gland. If it would be helpful for clinical management decision making in this patient with this given history, please consider a dedicated soft tissue protocol neck CT with IV contrast for further evaluation Dictated by: Harsha Figueroa M.D. on 10/04/2021 at 13:16 Approved by: Harsha Figueroa M.D. on 10/04/2021 at 13:18
== END ==
PROVIDERS: Family Provider Nurse Practitioner; PCP Nurse Practitioner; Referring Provider Family Medicine; Visit Provider Family Medicine
DX: M26.629 Arthralgia of temporomandibular joint, unspecified side (principal); S03.00XA Dislocation of jaw, unspecified side, initial encounter; R22.0 Localized swelling, mass and lump, head; R22.1 Localized swelling, mass and lump, neck
CPT/HCPCS: 76536

== ENCOUNTER → 2021-10-14 07:32 | Outpatient (CLI) | payer OTHER, SELFPAY ==
[2021-04-15 11:55] VITALS: BMI 33.5
--- NOTE | 2021-10-14 | DI.MG.S_ITS ---
BILATERAL DIGITAL SCREENING MAMMOGRAM 3D/2D WITH CAD: 10/14/2021 CLINICAL: Routine screening. Comparison is made to exams dated: 10/05/2020 mammogram, 03/21/2021 mammogram, 10/20/2019 ultrasound biopsy, 10/06/2019 ultrasound, 10/06/2019 ultrasound, and 10/06/2019 mammogram - [facility]. The tissue of both breasts is heterogeneously dense. This may lower the sensitivity of mammography. Current study was also evaluated with a Computer Aided Detection (CAD) system. There are grouped calcifications in the left breast at 1 o'clock posterior depth. These are increased in number of calcifications. There also are grouped calcifications in the left breast at 12 o'clock middle depth. These are increased in number of calcifications. No other significant masses, calcifications, or other findings are seen in either breast. IMPRESSION: INCOMPLETE: NEEDS ADDITIONAL IMAGING EVALUATION The grouped calcifications in the left breast at 1 o'clock posterior depth are indeterminate. Spot magnification views are recommended. The grouped calcifications in the left breast at 12 o'clock middle depth are indeterminate. Spot magnification views are recommended. This exam was interpreted at Station ID: [id number]. NOTE: For mammograms, a report in lay terms will be sent to the patient. Approximately 15% of breast malignancies will not be visualized mammographically. In the management of a palpable breast mass, a negative mammogram must not discourage biopsy of a clinically suspicious lesion. Electronically Signed By: Patrizia Guevara M.D. lk/:10/14/2021 10:16:39 letter sent: Additional Imaging Needed ACR BI-RADS Category 0: Incomplete 3340F
== END ==
PROVIDERS: Family Provider Nurse Practitioner; PCP Nurse Practitioner; Referring Provider Nurse Practitioner; Visit Provider Nurse Practitioner
DX: Z12.31 Encounter for screening mammogram for malignant neoplasm of breast (principal)
CPT/HCPCS: 77063; 77067

== ENCOUNTER → 2021-10-26 09:21 | Outpatient (CLI) | payer OTHER, SELFPAY ==
[2021-04-15 11:55] VITALS: BMI 33.5
--- NOTE | 2021-10-26 09:22 | DI.MG.S_ITS ---
UNILATERAL LEFT DIGITAL DIAGNOSTIC MAMMOGRAM 3D/2D WITH ADDITIONAL VIEWS: 10/26/2021 CLINICAL: Additional evaluation requested from prior study. Comparison is made to exams dated: 10/14/2021 mammogram, 03/21/2021 mammogram, and 10/05/2020 mammogram - [facility]. The tissue of left breast is heterogeneously dense. This may lower the sensitivity of mammography. There are grouped fine punctate round calcifications in the left breast at 1 o'clock posterior depth. These are not significantly changed. There also are grouped fine punctate calcifications in the left breast at 1 o'clock posterior depth. These are not significantly changed. There is a biopsy clip associated with the calcifications. No other significant masses or calcifications are seen in the breast. IMPRESSION: PROBABLY BENIGN The grouped fine punctate round calcifications in the left breast at 1 o'clock posterior depth are probably benign. The grouped fine punctate calcifications in the left breast at 1 o'clock posterior depth are probably benign. A follow-up left mammogram in 6 months is recommended to demonstrate stability. Findings and recommendations were conveyed to the patient at time of exam. This exam was interpreted at Station ID: [id number]. NOTE: For mammograms, a report in lay terms will be sent to the patient. Approximately 15% of breast malignancies will not be visualized mammographically. In the management of a palpable breast mass, a negative mammogram must not discourage biopsy of a clinically suspicious lesion. Electronically Signed By: Mariann escobar/:10/26/2021 10:31:39 letter sent: Followup Recommended ACR BI-RADS Category 3: Probably benign [id number]
== END ==
PROVIDERS: Family Provider Nurse Practitioner; PCP Nurse Practitioner; Referring Provider Nurse Practitioner; Visit Provider Nurse Practitioner
DX: R92.8 Other abnormal and inconclusive findings on diagnostic imaging of breast (principal); R92.1 Mammographic calcification found on diagnostic imaging of breast
CPT/HCPCS: 77065; G0279

== ENCOUNTER → 2022-04-20 15:20 | Outpatient (CLI) | payer OTHER, SELFPAY ==
[2021-04-15 11:55] VITALS: BMI 33.5
[2022-04-20 15:43] LABS: Appearance Urine UA CLEAR; Bilirubin Urine UA NEGATIVE (NEGATIVE); Color Urine UA YELLOW; Glucose Urine UA NEGATIVE (Negative); Ketones Urine UA NEGATIVE (NEGATIVE); Leukocyte Esterase Urine UA TRACE (NEGATIVE); Nitrite Urine UA NEGATIVE (Negative); Occult Blood Urine UA TRACE-INTACT (Negative); Protein Urine UA NEGATIVE (Negative); Urobilinogen Urine UA 0.2 E.U./dL (0.2)
[2022-04-20 15:53] LABS: Amorphous Sediment Urine 1+; Bacteria Urine Occasional (0-1); Culture Indicated Urine Specimen Cultured; RBC Urine 5-10/HPF (0-5/HPF); Squamous Epithelial Cell Urine 5-10 /HPF (0-5/HPF); WBC Urine 5-10/HPF (0-5/HPF)
[2022-04-20 20:42] LABS: Creatinine Urine Random 20.1 mg/dL
[2022-04-20 20:52] LABS: Microalbumin Urine Random < 0.6 mg/dL (0-1.6)
== END ==
PROVIDERS: Family Provider Nurse Practitioner; PCP Nurse Practitioner; Referring Provider Nurse Practitioner; Visit Provider Nurse Practitioner
DX: Z00.00 Encounter for general adult medical examination without abnormal findings (principal); R30.0 Dysuria
CPT/HCPCS: 81001; 82043; 82570; 87086

== ENCOUNTER → 2022-05-05 08:56 | Outpatient (CLI) | payer OTHER, SELFPAY ==
[2021-04-15 11:55] VITALS: BMI 33.5
--- NOTE | 2022-05-05 08:57 | DI.MG.S_ITS ---
UNILATERAL LEFT DIGITAL DIAGNOSTIC MAMMOGRAM 3D/2D: 05/05/2022 CLINICAL: Short term follow up for the left breast. Comparison is made to exams dated: 10/26/2021 mammogram, 10/14/2021 mammogram, 03/21/2021 mammogram, and 10/05/2020 mammogram - [facility]. The left breast is heterogeneously dense, which may obscure small masses (category c / 51-75% glandular tissue). There also are grouped fine punctate round calcifications in the left breast at 1 o'clock posterior depth. These are not significantly changed. A second grouped fine punctate calcifications in the left breast at 1 o'clock posterior depth. These are not significantly changed. There is a biopsy clip associated with the calcifications. No other significant masses or calcifications are seen in the breast. IMPRESSION: PROBABLY BENIGN The grouped fine punctate round calcifications in the left breast at 1 o'clock posterior depth are probably benign. A follow-up mammogram in 6 months is recommended. The grouped fine punctate calcifications in the left breast at 1 o'clock posterior depth are probably benign. A follow-up mammogram in 6 months is recommended. A follow-up left diagnostic mammogram in 6 months at the time of screening right is recommended to demonstrate stability. Based on the Tyrer Cuzick model (a risk assessment model) the patient's lifetime risk is 10.7% and her 10 year risk is 0.9%. According to the ACR, ACS, and NCCN guidelines, an annual breast MRI exam along with mammogram is recommended if the patient's lifetime risk is 20% or greater. This exam was interpreted at Station ID: [id number]. NOTE: For mammograms, a report in lay terms will be sent to the patient. Approximately 15% of breast malignancies will not be visualized mammographically. In the management of a palpable breast mass, a negative mammogram must not discourage biopsy of a clinically suspicious lesion. Electronically Signed By: Raj England M.D. acr/:05/05/2022 09:25:27 letter sent: Followup Recommended ACR BI-RADS Category 3: Probably benign [id number]
== END ==
PROVIDERS: Family Provider Nurse Practitioner; PCP Nurse Practitioner; Referring Provider Nurse Practitioner; Visit Provider Nurse Practitioner
DX: R92.8 Other abnormal and inconclusive findings on diagnostic imaging of breast (principal); R92.1 Mammographic calcification found on diagnostic imaging of breast
CPT/HCPCS: 77065; G0279

== ENCOUNTER → 2022-08-10 08:10 | Outpatient (CLI) | payer OTHER, SELFPAY ==
[2021-04-15 11:55] VITALS: BMI 33.5
[2022-08-10 11:11] LABS: Urine N gonorrhoeae NOT DETECTED
[2022-08-10 11:20] LABS: Urine Chlamydia NOT DETECTED
[2022-08-10 16:17] LABS: Hepatitis B Surface Antigen NEGATIVE s/c (NEGATIVE)
[2022-08-10 16:34] LABS: HIV 1 & 2 Ab/Ag 4th Gen Combo NEGATIVE (NEGATIVE); Hep C Virus Ab w/Reflex Quant NEGATIVE s/c (NEGATIVE)
[2022-08-11 08:10] LABS: HSV 2 IGG AB < 0.91 index (0.00-0.90)
[2022-08-12 03:23] LABS: RPR Screen Non Reactive (Non Reactive)
== END ==
PROVIDERS: Family Provider Nurse Practitioner; PCP Nurse Practitioner; Referring Provider Nurse Practitioner; Visit Provider Nurse Practitioner
DX: Z11.3 Encounter for screening for infections with a predominantly sexual mode of transmission (principal)
CPT/HCPCS: 36415; 86592; 86695; 86696; 86803; 87340; 87389; 87491; 87591

== ENCOUNTER → 2022-12-12 10:27 | Outpatient (CLI) | payer OTHER, SELFPAY ==
[2021-04-15 11:55] VITALS: BMI 33.5
== END ==
PROVIDERS: Family Provider Nurse Practitioner; PCP Nurse Practitioner; Visit Provider Nurse Practitioner
DX: N89.8 Other specified noninflammatory disorders of vagina (principal)
CPT/HCPCS: 87070; 87077; 87186; 87205

== ENCOUNTER → 2023-01-05 12:00 | Outpatient (CLI) | payer OTHER, SELFPAY ==
[2021-04-15 11:55] VITALS: BMI 33.5
--- NOTE | 2023-01-05 | DI.MG.S_ITS ---
BILATERAL DIGITAL DIAGNOSTIC MAMMOGRAM 3D/2D: 01/05/2023 CLINICAL: Short term follow up of the left breast, due for bilateral imaging. Comparison is made to exams dated: 05/05/2022 mammogram, 10/26/2021 mammogram, 10/14/2021 mammogram, 10/05/2020 mammogram, and 03/21/2021 mammogram - [facility]. Both breasts are heterogeneously dense, which may obscure small masses (category c / 51-75% glandular tissue). There are grouped fine punctate round calcifications in the left breast at 1 o'clock posterior depth. These are not significantly changed. Additionally, there is a second group of fine punctate calcifications in the left breast at 1 o'clock posterior depth. These are not significantly changed. There is a biopsy clip associated with the calcifications. No other significant masses, calcifications, or other findings are seen in either breast. IMPRESSION: PROBABLY BENIGN The grouped fine punctate round calcifications in the left breast at 1 o'clock posterior depth are probably benign. The grouped fine punctate calcifications in the left breast at 1 o'clock posterior depth are probably benign. A follow-up left mammogram in 6 months is recommended to demonstrate stability. Based on the Tyrer Cuzick model (a risk assessment model) the patient's lifetime risk is 10.7% and her 10 year risk is 0.9%. According to the ACR, ACS, and NCCN guidelines, an annual breast MRI exam along with mammogram is recommended if the patient's lifetime risk is 20% or greater. This exam was interpreted at Station ID: [id number]. NOTE: For mammograms, a report in lay terms will be sent to the patient. Approximately 15% of breast malignancies will not be visualized mammographically. In the management of a palpable breast mass, a negative mammogram must not discourage biopsy of a clinically suspicious lesion. Electronically Signed By: Gilson Hearn M.D. ar/:01/05/2023 13:07:42 letter sent: Followup Recommended ACR BI-RADS Category 3: Probably benign 3343F
== END ==
PROVIDERS: Family Provider Nurse Practitioner; PCP Nurse Practitioner; Referring Provider Nurse Practitioner; Visit Provider Nurse Practitioner
DX: R92.1 Mammographic calcification found on diagnostic imaging of breast (principal)
CPT/HCPCS: 77065; 77066; G0279

== ENCOUNTER → 2023-02-06 11:46 | Outpatient (CLI) | payer OTHER, SELFPAY ==
[2021-04-15 11:55] VITALS: BMI 33.5
[2023-02-06 12:31] LABS: Appearance Urine UA SL CLOUDY; Color Urine UA ORANGE
[2023-02-06 13:09] LABS: Bacteria Urine Few (2-10); Culture Indicated Urine Specimen Cultured; RBC Urine 0-1/HPF (0-5/HPF); Squamous Epithelial Cell Urine 0-1 /HPF (0-5/HPF); WBC Urine 1-5/HPF (0-5/HPF)
== END ==
PROVIDERS: Family Medicine; Family Provider Nurse Practitioner; PCP Nurse Practitioner; Referring Provider Nurse Practitioner; Visit Provider Nurse Practitioner
DX: R30.9 Painful micturition, unspecified (principal); R39.15 Urgency of urination
CPT/HCPCS: 81001; 87077; 87086; 87186

== ENCOUNTER → 2023-02-22 16:20 | Outpatient (CLI) | payer OTHER, SELFPAY ==
[2021-04-15 11:55] VITALS: BMI 33.5
[2023-02-21 10:55] VITALS: BMI 33.5
--- NOTE | 2023-02-22 16:21 | DI.US.S_ITS ---
PROCEDURE: US PELVIC COMPLETE INDICATIONS: VAGINAL PROLAPSE TECHNIQUE: Real-time scanning was performed of the pelvic organs, with image documentation. Additional endovaginal scanning was necessary due to incomplete visualization of the adnexal and endometrial structures by transabdominal scanning. COMPARISON: [facility], , PELVIC COMPLETE, 09/02/2020, 10:19. FINDINGS: Uterus: Surgically absent. Ovaries: Right ovary measures 3.5 x 2.6 x 2.4 cm, volume of 11 cc. There is less than 12 ovarian follicles. No mass or significant cyst. Blood flow is present within the right ovary. The left ovary is not seen. Other: No pathologic free abdominal or pelvic fluid. IMPRESSION: Uterus is surgically absent. Normal sonographic appearance of the right ovary. Left ovary is not seen. We strive to produce accurate, complete, and clear reports of imaging services. To assist us in improving patient care, this report was composed using standard report templates and voice recognition software. Therefore, it may contain abnormal punctuation, insertions and/or omissions. Occasional wrong-word or sound-alike substitutions may occur. Though we review the report and make efforts to correct it, we do recommend that the report be read carefully in proper context to recognize any text inaccuracies. Dictated by: Ruben Gray M.D. on 02/23/2023 at 9:19 Approved by: Ruben Gray M.D. on 02/23/2023 at 9:22
== END ==
PROVIDERS: Family Provider Nurse Practitioner; PCP Nurse Practitioner; Referring Provider Pediatrics; Visit Provider Pediatrics
DX: N81.10 Cystocele, unspecified (principal); R32 Unspecified urinary incontinence; Z87.42 Personal history of other diseases of the female genital tract; Z90.710 Acquired absence of both cervix and uterus
CPT/HCPCS: 76830; 76856

== ENCOUNTER → 2023-07-24 09:22 | Outpatient (CLI) | payer OTHER, SELFPAY ==
[2023-04-16 13:06] VITALS: BMI 33.5
--- NOTE | 2023-07-24 09:23 | DI.MG.S_ITS ---
UNILATERAL LEFT DIGITAL DIAGNOSTIC MAMMOGRAM 3D/2D: 07/24/2023 CLINICAL: Short term follow up. Comparison is made to exams dated: 01/05/2023 mammogram, 05/05/2022 mammogram, 10/26/2021 mammogram, 10/14/2021 mammogram - [facility], 04/04/2021 stereotactic biopsy - [facility], and 03/21/2021 mammogram - [facility]. The left breast is heterogeneously dense, which may obscure small masses (category c / 51-75% glandular tissue). There are grouped fine punctate round calcifications in the left breast at 1 o'clock posterior depth. These are not significantly changed. Additionally, there are grouped fine punctate calcifications in the left breast at 12 o'clock posterior depth. These are not significantly changed. There is a biopsy clip associated with the calcifications. No other significant masses or calcifications are seen in the breast. IMPRESSION: INCOMPLETE: NEEDS ADDITIONAL IMAGING EVALUATION The grouped fine punctate round calcifications in the left breast at 1 o'clock posterior depth are probably benign. The grouped fine punctate calcifications in the left breast at 12 o'clock posterior depth are probably benign. A follow-up diagnostic mammogram in 6 months is recommended to demonstrate stability. Based on the Tyrer Cuzick model (a risk assessment model) the patient's lifetime risk is 10.6% and her 10 year risk is 1.0%. According to the ACR, ACS, and NCCN guidelines, an annual breast MRI exam along with mammogram is recommended if the patient's lifetime risk is 20% or greater. This exam was interpreted at Station ID: [id number]. NOTE: For mammograms, a report in lay terms will be sent to the patient. Approximately 15% of breast malignancies will not be visualized mammographically. In the management of a palpable breast mass, a negative mammogram must not discourage biopsy of a clinically suspicious lesion. Electronically Signed By: Gilson Hearn M.D. ar/:07/24/2023 11:39:16 letter sent: Followup Recommended ACR BI-RADS Category 0: Incomplete [id number]
== END ==
LOC: MAMMO 09:22
PROVIDERS: Family Provider Nurse Practitioner; PCP Nurse Practitioner; Referring Provider Nurse Practitioner; Visit Provider Nurse Practitioner
DX: R92.1 Mammographic calcification found on diagnostic imaging of breast (principal); R92.2 Inconclusive mammogram; R92.332 Mammographic heterogeneous density, left breast
CPT/HCPCS: 77065; G0279

== ENCOUNTER → 2023-08-22 09:31 | Outpatient (CLI) | payer OTHER, SELFPAY ==
[2023-04-16 13:06] VITALS: BMI 33.5
[2023-08-22 10:22] LABS: Hematocrit 40.6 % (36-46); Hemoglobin 13.7 g/dL (12.0-16.0); Mean Corpuscular HGB Conc 33.8 % (30-36); Mean Corpuscular Hemoglobin 31.1 PG (26-34); Mean Corpuscular Volume 92.1 fL (80-100); Platelet Count 235 X10^3/uL (150-400); Red Blood Cell Count 4.41 X10^6/uL (4.0-5.2); Red Cell Distribution Width 13.5 % (11.6-14.8); White Blood Cell Count 3.7 X10^3/uL (4.5-11.0)
[2023-08-22 10:43] LABS: Alanine Aminotransferase 12 IU/L (<35); Albumin 4.4 g/dL (3.5-5.0); Albumin Globulin Ratio 1.4 (1.0-2.8); Alkaline Phosphatase 46 U/L (38-126); Aspartate Aminotransferase 19 IU/L (14-36); BUN Creatinine Ratio 19.7 (6-22); Bilirubin Total 1.2 mg/dL (0.2-1.3); Blood Urea Nitrogen 13 mg/dL (7-17); Calcium 8.7 mg/dL (8.4-10.2); Carbon Dioxide 27 mmol/L (22-32); Chloride 108 mmol/L (98-107); Cholesterol 172 mg/dL (140-199); Estimated Glomerular Filt Rate > 60 mL/min (>60); Globulin 3.2 g/dL (1.7-4.1); Glucose 90 mg/dL (70-100); HDL Cholesterol 54 mg/dL (40-60); HEMOLYSIS < 15 (0-50); LDL Cholesterol Calculated 111 mg/dL (<100); Potassium 4.4 mmol/L (3.4-5.1); Sodium 139 mmol/L (137-145); Total Protein 7.6 g/dL (6.3-8.2); Triglycerides 37 mg/dL (35-150)
[2023-08-22 10:47] LABS: Follicle Stimulating Hormone 5.21 mIU/mL
[2023-08-22 10:51] LABS: Free T3, Triiodothyronine Free 3.49 pg/mL (2.77-5.27); Free T4, Direct Thyroxine 1.11 ng/dL (0.78-2.19)
[2023-08-22 11:01] LABS: Creatinine Urine Random 119.5 mg/dL
[2023-08-22 11:05] LABS: Thyroid Stimulating Hormone 1.34 uIU/mL (0.47-4.68)
[2023-08-22 11:07] LABS: Microalbumin Urine Random < 0.6 mg/dL (0-1.6)
== END ==
PROVIDERS: Family Provider Nurse Practitioner; PCP Nurse Practitioner; Referring Provider Nurse Practitioner; Visit Provider Nurse Practitioner
DX: Z00.00 Encounter for general adult medical examination without abnormal findings (principal); R41.89 Other symptoms and signs involving cognitive functions and awareness; R23.2 Flushing; F41.9 Anxiety disorder, unspecified
CPT/HCPCS: 36415; 80053; 80061; 82043; 82570; 83001; 84439; 84443; 84481; 85027

== ENCOUNTER → 2023-09-05 12:33 | Outpatient (CLI) | payer OTHER, SELFPAY ==
[2023-09-04 10:48] VITALS: BMI 33.5
== END ==
PROVIDERS: Family Provider Nurse Practitioner; PCP Nurse Practitioner; Visit Provider Nurse Practitioner Family
DX: R30.0 Dysuria (principal)
CPT/HCPCS: 87086

== ENCOUNTER 2023-10-02 07:30 | Outpatient (RCR) | payer OTHER, SELFPAY ==
[2023-04-16 13:06] VITALS: BMI 33.5
--- NOTE | 2023-07-10 18:57 | PT.OIE ---
Current Diagnoses Cystocele, unspecified (07/10/23) Unspecified urinary incontinence (07/10/23) Past Medical History (Last Updated 07/05/23 @ 13:50 by JAVY Albert) Abnormal mammogram of left breast Acne Allergies Anemia Anorexia nervosa Anxiety Asthma with allergic rhinitis Body dysmorphic disorder Breast pain, left Bulimia Celiac disease Chicken pox Chronic constipation Chronic pain Dizziness Eating disorder in remission Erythematous papules of skin Family history of endometriosis in first degree relative Gluten enteropathy Heavy menstrual period History of anorexia nervosa History of bulimia History of endometriosis Intractable migraine Irregular menstrual cycle Irritable bowel syndrome Lymphadenopathy, axillary Mass of sternum Migraine headache with aura Migraines Palpitations Plantar warts Rectal prolapse 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 Vaginal prolapse Vision disorder Past Surgical History (Last Reviewed 07/05/23 @ 13:49 by JAVY Albert) Anesthesia History of elbow surgery (~2016) History of myringotomy (~1994) S/P T&A (status post tonsillectomy and adenoidectomy) (~1990) Cameron teeth removed (~2010) Visit Care Team Role Provider Type JAVY Albert Family Provider Advanced Memory Care Director Primary Care Provider Specialty: Family Practice Address: [address] [place] [address] Email: [email or web address] Silvia Cabrera MD Attending Provider Physician Referring Provider Specialty: MACHINE FEED OPERATOR Address: [address] [place] [address], [facility] Email: [email or web address] Physical Therapy Initial Evaluation PT-OP-A Visit Information Start: 07/05/23 16:17 Freq: Status: Active Protocol: Document 07/10/23 07:32 LRN (Rec: 07/10/23 08:20 LRN [id number]) Out-Patient Physical Therapy Visit Information Visit Information Visit Type Initial Evaluation Visit Start Time 07:32 Visit Stop Time 08:18 Total Visit Minutes 46 Visit Number 07/12 Evaluation Information Evaluation Date 07/10/23 Precautions Precautions Latex Tape Allergy, L hip pops out with hip ER, Depression, Celiac Disease, Endometriosis, hysterectomy ( retained overaries), Fibromyalgia, Dizziness that failed vestibular treatment, 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 PT-OP-B Current Condition Start: 07/05/23 16:17 Freq: Status: Active Protocol: Document 07/10/23 07:32 LRN (Rec: 07/10/23 08:20 LRN [id number]) Current Condition History of Current Condition Onset Date Urinary incontinence-2006, Bladder prolapse-2022 Current Complaints Urinary incontinence and Vaginal Prolapse felt History of Current Condition Urinary incontinence (2006) was manageable until last year diagnosed with Bladder Prolpase (02/2023). Pt reports history of celiac disease and that GI issues have worsened as late. She is now having to push her bladder back up. 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 The pt is sent to PT before doing anything surgical. Now having constant heaviness in pelvic floor, previously it was intermittent. In the past 4-5 yrs has been having watery fecal leakage, possibly from hemorrhoids. Prior Treatments and Tests PT for GI issues ~ 4 ys ago ( records indicate PT in 11/29/20 ). Developmental History Developmental History 2 births/3 pregnancies, vaginal births (2006, 2008). first took a long time ( 36 hrs) but no tearing. Celiac Disease diagnosed 2012 but has had it since childhood (severe abdominal cramping) and history of endometriosis, as found when did hystcyndie in 2021. Treatment Goals Patient/Caregiver Goals Pt goals is: -to strengthen the PF to reduce heaviness feeling and regain control of bladder. -wear menstrual maxi-pads if having a bad day, and light pads daily. Personal Factors Other Personal Factors That May Effect L hip dysfunction (limited in Therapy/Recovery ER due to hip jt instability), Celiac disease, Endometriosis , Fibromyalgia, Depression, Dizziness intermittent with walking, sitting up too fast or laying down on R side. PT-OP-C Subjective Start: 07/05/23 16:17 Freq: Status: Active Protocol: Document 07/10/23 07:32 LRN (Rec: 07/10/23 08:20 LRN [id number]) Patient Questionnaires Pelvic Pain and Urgency/Frequency Patient Symptom Scale Pelvic Pain Score 19 PT-OP-I Pelvic Floor Start: 07/05/23 16:17 Freq: Status: Active Protocol: Document 07/10/23 07:32 LRN (Rec: 07/10/23 08:20 LRN [id number]) Pelvic Floor Assessment Bowel Bowel Symptoms Constipation,Fecal Leakage, Pain Other Bowel Symptoms Pain in anal and perineal pain . Pelvic Clock Pelvic Clock 12-3 Tenderness Pelvic Clock 3-6 Tenderness Pelvic Clock 6-9 Tenderness Pelvic Clock 9-12 Tenderness Pelvic Clock Other Swollen Prolapse Cystocele Grade 2 Perineal Descent Resting Absent Bearing Present Contraction Ability Manual Muscle Testing Left 2 Manual Muscle Testing Right 3 Manual Muscle Testing Anterior 3 Manual Muscle Testing Posterior 2 Muscle Endurance (Seconds) 3 Number of Quick Contractions In 10 5 Seconds Comments Pelvic Floor Comments Minimal PF contraction visible externally (very minimal clitoral nod). Pt uses gluteals and mildly abdominal ms to get a PF contraction. PT-OP-J Posture/Palpation/Skin Start: 07/05/23 16:17 Freq: Status: Active Protocol: Document 07/10/23 07:32 LRN (Rec: 07/10/23 08:20 LRN [id number]) Posture Evaluation Position Standing Head/C-Spine Posture Side Bent Left,Forward Head L-Spine Posture Decreased Lordosis Shoulder Posture (L) Elevated Scapula Posture (L) Retracted Arm Posture (L) Neutral,(R) Neutral Pelvis Posture Neutral,(L) Iliac Crest Superior,(L) PSIS Inferior Knee Posture (L) Genu Valgus,(R) Genu Valgus Foot Arch (L) No Arch,(R) No Arch Comments Posture Comments Holds L hip in neutral ( purposeful IR) because L femur pops out if not keeping it in neutral, L PSIS is low/ L ASIS is high (L innominate posteriorly rotated). PT-OP-K Range of Motion Start: 07/05/23 16:17 Freq: Status: Active Protocol: Document 07/10/23 07:32 LRN (Rec: 07/10/23 08:20 LRN [id number]) Lumbar Spine Range of Motion Lumbar Spine Active Degrees Testing Position Standing Flexion 70 Extension 15 Rotation Left 45 Rotation Right 45 Lateral Flexion Left 20 Lateral Flexion Right 18 Hip Goniometric Range of Motion Hip Right Passive Testing Position Supine Internal Rotation 35 External Rotation 70 Left Passive Testing Position Supine Internal Rotation 45 External Rotation 30 Comments Hip started to come out of joint at ~30 deg's active ROM. PT-OP-M Strength Start: 07/05/23 16:17 Freq: Status: Active Protocol: Document 07/10/23 07:32 LRN (Rec: 07/10/23 08:20 LRN [id number]) Hip Strength Hip Manual Muscle Testing Right Comments Strength is 5/5 Left Comments Strength is 5/5 PT-OP-Q Treatments Start: 07/05/23 16:17 Freq: Status: Active Protocol: Document 07/10/23 07:32 LRN (Rec: 07/10/23 08:20 LRN [id number]) Self-Care/Home Management Treatment Education Other Education Discussed results of evaluation, goals, and plan of care (POC). Pt agreeable to goals and POC. Discussed and educated pt in specifics for completion of in use of Bladder Diary and I/S in tracking for 1 week. Discussed use of 2 different diaries for tracking of bladder for next 7 days. Activities Self-Care/Home Management Activities Issued & reviewed HEP: Ilya ex's and discussed exercise to work on relaxation of PF after contraction of Quick Flicks, Long Holds. PT-OP-T Assessment and Plan Start: 07/05/23 16:17 Freq: Status: Active Protocol: Document 07/10/23 07:32 LRN (Rec: 07/10/23 08:20 LRN [id number]) Physical Therapy Assessment Rehab Potential Rehabilitation Potential Excellent Evaluation Complexity Number of Personal Factors/Comorbidities 3 or More Number of Body Systems Impaired 4 or More Clinical Presentation at Evaluation Evolving Impairments Impairments Activity Tolerance,Pain, Posture,ROM,Soft Tissue Mobility,Transfers Other Impairments Urinary and fecal incontinence . Goals Four Impairment Constipation Short Term Goal (STG) Pt will be educated in norms for fluid intake for hydration and bowel care. STG Duration 4 wks-08/07/23 Penitentiary Goal (LTG) Pt will be independent with BM massage to promote daily BM's . LTG Duration 12 wks-10/05/23 Three Impairment Pt uses a daily light pad and menstrual maxi-pad on bad days . Short Term Goal (STG) Pt will be educated in vulvar and genital care and difference between menstrual and urinary incontinence pads. STG Duration 4 wks-08/07/23 Smt Technician Goal (LTG) PF stretching to improve ability to contract posterior and anterior PF to reduce urinary and fecal leakage. LTG Duration 12 wks-10/05/23 Two Impairment Cystocele grade 3 in supine Short Term Goal (STG) Pt will be educated in proper transfers to lessen core abdominal pressure and proper posture (sit/stand). STG Duration 4 wks-08/07/23 Penitentiary Goal (LTG) -to strengthen the PF to reduce heaviness feeling and regain control of bladder. LTG Duration 12 wks-10/05/23 One Impairment Pt lacks an independent self care HEP. Short Term Goal (STG) Pt will be educated in self abdominal STM and PF stretching with wand. STG Duration 4 wks-08/07/23 Penitentiary Goal (LTG) Pt will be independent in a self care HEP for PF/trunk and hips (except L hip ER) stretching and strengthening ex's. LTG Duration 12 wks-10/05/23 Assessment Summary Assessment Pt is a 38 yo female who presents with soft tissue dysfunction of her PF with bladder prolapse grade 3. She appears to have a minimal bulge from rectal prolapse, but with her PF tissues swollen it is difficult to assess severity of her prolapse. She has a feeling of swelling in the PF and is tight and tender all around her PF clock. 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 It is expected that therapy may be prolonged due to the pt's long list of comorbidities, but the pt will benefit from skilled physical therapy to work towards achieving the above stated goals. Physical Therapy Plan Frequency and Duration Frequency of Treatment 1x/Week Duration of treatment (weeks) 12 Plan of Care Start Date 07/10/23 Plan of Care End Date 10/05/23 Therapeutic Interventions Therapeutic Interventions Home Exercise Program,Joint Mobilizations,Manual Therapy, Neuromuscular Re-education, Self-Care/Home Management,Soft Tissue Mobilization,Taping, Therapeutic Activities, Therapeutic Exercises Modalities Biofeedback,Cold Pack/Ice Massage,Electric Stimulation Next Visit Focus/Plan Next Note Type Treatment Note Next Visit Plan Latex allergy. Next: Review bladder diary, pt education in norms for fluid intake for hydration, Correct L innominate posterior rotation. educate/discuss stool types, foods, Bowel massage, proper sit to stand, vulvar/genital care and moving in bed using breathwork and body mechanics for reduction of intra- abdominal pressure with transfers and body mechanics; proper deep breathing. Pt education in bladder retraining with urge deference technique, Relaxation of PF after, Kegel without use of substitute muscles. Core/hip stabilization strengthening, improve hip mobility (except L hip ER), improve abdominal soft tissue (bladder/urachus) mobility. POC: Pt education, Manual therapy. ? Biofeedback with vaginal sensor. Therapeutic Exercises, Therapeutic Activities, Neuromuscular Reeducation.
--- NOTE | 2023-07-10 18:57 | PT.OPPOC ---
Physical, Occupational & Speech Therapy At [facility] Current Diagnoses Cystocele, unspecified (07/10/23) Unspecified urinary incontinence (07/10/23) Visit Care Team Role Provider Type JAVY Albert Family Provider Advanced Car Servicer Primary Care Provider Specialty: Family Practice Address: [address] [place] [address], [id number] Email: [email or web address] Silvia Cabrera MD Attending Provider Physician Referring Provider Specialty: PATHOLOGY TEACHER Address: [address] [place] [address], [id number] Email: [email or web address] Plan Of Care PT-OP-T Assessment and Plan Start: 07/05/23 16:17 Freq: Status: Active Protocol: Document 07/10/23 07:32 LRN (Rec: 07/10/23 08:20 LRN [id number]) Physical Therapy Assessment Rehab Potential Rehabilitation Potential Excellent Evaluation Complexity Number of Personal Factors/Comorbidities 3 or More Number of Body Systems Impaired 4 or More Clinical Presentation at Evaluation Evolving Impairments Impairments Activity Tolerance,Pain, Posture,ROM,Soft Tissue Mobility,Transfers Other Impairments Urinary and fecal incontinence . Goals Four Impairment Constipation Short Term Goal (STG) Pt will be educated in norms for fluid intake for hydration and bowel care. STG Duration 4 wks-08/07/23 Fleet Sales Manager Goal (LTG) Pt will be independent with BM massage to promote daily BM's . LTG Duration 12 wks-10/05/23 Three Impairment Pt uses a daily light pad and menstrual maxi-pad on bad days . Short Term Goal (STG) Pt will be educated in vulvar and genital care and difference between menstrual and urinary incontinence pads. STG Duration 4 wks-08/07/23 Fleet Sales Manager Goal (LTG) PF stretching to improve ability to contract posterior and anterior PF to reduce urinary and fecal leakage. LTG Duration 12 wks-10/05/23 Two Impairment Cystocele grade 3 in supine Short Term Goal (STG) Pt will be educated in proper transfers to lessen core abdominal pressure and proper posture (sit/stand). STG Duration 4 wks-08/07/23 Fleet Sales Manager Goal (LTG) -to strengthen the PF to reduce heaviness feeling and regain control of bladder. LTG Duration 12 wks-10/05/23 One Impairment Pt lacks an independent self care HEP. Short Term Goal (STG) Pt will be educated in self abdominal STM and PF stretching with wand. STG Duration 4 wks-08/07/23 Fleet Sales Manager Goal (LTG) Pt will be independent in a self care HEP for PF/trunk and hips (except L hip ER) stretching and strengthening ex's. LTG Duration 12 wks-10/05/23 Assessment Summary Assessment Pt is a 38 yo female who presents with soft tissue dysfunction of her PF with bladder prolapse grade 3. She appears to have a minimal bulge from rectal prolapse, but with her PF tissues swollen it is difficult to assess severity of her prolapse. She has a feeling of swelling in the PF and is tight and tender all around her PF clock. 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 It is expected that therapy may be prolonged due to the pt's long list of comorbidities, but the pt will benefit from skilled physical therapy to work towards achieving the above stated goals. Physical Therapy Plan Frequency and Duration Frequency of Treatment 1x/Week Duration of treatment (weeks) 12 Plan of Care Start Date 07/10/23 Plan of Care End Date 10/05/23 Therapeutic Interventions Therapeutic Interventions Home Exercise Program,Joint Mobilizations,Manual Therapy, Neuromuscular Re-education, Self-Care/Home Management,Soft Tissue Mobilization,Taping, Therapeutic Activities, Therapeutic Exercises Modalities Biofeedback,Cold Pack/Ice Massage,Electric Stimulation Next Visit Focus/Plan Next Note Type Treatment Note Next Visit Plan Latex allergy. Next: Review bladder diary, pt education in norms for fluid intake for hydration, Correct L innominate posterior rotation. educate/discuss stool types, foods, Bowel massage, proper sit to stand, vulvar/genital care and moving in bed using breathwork and body mechanics for reduction of intra- abdominal pressure with transfers and body mechanics; proper deep breathing. Pt education in bladder retraining with urge deference technique, Relaxation of PF after, Kegel without use of substitute muscles. Core/hip stabilization strengthening, improve hip mobility (except L hip ER), improve abdominal soft tissue (bladder/urachus) mobility. POC: Pt education, Manual therapy. ? Biofeedback with vaginal sensor. Therapeutic Exercises, Therapeutic Activities, Neuromuscular Reeducation. Plan of Care Dates Plan of Care Start Date 07/10/23 Plan of Care End Date 10/05/23 Electronically Signed by: Patrizia Garner, PT 07/10/23 [id number] If you are in agreement with this Plan of Care, please return a signed and dated copy. I have reviewed this Plan of Care and certify that the skilled therapy services above are required to meet the patient?s needs. Physician Signature Date Printed Name and Credentials Clinical Instructor Signature Printed Name and Credentials
--- NOTE | 2023-07-17 08:59 | PT.OTN ---
Current Diagnoses Cystocele, unspecified (07/17/23) Unspecified urinary incontinence (07/17/23) Physical Therapy Treatment Note PT-OP-A Visit Information Start: 07/05/23 16:17 Freq: Status: Active Protocol: Document 07/17/23 07:32 LRN (Rec: 07/17/23 08:58 LRN [id number]) Out-Patient Physical Therapy Visit Information Visit Information Visit Type Treatment Note Visit Start Time 07:31 Visit Stop Time 08:12 Visit Number 08/12 Evaluation Information Evaluation Date 07/10/23 Precautions Precautions Latex Tape Allergy, L hip pops out with hip ER, Depression, Celiac Disease, Endometriosis, hysterectomy ( retained overaries), Fibromyalgia, Dizziness that failed vestibular treatment, 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 Wgt not mentioned due to her history of eating disorder. PT-OP-B Current Condition Start: 07/05/23 16:17 Freq: Status: Active Protocol: Document 07/10/23 07:32 LRN (Rec: 07/10/23 08:20 LRN [id number]) Current Condition History of Current Condition Onset Date Urinary incontinence-2006, Bladder prolapse-2022 Current Complaints Urinary incontinence and Vaginal Prolapse felt History of Current Condition Urinary incontinence (2006) was manageable until last year diagnosed with Bladder Prolpase (02/2023). Pt reports history of celiac disease and that GI issues have worsened as late. She is now having to push her bladder back up. 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 The pt is sent to PT before doing anything surgical. Now having constant heaviness in pelvic floor, previously it was intermittent. In the past 4-5 yrs has been having watery fecal leakage, possibly from hemorrhoids. Prior Treatments and Tests PT for GI issues ~ 4 ys ago ( records indicate PT in 11/29/20 ). Developmental History Developmental History 2 births/3 pregnancies, vaginal births (2006, 2008). first took a long time ( 36 hrs) but no tearing. Celiac Disease diagnosed 2012 but has had it since childhood (severe abdominal cramping) and history of endometriosis, as found when did hyste in 2021. Treatment Goals Patient/Caregiver Goals Pt goals is: -to strengthen the PF to reduce heaviness feeling and regain control of bladder. -wear menstrual maxi-pads if having a bad day, and light pads daily. Personal Factors Other Personal Factors That May Effect L hip dysfunction (limited in Therapy/Recovery ER due to hip jt instability), Celiac disease, Endometriosis , Fibromyalgia, Depression, Dizziness intermittent with walking, sitting up too fast or laying down on R side. PT-OP-C Subjective Start: 07/05/23 16:17 Freq: Status: Active Protocol: Document 07/17/23 07:32 LRN (Rec: 07/17/23 08:58 LRN [id number]) OP-PT Subjective Patient Comments Patient Comments States she did her bladder diary. No spasms and very little leakage. PT-OP-I Pelvic Floor Start: 07/05/23 16:17 Freq: Status: Active Protocol: Document 07/10/23 07:32 LRN (Rec: 07/10/23 08:20 LRN [id number]) Pelvic Floor Assessment Bowel Bowel Symptoms Constipation,Fecal Leakage, Pain Other Bowel Symptoms Pain in anal and perineal pain . Pelvic Clock Pelvic Clock 12-3 Tenderness Pelvic Clock 3-6 Tenderness Pelvic Clock 6-9 Tenderness Pelvic Clock 9-12 Tenderness Pelvic Clock Other Swollen Prolapse Cystocele Grade 2 Perineal Descent Resting Absent Bearing Present Contraction Ability Manual Muscle Testing Left 2 Manual Muscle Testing Right 3 Manual Muscle Testing Anterior 3 Manual Muscle Testing Posterior 2 Muscle Endurance (Seconds) 3 Number of Quick Contractions In 10 5 Seconds Comments Pelvic Floor Comments Minimal PF contraction visible externally (very minimal clitoral nod). Pt uses gluteals and mildly abdominal ms to get a PF contraction. PT-OP-J Posture/Palpation/Skin Start: 07/05/23 16:17 Freq: Status: Active Protocol: Document 07/10/23 07:32 LRN (Rec: 07/10/23 08:20 LRN [id number]) Posture Evaluation Position Standing Head/C-Spine Posture Side Bent Left,Forward Head L-Spine Posture Decreased Lordosis Shoulder Posture (L) Elevated Scapula Posture (L) Retracted Arm Posture (L) Neutral,(R) Neutral Pelvis Posture Neutral,(L) Iliac Crest Superior,(L) PSIS Inferior Knee Posture (L) Genu Valgus,(R) Genu Valgus Foot Arch (L) No Arch,(R) No Arch Comments Posture Comments Holds L hip in neutral ( purposeful IR) because L femur pops out if not keeping it in neutral, L PSIS is low/ L ASIS is high (L innominate posteriorly rotated). PT-OP-K Range of Motion Start: 07/05/23 16:17 Freq: Status: Active Protocol: Document 07/10/23 07:32 LRN (Rec: 07/10/23 08:20 LRN [id number]) Lumbar Spine Range of Motion Lumbar Spine Active Degrees Testing Position Standing Flexion 70 Extension 15 Rotation Left 45 Rotation Right 45 Lateral Flexion Left 20 Lateral Flexion Right 18 Hip Goniometric Range of Motion Hip Right Passive Testing Position Supine Internal Rotation 35 External Rotation 70 Left Passive Testing Position Supine Internal Rotation 45 External Rotation 30 Comments Hip started to come out of joint at ~30 deg's active ROM. PT-OP-M Strength Start: 07/05/23 16:17 Freq: Status: Active Protocol: Document 07/10/23 07:32 LRN (Rec: 07/10/23 08:20 LRN [id number]) Hip Strength Hip Manual Muscle Testing Right Comments Strength is 5/5 Left Comments Strength is 5/5 PT-OP-Q Treatments Start: 07/05/23 16:17 Freq: Status: Active Protocol: Document 07/17/23 07:32 LRN (Rec: 07/17/23 08:58 LRN [id number]) Therapeutic Exercises Supine Exercises Deep Breathing Supine Exercise Name Deep Breathing (DB) training. Comments Cued to put hand on chest & belly, cuing for speed and mvmt of breath Sitting Exercises Bowel massage Sitting Exercise Name Bowel massage training Reps/Minutes 4 Comments Stressed CW motion of massage Self-Care/Home Management Treatment Education Patient Education Home Exercise Program Other Education Reviewed Bladder dairy and discussed at length fluid intake (AM/PM) & types of fluid (irritants), and recommended hydration level ( emphysis on 6-8 glasses of fluid a day to avoid discussion of wgt due to her eating hx disorder), bowel movement frequency, & nighttime voiding frequency. Pt education and lengthy discussion on Bowel program. Pt lengthy education and discussion in Urinary urge deference technique. Activities Self-Care/Home Management Activities Handouts issued for: Foods & beverages Bladder Diet Bowel masage and Bowel Program . Urinary Urge deference technique. PT-OP-T Assessment and Plan Start: 07/05/23 16:17 Freq: Status: Active Protocol: Document 07/17/23 07:32 LRN (Rec: 07/17/23 08:58 LRN [id number]) Physical Therapy Assessment Goals Four Impairment Constipation Short Term Goal (STG) Pt will be educated in norms for fluid intake for hydration and bowel care. STG Duration 4 wks-08/07/23 07/17/23: MET GOAL Usp Goal (LTG) Pt will be independent with BM massage to promote daily BM's . LTG Duration 12 wks-10/05/23 Three Impairment Pt uses a daily light pad and menstrual maxi-pad on bad days . Short Term Goal (STG) Pt will be educated in vulvar and genital care and difference between menstrual and urinary incontinence pads. STG Duration 4 wks-08/07/23 Usp Goal (LTG) PF stretching to improve ability to contract posterior and anterior PF to reduce urinary and fecal leakage. LTG Duration 12 wks-10/05/23 Two Impairment Cystocele grade 3 in supine Short Term Goal (STG) Pt will be educated in proper transfers to lessen core abdominal pressure and proper posture (sit/stand). STG Duration 4 wks-08/07/23 Usp Goal (LTG) -to strengthen the PF to reduce heaviness feeling and regain control of bladder. LTG Duration 12 wks-10/05/23 One Impairment Pt lacks an independent self care HEP. Short Term Goal (STG) Pt will be educated in self abdominal STM and PF stretching with wand. STG Duration 4 wks-08/07/23 Senior Database Engineer Goal (LTG) Pt will be independent in a self care HEP for PF/trunk and hips (except L hip ER) stretching and strengthening ex's. LTG Duration 12 wks-10/05/23 Assessment Summary Assessment 38 yo female who presents with soft tissue tightness of her PF with bladder prolapse grade 3 and minimal bulge from rectal prolapse, but difficult to assess due to PF swelling. Not able to address post rot L innominate today and check of her pubic symphysis. Pt was very receptive to training and discussion of food/fluid intake and her level of constipation. As expected, progress will be slow due to factoring multiple comorbidities. Physical Therapy Plan Frequency and Duration Frequency of Treatment 1x/Week Duration of treatment (weeks) 12 Plan of Care Start Date 07/10/23 Plan of Care End Date 10/05/23 Next Visit Focus/Plan Next Note Type Treatment Note Next Visit Plan Latex allergy. Next: Review deep breathing & Educate in bowel movements without holding breath and discussed squatty potty, with handout issued for squatty potty. Correct L innominate posterior rotation. Assess response to urinary delay technique and changes with bowel care. educate/discuss stool types, proper sit to stand, vulvar/ genital care and moving in bed using breathwork and body mechanics for reduction of intra-abdominal pressure with transfers and body mechanics. Pt education in bladder retraining with urge deference technique, Relaxation of PF after, Kegel without use of substitute muscles. Core/hip stabilization strengthening, improve hip mobility (except L hip ER), improve abdominal soft tissue (bladder/urachus) mobility. POC: Pt education, Manual therapy. ? Biofeedback with vaginal sensor. Therapeutic Exercises, Therapeutic Activities, Neuromuscular Reeducation.
--- NOTE | 2023-07-24 13:43 | PT.OTN ---
Current Diagnoses Cystocele, unspecified (07/24/23) Unspecified urinary incontinence (07/24/23) Physical Therapy Treatment Note PT-OP-A Visit Information Start: 07/05/23 16:17 Freq: Status: Active Protocol: Document 07/24/23 07:33 LRN (Rec: 07/24/23 08:18 LRN [id number]) Out-Patient Physical Therapy Visit Information Visit Information Visit Type Treatment Note Visit Start Time 07:33 Visit Stop Time 08:13 Visit Number 2 Evaluation Information Evaluation Date 07/10/23 Precautions Precautions Latex Tape Allergy, L hip pops out with hip ER, Depression, Celiac Disease, Endometriosis, hysterectomy ( retained overaries), Fibromyalgia, Dizziness that failed vestibular treatment, 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 Wgt not mentioned due to her history of eating disorder. PT-OP-B Current Condition Start: 07/05/23 16:17 Freq: Status: Active Protocol: Document 07/10/23 07:32 LRN (Rec: 07/10/23 08:20 LRN [id number]) Current Condition History of Current Condition Onset Date Urinary incontinence-2006, Bladder prolapse-2022 Current Complaints Urinary incontinence and Vaginal Prolapse felt History of Current Condition Urinary incontinence (2006) was manageable until last year diagnosed with Bladder Prolpase (02/2023). Pt reports history of celiac disease and that GI issues have worsened as late. She is now having to push her bladder back up. 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 The pt is sent to PT before doing anything surgical. Now having constant heaviness in pelvic floor, previously it was intermittent. In the past 4-5 yrs has been having watery fecal leakage, possibly from hemorrhoids. Prior Treatments and Tests PT for GI issues ~ 4 ys ago ( records indicate PT in 11/29/20 ). Developmental History Developmental History 2 births/3 pregnancies, vaginal births (2006, 2008). first took a long time ( 36 hrs) but no tearing. Celiac Disease diagnosed 2012 but has had it since childhood (severe abdominal cramping) and history of endometriosis, as found when did hyste in 2021. Treatment Goals Patient/Caregiver Goals Pt goals is: -to strengthen the PF to reduce heaviness feeling and regain control of bladder. -wear menstrual maxi-pads if having a bad day, and light pads daily. Personal Factors Other Personal Factors That May Effect L hip dysfunction (limited in Therapy/Recovery ER due to hip jt instability), Celiac disease, Endometriosis , Fibromyalgia, Depression, Dizziness intermittent with walking, sitting up too fast or laying down on R side. PT-OP-C Subjective Start: 07/05/23 16:17 Freq: Status: Active Protocol: Document 07/24/23 07:33 LRN (Rec: 07/24/23 08:18 LRN [id number]) OP-PT Subjective Patient Comments Patient Comments States she has not had a BM in past 2 days. States hard bump in anus may be blocking her BM so her BM's come out pencil thin. Has enema that was very painful in the past. PT-OP-I Pelvic Floor Start: 07/05/23 16:17 Freq: Status: Active Protocol: Document 07/10/23 07:32 LRN (Rec: 07/10/23 08:20 LRN [id number]) Pelvic Floor Assessment Bowel Bowel Symptoms Constipation,Fecal Leakage, Pain Other Bowel Symptoms Pain in anal and perineal pain . Pelvic Clock Pelvic Clock 12-3 Tenderness Pelvic Clock 3-6 Tenderness Pelvic Clock 6-9 Tenderness Pelvic Clock 9-12 Tenderness Pelvic Clock Other Swollen Prolapse Cystocele Grade 2 Perineal Descent Resting Absent Bearing Present Contraction Ability Manual Muscle Testing Left 2 Manual Muscle Testing Right 3 Manual Muscle Testing Anterior 3 Manual Muscle Testing Posterior 2 Muscle Endurance (Seconds) 3 Number of Quick Contractions In 10 5 Seconds Comments Pelvic Floor Comments Minimal PF contraction visible externally (very minimal clitoral nod). Pt uses gluteals and mildly abdominal ms to get a PF contraction. PT-OP-J Posture/Palpation/Skin Start: 07/05/23 16:17 Freq: Status: Active Protocol: Document 07/10/23 07:32 LRN (Rec: 07/10/23 08:20 LRN [id number]) Posture Evaluation Position Standing Head/C-Spine Posture Side Bent Left,Forward Head L-Spine Posture Decreased Lordosis Shoulder Posture (L) Elevated Scapula Posture (L) Retracted Arm Posture (L) Neutral,(R) Neutral Pelvis Posture Neutral,(L) Iliac Crest Superior,(L) PSIS Inferior Knee Posture (L) Genu Valgus,(R) Genu Valgus Foot Arch (L) No Arch,(R) No Arch Comments Posture Comments Holds L hip in neutral ( purposeful IR) because L femur pops out if not keeping it in neutral, L PSIS is low/ L ASIS is high (L innominate posteriorly rotated). PT-OP-K Range of Motion Start: 07/05/23 16:17 Freq: Status: Active Protocol: Document 07/10/23 07:32 LRN (Rec: 07/10/23 08:20 LRN [id number]) Lumbar Spine Range of Motion Lumbar Spine Active Degrees Testing Position Standing Flexion 70 Extension 15 Rotation Left 45 Rotation Right 45 Lateral Flexion Left 20 Lateral Flexion Right 18 Hip Goniometric Range of Motion Hip Right Passive Testing Position Supine Internal Rotation 35 External Rotation 70 Left Passive Testing Position Supine Internal Rotation 45 External Rotation 30 Comments Hip started to come out of joint at ~30 deg's active ROM. PT-OP-M Strength Start: 07/05/23 16:17 Freq: Status: Active Protocol: Document 07/10/23 07:32 LRN (Rec: 07/10/23 08:20 LRN [id number]) Hip Strength Hip Manual Muscle Testing Right Comments Strength is 5/5 Left Comments Strength is 5/5 PT-OP-Q Treatments Start: 07/05/23 16:17 Freq: Status: Active Protocol: Document 07/24/23 07:33 LRN (Rec: 07/24/23 08:18 LRN [id number]) Therapeutic Exercises Supine Exercises Happy Baby Pose Supine Exercise Name Happy Baby Pose Reps/Minutes 5' Comments Cued to breath through stretch Bowel Massage Supine Exercise Name Bowel massage training, f/b Cup of warm water. Reps/Minutes 5x Comments Cued to use flat of hand vs fingers, & move slow Deep Breathing Supine Exercise Name Deep Breathing (DB) training. Reps/Minutes 2' Comments Cued to put hand on chest & belly, cuing for speed and mvmt of breath Sitting Exercises Hip AD stretch Sitting Exercise Name SL on plinth inner thigh stretch Side bilateral Reps/Minutes 5' Comments Cued to breath through stretch Deep Breathing Sitting Exercise Name Deep Breathing Reps/Minutes 2' Comments Cued to put hand on chest & belly, cuing for speed and mvmt of breath Other Exercises Child's pose Other Exercise Name Child's Pose Reps/Minutes 2' Comments Cued for breathing. Self-Care/Home Management Treatment Education Other Education Reviewed 3 day Bladder diary, noted and discussed pt drinking plenty of fluids (> 1 /2 body wgt); therefore increased need to urinate. Also noted pt had daily BM's, sometimes hourly voiding and leakage only with walking or first in morning. Discussed pt to stop voiding just in case and to work on getting voids every couple of hours. Discussed BM's and pt having bulge in anal area that is going to be checked by MD, but discussed having rectal digital assessment. Pt agreeable to doing it next visit. Activities Self-Care/Home Management Activities I/S pt in HEP: Happy Baby Pose, Child's Pose & Hip AD stretch. PT-OP-T Assessment and Plan Start: 07/05/23 16:17 Freq: Status: Active Protocol: Document 07/24/23 07:33 LRN (Rec: 07/24/23 08:18 LRN [id number]) Physical Therapy Assessment Goals Four Impairment Constipation Impairment Enema done once very painful. Short Term Goal (STG) Pt will be educated in norms for fluid intake for hydration and bowel care. STG Duration 4 wks-08/07/23 07/17/23: MET GOAL Custodial Goal (LTG) Pt will be independent with BM massage to promote daily BM's . LTG Duration 12 wks-10/05/23 Three Impairment Pt uses a daily light pad and menstrual maxi-pad on bad days . Short Term Goal (STG) Pt will be educated in vulvar and genital care and difference between menstrual and urinary incontinence pads. STG Duration 4 wks-08/07/23 Purchasing Associate Goal (LTG) PF stretching to improve ability to contract posterior and anterior PF to reduce urinary and fecal leakage. LTG Duration 12 wks-10/05/23 Two Impairment Cystocele grade 3 in supine Short Term Goal (STG) Pt will be educated in proper transfers to lessen core abdominal pressure and proper posture (sit/stand). STG Duration 4 wks-08/07/23 Purchasing Associate Goal (LTG) -to strengthen the PF to reduce heaviness feeling and regain control of bladder. LTG Duration 12 wks-10/05/23 One Impairment Pt lacks an independent self care HEP. Short Term Goal (STG) Pt will be educated in self abdominal STM and PF stretching with wand. STG Duration 4 wks-08/07/23 Custodial Goal (LTG) Pt will be independent in a self care HEP for PF/trunk and hips (except L hip ER) stretching and strengthening ex's. 07/24/23: I/S pt in HEP: Happy Baby Pose, Child's Pose & Hip AD stretch. LTG Duration 12 wks-10/05/23 progressed 07/24/23 Assessment Summary Assessment 38 yo female who presents with soft tissue tightness of her PF with bladder prolapse grade 3 and minimal bulge from rectal prolapse, but difficult to assess due to PF swelling. Per Bladder diary, for 3 days pt had daily BM, had 1 day of urination every 2 hrs and over 3 days leaked only 1 day. Leakage is with waking and walking x 3; therefore it appears pt has PF weakness, but she has symptoms of tight PF per subjective history of bowel leakage after constipation and had enema once that was very painful to apply. Pt may have tight PF limiting BM's and causing urinary leakage. Further assessment is needed. Physical Therapy Plan Frequency and Duration Frequency of Treatment 1x/Week Duration of treatment (weeks) 12 Plan of Care Start Date 07/10/23 Plan of Care End Date 10/05/23 Next Visit Focus/Plan Next Note Type Treatment Note Next Visit Plan Latex allergy. (wgt 160, pt not monitoring wgt) Next: Check post rot L innominate and check of her pubic symphysis. Posterior PF assessment (rectal assess). Review deep breathing & Educate in bowel movements without holding breath and discussed squatty potty, with handout issued for squatty potty. Correct L innominate posterior rotation. Assess response to urinary delay technique and changes with bowel care. educate/discuss stool types, proper sit to stand, vulvar/ genital care and moving in bed using breathwork and body mechanics for reduction of intra-abdominal pressure with transfers and body mechanics. Pt education in bladder retraining with urge deference technique, Relaxation of PF after, Kegel without use of substitute muscles. Core/hip stabilization strengthening, improve hip mobility (except L hip ER), improve abdominal soft tissue (bladder/urachus) mobility. POC: Pt education, Manual therapy. ? Biofeedback with vaginal sensor. Therapeutic Exercises, Therapeutic Activities, Neuromuscular Reeducation.
--- NOTE | 2023-07-31 12:49 | PT.OTN ---
Current Diagnoses Cystocele, unspecified (07/31/23) Unspecified urinary incontinence (07/31/23) Physical Therapy Treatment Note PT-OP-A Visit Information Start: 07/05/23 16:17 Freq: Status: Active Protocol: Document 07/31/23 07:27 LRN (Rec: 07/31/23 08:19 LRN [id number]) Out-Patient Physical Therapy Visit Information Visit Information Visit Type Treatment Note Visit Start Time 07:30 Visit Stop Time 08:10 Visit Number 3 Evaluation Information Evaluation Date 07/10/23 Precautions Precautions Latex Tape Allergy, L hip pops out with hip ER, Depression, Celiac Disease, Endometriosis, hysterectomy ( retained overaries), Fibromyalgia, Dizziness that failed vestibular treatment, 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 Wgt not mentioned due to her history of eating disorder. PT-OP-B Current Condition Start: 07/05/23 16:17 Freq: Status: Active Protocol: Document 07/10/23 07:32 LRN (Rec: 07/10/23 08:20 LRN [id number]) Current Condition History of Current Condition Onset Date Urinary incontinence-2006, Bladder prolapse-2022 Current Complaints Urinary incontinence and Vaginal Prolapse felt History of Current Condition Urinary incontinence (2006) was manageable until last year diagnosed with Bladder Prolpase (02/2023). Pt reports history of celiac disease and that GI issues have worsened as late. She is now having to push her bladder back up. 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 The pt is sent to PT before doing anything surgical. Now having constant heaviness in pelvic floor, previously it was intermittent. In the past 4-5 yrs has been having watery fecal leakage, possibly from hemorrhoids. Prior Treatments and Tests PT for GI issues ~ 4 ys ago ( records indicate PT in 11/29/20 ). Developmental History Developmental History 2 births/3 pregnancies, vaginal births (2006, 2008). first took a long time ( 36 hrs) but no tearing. Celiac Disease diagnosed 2012 but has had it since childhood (severe abdominal cramping) and history of endometriosis, as found when did hyste in 2021. Treatment Goals Patient/Caregiver Goals Pt goals is: -to strengthen the PF to reduce heaviness feeling and regain control of bladder. -wear menstrual maxi-pads if having a bad day, and light pads daily. Personal Factors Other Personal Factors That May Effect L hip dysfunction (limited in Therapy/Recovery ER due to hip jt instability), Celiac disease, Endometriosis , Fibromyalgia, Depression, Dizziness intermittent with walking, sitting up too fast or laying down on R side. PT-OP-C Subjective Start: 07/05/23 16:17 Freq: Status: Active Protocol: Document 07/31/23 07:27 LRN (Rec: 07/31/23 08:19 LRN [id number]) OP-PT Subjective Patient Comments Patient Comments Doesn't seem to be as much pain doing stretches. Last bowel movement was uncomfortable, not painful, no fecal leakage after BM. PT-OP-I Pelvic Floor Start: 07/05/23 16:17 Freq: Status: Active Protocol: Document 07/10/23 07:32 LRN (Rec: 07/10/23 08:20 LRN [id number]) Pelvic Floor Assessment Bowel Bowel Symptoms Constipation,Fecal Leakage, Pain Other Bowel Symptoms Pain in anal and perineal pain . Pelvic Clock Pelvic Clock 12-3 Tenderness Pelvic Clock 3-6 Tenderness Pelvic Clock 6-9 Tenderness Pelvic Clock 9-12 Tenderness Pelvic Clock Other Swollen Prolapse Cystocele Grade 2 Perineal Descent Resting Absent Bearing Present Contraction Ability Manual Muscle Testing Left 2 Manual Muscle Testing Right 3 Manual Muscle Testing Anterior 3 Manual Muscle Testing Posterior 2 Muscle Endurance (Seconds) 3 Number of Quick Contractions In 10 5 Seconds Comments Pelvic Floor Comments Minimal PF contraction visible externally (very minimal clitoral nod). Pt uses gluteals and mildly abdominal ms to get a PF contraction. PT-OP-J Posture/Palpation/Skin Start: 07/05/23 16:17 Freq: Status: Active Protocol: Document 07/10/23 07:32 LRN (Rec: 07/10/23 08:20 LRN [id number]) Posture Evaluation Position Standing Head/C-Spine Posture Side Bent Left,Forward Head L-Spine Posture Decreased Lordosis Shoulder Posture (L) Elevated Scapula Posture (L) Retracted Arm Posture (L) Neutral,(R) Neutral Pelvis Posture Neutral,(L) Iliac Crest Superior,(L) PSIS Inferior Knee Posture (L) Genu Valgus,(R) Genu Valgus Foot Arch (L) No Arch,(R) No Arch Comments Posture Comments Holds L hip in neutral ( purposeful IR) because L femur pops out if not keeping it in neutral, L PSIS is low/ L ASIS is high (L innominate posteriorly rotated). PT-OP-K Range of Motion Start: 07/05/23 16:17 Freq: Status: Active Protocol: Document 07/10/23 07:32 LRN (Rec: 07/10/23 08:20 LRN [id number]) Lumbar Spine Range of Motion Lumbar Spine Active Degrees Testing Position Standing Flexion 70 Extension 15 Rotation Left 45 Rotation Right 45 Lateral Flexion Left 20 Lateral Flexion Right 18 Hip Goniometric Range of Motion Hip Right Passive Testing Position Supine Internal Rotation 35 External Rotation 70 Left Passive Testing Position Supine Internal Rotation 45 External Rotation 30 Comments Hip started to come out of joint at ~30 deg's active ROM. PT-OP-M Strength Start: 07/05/23 16:17 Freq: Status: Active Protocol: Document 07/10/23 07:32 LRN (Rec: 07/10/23 08:20 LRN [id number]) Hip Strength Hip Manual Muscle Testing Right Comments Strength is 5/5 Left Comments Strength is 5/5 PT-OP-Q Treatments Start: 07/05/23 16:17 Freq: Status: Active Protocol: Document 07/31/23 07:27 LRN (Rec: 07/31/23 08:19 LRN [id number]) Therapeutic Exercises Supine Exercises Happy Baby Pose Supine Exercise Name Happy Baby Pose Reps/Minutes 5' Comments Cued to breath through stretch Bowel Massage Supine Exercise Name Bowel massage review. Reps/Minutes 5x Comments Cued to use flat of hand vs fingers, & move slow Deep Breathing Supine Exercise Name Deep Breathing (DB) training. Reps/Minutes 3x Comments Good ability to perform properly Other Exercises Child's pose Other Exercise Name Child's Pose Reps/Minutes 3' Comments Cued for breathing. Manual Therapy Treatment Soft Tissue Mobilization Abdomen Body Location Abdomen Super<>INfer, Urachus , distraction. Mobilization Type Manual Lymphatic Drainage Intensity/Depth Moderate Body Position Supine Comments Pain with distraction on L side. Neuro Re-Education Treatment Coordination Activities Transfers w/breath/TA Details Coordination of transfer with breath/TA tightening Reps/Duration 2' Self-Care/Home Management Treatment Education Other Education Discussed use of squatty potty chair to assist with BM's thru hip positioning and to use deep breathing to assist with BM. Activities Self-Care/Home Management Activities Issued handouts for: Squatty Potty chair, ILU bowel massage , & proper sit/stand posture and bed mobility with breath for core pressure management. PT-OP-T Assessment and Plan Start: 07/05/23 16:17 Freq: Status: Active Protocol: Document 07/31/23 07:27 LRN (Rec: 07/31/23 08:19 LRN [id number]) Physical Therapy Assessment Goals Four Impairment Constipation Impairment Enema done once very painful. Short Term Goal (STG) Pt will be educated in norms for fluid intake for hydration and bowel care. STG Duration 4 wks-08/07/23 07/17/23: MET GOAL Agricultural Purchasing Agent Goal (LTG) Pt will be independent with BM massage to promote daily BM's . 07/31/23: Issued handout for BM massage. Pt performed properly today f/b warm cup of water. LTG Duration 12 wks-10/05/23 progressing 07/31/23 (need daily BMs) Three Impairment Pt uses a daily light pad and menstrual maxi-pad on bad days . Short Term Goal (STG) Pt will be educated in vulvar and genital care and difference between menstrual and urinary incontinence pads. STG Duration 4 wks-08/07/23 Agricultural Purchasing Agent Goal (LTG) PF stretching to improve ability to contract posterior and anterior PF to reduce urinary and fecal leakage. LTG Duration 12 wks-10/05/23 Two Impairment Cystocele grade 3 in supine Short Term Goal (STG) Pt will be educated in proper transfers to lessen core abdominal pressure and proper posture (sit/stand). STG Duration 4 wks-08/07/23 (07/31/23: MET GOAL) Senior Living Goal (LTG) -to strengthen the PF to reduce heaviness feeling and regain control of bladder. LTG Duration 12 wks-10/05/23 One Impairment Pt lacks an independent self care HEP. Short Term Goal (STG) Pt will be educated in self abdominal STM and PF stretching with wand. 07/17/23: Bowel massage issued. 07/31/23: Review of bowel massage. STG Duration 4 wks-08/07/23 07/31/23: Partailly met goal (need PF stretch w/wand) Senior Living Goal (LTG) Pt will be independent in a self care HEP for PF/trunk and hips (except L hip ER) stretching and strengthening ex's. 07/24/23: I/S pt in HEP: Happy Baby Pose, Child's Pose & Hip AD stretch. 07/31/23: Issued handouts for : Squatty Potty chair, ILU bowel massage, & proper sit/ stand posture and bed mobility with breath for core pressure management. LTG Duration 12 wks-10/05/23 progressed 07/31/23 Assessment Summary Assessment 38 yo female who presents with soft tissue tightness of her PF with bladder prolapse grade 3 and minimal bulge from rectal prolapse, but difficult to assess due to PF swelling. Pt improving; therefore will hold on Anal sphincter assessment, BM's lately aren't painful, but has discomfort. Her pelvis is in alignment, and pubic symphysis is tender but not painful. No DR, opening around umbilicus is within norm of 1-1.5 fingerwidth and very shallow. Pt able to perform Deep breathing properly. Pt receptive to education materials. Physical Therapy Plan Frequency and Duration Frequency of Treatment 1x/Week Duration of treatment (weeks) 12 Plan of Care Start Date 07/10/23 Plan of Care End Date 10/05/23 Next Visit Focus/Plan Next Note Type Treatment Note Next Visit Plan Latex allergy. (wgt 160, pt not monitoring wgt) Next: Review moving in bed using breathwork. Assess response to urinary delay technique and changes with bowel care. educate/discuss stool types, proper sit to stand, vulvar/ genital care and proper breathwork with body mechanics for reduction of intra-abdominal pressure with transfers and body mechanics. Pt education in bladder retraining with urge deference technique, Relaxation of PF after, Kegel without use of substitute muscles. Core/hip stabilization strengthening, improve hip mobility (except L hip ER), improve abdominal soft tissue (bladder/urachus) mobility. If needed: Posterior PF assessment (rectal assess) POC: Pt education, Manual therapy. ? Biofeedback with vaginal sensor. Therapeutic Exercises, Therapeutic Activities, Neuromuscular Reeducation.
--- NOTE | 2023-08-10 12:37 | PT.OTN ---
Current Diagnoses Cystocele, unspecified (08/10/23) Unspecified urinary incontinence (08/10/23) Physical Therapy Treatment Note PT-OP-A Visit Information Start: 07/05/23 16:17 Freq: Status: Active Protocol: Document 08/10/23 11:15 LRN (Rec: 08/10/23 12:37 LRN [id number]) Out-Patient Physical Therapy Visit Information Visit Information Visit Type Treatment Note Visit Start Time 11:15 Visit Stop Time 12:03 Visit Number 4 Evaluation Information Evaluation Date 07/10/23 Precautions Precautions Latex Tape Allergy, L hip pops out with hip ER, Depression, Celiac Disease, Endometriosis, hysterectomy ( retained overaries), Fibromyalgia, Dizziness that failed vestibular treatment, 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 Wgt not mentioned due to her history of eating disorder. PT-OP-B Current Condition Start: 07/05/23 16:17 Freq: Status: Active Protocol: Document 07/10/23 07:32 LRN (Rec: 07/10/23 08:20 LRN [id number]) Current Condition History of Current Condition Onset Date Urinary incontinence-2006, Bladder prolapse-2022 Current Complaints Urinary incontinence and Vaginal Prolapse felt History of Current Condition Urinary incontinence (2006) was manageable until last year diagnosed with Bladder Prolpase (02/2023). Pt reports history of celiac disease and that GI issues have worsened as late. She is now having to push her bladder back up. 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 The pt is sent to PT before doing anything surgical. Now having constant heaviness in pelvic floor, previously it was intermittent. In the past 4-5 yrs has been having watery fecal leakage, possibly from hemorrhoids. Prior Treatments and Tests PT for GI issues ~ 4 ys ago ( records indicate PT in 11/29/20 ). Developmental History Developmental History 2 births/3 pregnancies, vaginal births (2006, 2008). first took a long time ( 36 hrs) but no tearing. Celiac Disease diagnosed 2012 but has had it since childhood (severe abdominal cramping) and history of endometriosis, as found when did hyste in 2021. Treatment Goals Patient/Caregiver Goals Pt goals is: -to strengthen the PF to reduce heaviness feeling and regain control of bladder. -wear menstrual maxi-pads if having a bad day, and light pads daily. Personal Factors Other Personal Factors That May Effect L hip dysfunction (limited in Therapy/Recovery ER due to hip jt instability), Celiac disease, Endometriosis , Fibromyalgia, Depression, Dizziness intermittent with walking, sitting up too fast or laying down on R side. PT-OP-C Subjective Start: 07/05/23 16:17 Freq: Status: Active Protocol: Document 08/10/23 11:15 LRN (Rec: 08/10/23 12:37 LRN [id number]) OP-PT Subjective Patient Comments Patient Comments GI appt at end of October. Drinking more water, not eating dairy, and BM and stretches, and having daily BM 's non-painful. 1x painful due to large stool. States she is urinating less often and not JIC-ing when leaving the house. PT-OP-I Pelvic Floor Start: 07/05/23 16:17 Freq: Status: Active Protocol: Document 07/10/23 07:32 LRN (Rec: 07/10/23 08:20 LRN [id number]) Pelvic Floor Assessment Bowel Bowel Symptoms Constipation,Fecal Leakage, Pain Other Bowel Symptoms Pain in anal and perineal pain . Pelvic Clock Pelvic Clock 12-3 Tenderness Pelvic Clock 3-6 Tenderness Pelvic Clock 6-9 Tenderness Pelvic Clock 9-12 Tenderness Pelvic Clock Other Swollen Prolapse Cystocele Grade 2 Perineal Descent Resting Absent Bearing Present Contraction Ability Manual Muscle Testing Left 2 Manual Muscle Testing Right 3 Manual Muscle Testing Anterior 3 Manual Muscle Testing Posterior 2 Muscle Endurance (Seconds) 3 Number of Quick Contractions In 10 5 Seconds Comments Pelvic Floor Comments Minimal PF contraction visible externally (very minimal clitoral nod). Pt uses gluteals and mildly abdominal ms to get a PF contraction. PT-OP-J Posture/Palpation/Skin Start: 07/05/23 16:17 Freq: Status: Active Protocol: Document 07/10/23 07:32 LRN (Rec: 07/10/23 08:20 LRN [id number]) Posture Evaluation Position Standing Head/C-Spine Posture Side Bent Left,Forward Head L-Spine Posture Decreased Lordosis Shoulder Posture (L) Elevated Scapula Posture (L) Retracted Arm Posture (L) Neutral,(R) Neutral Pelvis Posture Neutral,(L) Iliac Crest Superior,(L) PSIS Inferior Knee Posture (L) Genu Valgus,(R) Genu Valgus Foot Arch (L) No Arch,(R) No Arch Comments Posture Comments Holds L hip in neutral ( purposeful IR) because L femur pops out if not keeping it in neutral, L PSIS is low/ L ASIS is high (L innominate posteriorly rotated). PT-OP-K Range of Motion Start: 07/05/23 16:17 Freq: Status: Active Protocol: Document 07/10/23 07:32 LRN (Rec: 07/10/23 08:20 LRN [id number]) Lumbar Spine Range of Motion Lumbar Spine Active Degrees Testing Position Standing Flexion 70 Extension 15 Rotation Left 45 Rotation Right 45 Lateral Flexion Left 20 Lateral Flexion Right 18 Hip Goniometric Range of Motion Hip Right Passive Testing Position Supine Internal Rotation 35 External Rotation 70 Left Passive Testing Position Supine Internal Rotation 45 External Rotation 30 Comments Hip started to come out of joint at ~30 deg's active ROM. PT-OP-M Strength Start: 07/05/23 16:17 Freq: Status: Active Protocol: Document 07/10/23 07:32 LRN (Rec: 07/10/23 08:20 LRN [id number]) Hip Strength Hip Manual Muscle Testing Right Comments Strength is 5/5 Left Comments Strength is 5/5 PT-OP-Q Treatments Start: 07/05/23 16:17 Freq: Status: Active Protocol: Document 08/10/23 11:15 LRN (Rec: 08/10/23 12:37 LRN [id number]) Therapeutic Exercises Supine Exercises Happy Baby Pose Supine Exercise Name Happy Baby Pose Reps/Minutes 3' Comments Cued to breath through stretch Sitting Exercises Hip AD stretch Sitting Exercise Name SL on plinth inner thigh stretch Side bilateral Reps/Minutes 5' Comments Cued to breath through stretch Deep Breathing Sitting Exercise Name Verbal review - good understanding Reps/Minutes 1' Comments Pt able to perform feeling ribs expand with breath. Other Exercises Child's pose Other Exercise Name Child's Pose Reps/Minutes 3' Comments Cued for breathing. Manual Therapy Treatment Soft Tissue Mobilization PF Body Location PF superficial and deep muscle stretching Mobilization Type Trigger Point Release Intensity/Depth Superficial to moderate Body Position Hooklying Comments TrP: in 4-11 of PF clock. Pressure lessened as needed to avoid bowel mvmt onset or pain in L hip and quivering in R hip. 9 O'Clock after release pt reported raw feeling, no pain at end of treatment. Neuro Re-Education Treatment Coordination Activities Coordination of Ex mvmt w/breath Details Coordination of stretches, UE lifts, & squats w/breath Reps/Duration 4' Comments Exhale with exertion on lift, core compression, or core tightening. Transfers w/breath/TA Details Coordination of transfer stand <>sit<>supine, with breath Reps/Duration 4' Self-Care/Home Management Treatment Education Patient Education Joint Protection Other Education Discussed and educated pt in anatomy of Urinary and Bowel system as effects with urinary and bowel voiding. Educated pt in urge deference technique with discussion of use with an urge and for possible use to eliminate nighttime voiding. Discussed stop voiding time before bedtime and recommendation to void first on waking. Discussed pt to monitor when voiding to be aware of times between voids. Activities Self-Care/Home Management Activities Issued handout for Urge deference technique. Issued & discussed use of small wand for PF stretching and trP treatment using side of wand vs tip. I/S pt in use of wand and if spouse assisting. Precautions discussed of avoiding bladder direction and to stop if other symptoms occur. PT-OP-T Assessment and Plan Start: 07/05/23 16:17 Freq: Status: Active Protocol: Document 08/10/23 11:15 LRN (Rec: 08/10/23 12:37 LRN [id number]) Physical Therapy Assessment Goals Four Impairment Constipation Impairment Enema done once very painful. Short Term Goal (STG) Pt will be educated in norms for fluid intake for hydration and bowel care. STG Duration 4 wks-08/07/23 07/17/23: MET GOAL Cutter Apprentice Hand Goal (LTG) Pt will be independent with BM massage to promote daily BM's . 07/31/23: Issued handout for BM massage. Pt performed properly today f/b warm cup of water. 08/10/23: Pt having daily BMs . LTG Duration 12 wks-10/05/23 (08/10/23: MET GOAL) Three Impairment Pt uses a daily light pad and menstrual maxi-pad on bad days . Short Term Goal (STG) Pt will be educated in vulvar and genital care and difference between menstrual and urinary incontinence pads. STG Duration 4 wks-08/07/23 Cutter Apprentice Hand Goal (LTG) PF stretching to improve ability to contract posterior and anterior PF to reduce urinary and fecal leakage. 08/10/23: Pt tols PF stretching. Issued small wand for HEP: PF stretching. LTG Duration 12 wks-10/05/23 progressing 08/10/23 Two Impairment Cystocele grade 3 in supine Short Term Goal (STG) Pt will be educated in proper transfers to lessen core abdominal pressure and proper posture (sit/stand). STG Duration 4 wks-08/07/23 (07/31/23: MET GOAL) Intermediate Goal (LTG) -to strengthen the PF to reduce heaviness feeling and regain control of bladder. LTG Duration 12 wks-10/05/23 One Impairment Pt lacks an independent self care HEP. Short Term Goal (STG) Pt will be educated in self abdominal STM and PF stretching with wand. 07/17/23: Bowel massage issued. 07/31/23: Review of bowel massage. 08/10/23: Issued small wand for home PF stretch. STG Duration 4 wks-08/07/23 (08/10/23: MET GOAL) Intermediate Goal (LTG) Pt will be independent in a self care HEP for PF/trunk and hips (except L hip ER) stretching and strengthening ex's. 07/24/23: I/S pt in HEP: Happy Baby Pose, Child's Pose & Hip AD stretch. 07/31/23: Issued handouts for : Squatty Potty chair, ILU bowel massage, & proper sit/ stand posture and bed mobility with breath for core pressure management. LTG Duration 12 wks-10/05/23 progressed 07/31/23 Assessment Summary Assessment 38 yo female who presents with soft tissue tightness of her PF with bladder prolapse grade 3 and minimal bulge from rectal prolapse, although difficult to initially assess. Pt much improved, having daily BMs and not urinating as much. Able to tolerate PF stretching. Feeling of BM need with stretching of PF, 4- 9 O'Clock. Pain in L hip with stretching on L side and quivering of ms with stretch to R side, possible assocation to ? Celiac Disease, Endometriosis, hysterectomy scar tissue? Pt very receptive to core pressure managment training with transfers and exercise. Physical Therapy Plan Frequency and Duration Frequency of Treatment 1x/Week Duration of treatment (weeks) 12 Plan of Care Start Date 07/10/23 Plan of Care End Date 10/05/23 Next Visit Focus/Plan Next Note Type Treatment Note Next Visit Plan Latex allergy. (wgt 160, pt not monitoring wgt). Assess response to self PF stretching with wand. Cont PF stretch & Assess cystocele/rectocele. Educate/discuss vulvar/genital care and proper breathwork with body mechanics. Relaxation of PF after Kegel, Kegel without use of substitute muscles. Ther ex/HEP: Core/hip stabilization strengthening, improve hip mobility (except L hip ER), Manual: improve abdominal soft tissue (bladder /urachus) mobility. If needed : Posterior PF assessment ( rectal assess) Pt education in bladder retraining with urge deference technique if needing to eliminate nighttime void. POC: Pt education, Manual therapy. ? Biofeedback with vaginal sensor. Therapeutic Exercises, Therapeutic Activities, Neuromuscular Reeducation.
--- NOTE | 2023-08-17 15:38 | PT.OTN ---
Current Diagnoses Cystocele, unspecified (08/17/23) Unspecified urinary incontinence (08/17/23) Physical Therapy Treatment Note PT-OP-A Visit Information Start: 07/05/23 16:17 Freq: Status: Active Protocol: Document 08/17/23 09:50 LRN (Rec: 08/17/23 10:36 LRN [id number]) Out-Patient Physical Therapy Visit Information Visit Information Visit Type Treatment Note Visit Start Time 09:50 Visit Stop Time 10:29 Visit Number 5 Evaluation Information Evaluation Date 07/10/23 Precautions Precautions Latex Tape Allergy, L hip pops out with hip ER, Depression, Celiac Disease, Endometriosis, hysterectomy ( retained overaries), Fibromyalgia, Dizziness that failed vestibular treatment, 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 Wgt not mentioned due to her history of eating disorder. PT-OP-B Current Condition Start: 07/05/23 16:17 Freq: Status: Active Protocol: Document 07/10/23 07:32 LRN (Rec: 07/10/23 08:20 LRN [id number]) Current Condition History of Current Condition Onset Date Urinary incontinence-2006, Bladder prolapse-2022 Current Complaints Urinary incontinence and Vaginal Prolapse felt History of Current Condition Urinary incontinence (2006) was manageable until last year diagnosed with Bladder Prolpase (02/2023). Pt reports history of celiac disease and that GI issues have worsened as late. She is now having to push her bladder back up. 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 The pt is sent to PT before doing anything surgical. Now having constant heaviness in pelvic floor, previously it was intermittent. In the past 4-5 yrs has been having watery fecal leakage, possibly from hemorrhoids. Prior Treatments and Tests PT for GI issues ~ 4 ys ago ( records indicate PT in 11/29/20 ). Developmental History Developmental History 2 births/3 pregnancies, vaginal births (2006, 2008). first took a long time ( 36 hrs) but no tearing. Celiac Disease diagnosed 2012 but has had it since childhood (severe abdominal cramping) and history of endometriosis, as found when did hyste in 2021. Treatment Goals Patient/Caregiver Goals Pt goals is: -to strengthen the PF to reduce heaviness feeling and regain control of bladder. -wear menstrual maxi-pads if having a bad day, and light pads daily. Personal Factors Other Personal Factors That May Effect L hip dysfunction (limited in Therapy/Recovery ER due to hip jt instability), Celiac disease, Endometriosis , Fibromyalgia, Depression, Dizziness intermittent with walking, sitting up too fast or laying down on R side. PT-OP-C Subjective Start: 07/05/23 16:17 Freq: Status: Active Protocol: Document 08/17/23 09:50 LRN (Rec: 08/17/23 10:36 LRN [id number]) OP-PT Subjective Patient Comments Patient Comments Did the bladder diary. Did not do PF stretching with wand . Used urinary delay technique during the day. Hasn't had to do it doing the night because she is sleeping through the night. Still having heaviness feeling in lower abdomen like menstrual period. PT-OP-I Pelvic Floor Start: 07/05/23 16:17 Freq: Status: Active Protocol: Document 07/10/23 07:32 LRN (Rec: 07/10/23 08:20 LRN [id number]) Pelvic Floor Assessment Bowel Bowel Symptoms Constipation,Fecal Leakage, Pain Other Bowel Symptoms Pain in anal and perineal pain . Pelvic Clock Pelvic Clock 12-3 Tenderness Pelvic Clock 3-6 Tenderness Pelvic Clock 6-9 Tenderness Pelvic Clock 9-12 Tenderness Pelvic Clock Other Swollen Prolapse Cystocele Grade 2 Perineal Descent Resting Absent Bearing Present Contraction Ability Manual Muscle Testing Left 2 Manual Muscle Testing Right 3 Manual Muscle Testing Anterior 3 Manual Muscle Testing Posterior 2 Muscle Endurance (Seconds) 3 Number of Quick Contractions In 10 5 Seconds Comments Pelvic Floor Comments Minimal PF contraction visible externally (very minimal clitoral nod). Pt uses gluteals and mildly abdominal ms to get a PF contraction. PT-OP-J Posture/Palpation/Skin Start: 07/05/23 16:17 Freq: Status: Active Protocol: Document 07/10/23 07:32 LRN (Rec: 07/10/23 08:20 LRN [id number]) Posture Evaluation Position Standing Head/C-Spine Posture Side Bent Left,Forward Head L-Spine Posture Decreased Lordosis Shoulder Posture (L) Elevated Scapula Posture (L) Retracted Arm Posture (L) Neutral,(R) Neutral Pelvis Posture Neutral,(L) Iliac Crest Superior,(L) PSIS Inferior Knee Posture (L) Genu Valgus,(R) Genu Valgus Foot Arch (L) No Arch,(R) No Arch Comments Posture Comments Holds L hip in neutral ( purposeful IR) because L femur pops out if not keeping it in neutral, L PSIS is low/ L ASIS is high (L innominate posteriorly rotated). PT-OP-K Range of Motion Start: 07/05/23 16:17 Freq: Status: Active Protocol: Document 07/10/23 07:32 LRN (Rec: 07/10/23 08:20 LRN [id number]) Lumbar Spine Range of Motion Lumbar Spine Active Degrees Testing Position Standing Flexion 70 Extension 15 Rotation Left 45 Rotation Right 45 Lateral Flexion Left 20 Lateral Flexion Right 18 Hip Goniometric Range of Motion Hip Right Passive Testing Position Supine Internal Rotation 35 External Rotation 70 Left Passive Testing Position Supine Internal Rotation 45 External Rotation 30 Comments Hip started to come out of joint at ~30 deg's active ROM. PT-OP-M Strength Start: 07/05/23 16:17 Freq: Status: Active Protocol: Document 07/10/23 07:32 LRN (Rec: 07/10/23 08:20 LRN [id number]) Hip Strength Hip Manual Muscle Testing Right Comments Strength is 5/5 Left Comments Strength is 5/5 PT-OP-Q Treatments Start: 07/05/23 16:17 Freq: Status: Active Protocol: Document 08/17/23 09:50 LRN (Rec: 08/17/23 10:36 LRN [id number]) Therapeutic Exercises Supine Exercises Happy Baby Pose Supine Exercise Name Happy Baby Pose Reps/Minutes 5' (stretched at 2 diff times) Comments Cued to breath through stretch Sitting Exercises Hip AD stretch Sitting Exercise Name SL on plinth inner thigh stretch Side bilateral Reps/Minutes 5' Comments Cued to breath through stretch Other Exercises Child's pose Other Exercise Name Child's Pose Reps/Minutes 3' Comments Cued for breathing. Manual Therapy Treatment Soft Tissue Mobilization PF Body Location PF superficial and deep muscle stretching Mobilization Type Trigger Point Release Intensity/Depth Superficial to moderate Body Position Hooklying Comments TrP: in 4-11 of PF clock. Pressure lessened as needed to avoid bowel mvmt onset or pain in L hip and quivering in R hip. 9 O'Clock after release pt reported raw feeling, no pain at end of treatment. Abdomen Body Location Abdomen Super<>INfer, Urachus , distraction. Mobilization Type Manual Lymphatic Drainage Intensity/Depth Moderate Body Position Supine Comments Pain with distraction on L side. Self-Care/Home Management Treatment Education Other Education Educated and discussed vulvar/ genital care: use of cotton clothing and wipes/toilet paper, and discussed, use of water to wash, and difference between menstrual and urinary incontinence pads, etc. Discussed breath coordintaion with with daily activities. Activities Self-Care/Home Management Activities Issued handout for Genital hygiene care and Gneral vulvar care. Issued handout for ADL activities. PT-OP-T Assessment and Plan Start: 07/05/23 16:17 Freq: Status: Active Protocol: Document 08/17/23 09:50 LRN (Rec: 08/17/23 10:36 LRN [id number]) Physical Therapy Assessment Goals Three Impairment Pt uses a daily light pad and menstrual maxi-pad on bad days . Short Term Goal (STG) Pt will be educated in vulvar and genital care and difference between menstrual and urinary incontinence pads. STG Duration 4 wks-08/07/23 (08/17/23: MET GOAL) Mud Jack Nozzleman Goal (LTG) PF stretching to improve ability to contract posterior and anterior PF to reduce urinary and fecal leakage. 08/10/23: Pt tols PF stretching. Issued small wand for HEP: PF stretching. LTG Duration 12 wks-10/05/23 progressing 08/10/23 Two Impairment Cystocele grade 3 in supine Short Term Goal (STG) Pt will be educated in proper transfers to lessen core abdominal pressure and proper posture (sit/stand). STG Duration 4 wks-08/07/23 (07/31/23: MET GOAL) Mud Jack Nozzleman Goal (LTG) -to strengthen the PF to reduce heaviness feeling and regain control of bladder. LTG Duration 12 wks-10/05/23 One Impairment Pt lacks an independent self care HEP. Short Term Goal (STG) Pt will be educated in self abdominal STM and PF stretching with wand. 07/17/23: Bowel massage issued. 07/31/23: Review of bowel massage. 08/10/23: Issued small wand for home PF stretch. STG Duration 4 wks-08/07/23 (08/10/23: MET GOAL) Mud Jack Nozzleman Goal (LTG) Pt will be independent in a self care HEP for PF/trunk and hips (except L hip ER) stretching and strengthening ex's. 07/24/23: I/S pt in HEP: Happy Baby Pose, Child's Pose & Hip AD stretch. 07/31/23: Issued handouts for : Squatty Potty chair, ILU bowel massage, & proper sit/ stand posture and bed mobility with breath for core pressure management. LTG Duration 12 wks-10/05/23 progressed 07/31/23 Assessment Summary Assessment 38 yo female with soft tissue PF tightness, bladder prolapse grade 3, and minimal bulge from rectal prolapse, although difficult to initially assess . Per bladder diary review , pt shows improvement with daily BM's (using coffee to help initiate BM), and urinary voiding every 2 hrs, occasionally 3 hrs with drinking plenty of water. Today she showed lower tolerance to PF stretching, with onset of nausea at stretching of 5 and 7 of PF Clock. Pt lateral trunk and abdomen is tighter on L. Physical Therapy Plan Frequency and Duration Frequency of Treatment 1x/Week Duration of treatment (weeks) 12 Plan of Care Start Date 07/10/23 Plan of Care End Date 10/05/23 Next Visit Focus/Plan Next Note Type Treatment Note Next Visit Plan Latex allergy. (wgt 160, pt not monitoring wgt). Check if self PF stretched with wand. Cont Gentle PF stretch & Assess cystocele/ rectocele. Educate/discuss proper breathwork with ADLs. Relaxation of PF after Kegel, Kegel without use of substitute muscles. Manual: improve abdominal soft tissue (bladder/urachus) mobility (L trunk > R trunk). If needed: Posterior PF assessment (rectal assess) Ther ex/HEP: Core/hip stabilization strengthening, improve hip mobility (except L hip ER), Pt education in bladder retraining with urge deference technique if needing to eliminate nighttime void. POC: Pt education, Manual therapy. ? Biofeedback with vaginal sensor. Therapeutic Exercises, Therapeutic Activities, Neuromuscular Reeducation.
--- NOTE | 2023-08-28 17:05 | PT.OTN ---
Current Diagnoses Cystocele, unspecified (08/28/23) Unspecified urinary incontinence (08/28/23) Physical Therapy Treatment Note PT-OP-A Visit Information Start: 07/05/23 16:17 Freq: Status: Active Protocol: Document 08/28/23 10:37 LRN (Rec: 08/28/23 11:18 LRN [id number]) Out-Patient Physical Therapy Visit Information Visit Information Visit Type Treatment Note Visit Start Time 10:37 Visit Stop Time 11:15 Visit Number 6 Evaluation Information Evaluation Date 07/10/23 Precautions Precautions Latex Tape Allergy, L hip pops out with hip ER, Depression, Celiac Disease, Endometriosis, hysterectomy ( retained overaries), Fibromyalgia, Dizziness that failed vestibular treatment, 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 Wgt not mentioned due to her history of eating disorder. PT-OP-B Current Condition Start: 07/05/23 16:17 Freq: Status: Active Protocol: Document 07/10/23 07:32 LRN (Rec: 07/10/23 08:20 LRN [id number]) Current Condition History of Current Condition Onset Date Urinary incontinence-2006, Bladder prolapse-2022 Current Complaints Urinary incontinence and Vaginal Prolapse felt History of Current Condition Urinary incontinence (2006) was manageable until last year diagnosed with Bladder Prolpase (02/2023). Pt reports history of celiac disease and that GI issues have worsened as late. She is now having to push her bladder back up. 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 The pt is sent to PT before doing anything surgical. Now having constant heaviness in pelvic floor, previously it was intermittent. In the past 4-5 yrs has been having watery fecal leakage, possibly from hemorrhoids. Prior Treatments and Tests PT for GI issues ~ 4 ys ago ( records indicate PT in 11/29/20 ). Developmental History Developmental History 2 births/3 pregnancies, vaginal births (2006, 2008). first took a long time ( 36 hrs) but no tearing. Celiac Disease diagnosed 2012 but has had it since childhood (severe abdominal cramping) and history of endometriosis, as found when did hyste in 2021. Treatment Goals Patient/Caregiver Goals Pt goals is: -to strengthen the PF to reduce heaviness feeling and regain control of bladder. -wear menstrual maxi-pads if having a bad day, and light pads daily. Personal Factors Other Personal Factors That May Effect L hip dysfunction (limited in Therapy/Recovery ER due to hip jt instability), Celiac disease, Endometriosis , Fibromyalgia, Depression, Dizziness intermittent with walking, sitting up too fast or laying down on R side. PT-OP-C Subjective Start: 07/05/23 16:17 Freq: Status: Active Protocol: Document 08/28/23 10:37 LRN (Rec: 08/28/23 11:18 LRN [id number]) OP-PT Subjective Patient Comments Patient Comments Had 2 days of constipation, because of time constraints. Since yesterday did the routines she shoulde be doing and had 3 BMs afterwards. Has loose fitting pants. States she doesn't have urinay or fecal leakage if she is not constipated, and is able to sleep through the night. If has an urge can do delay technique and make it to the bathroom. PT-OP-I Pelvic Floor Start: 07/05/23 16:17 Freq: Status: Active Protocol: Document 08/28/23 10:37 LRN (Rec: 08/28/23 11:18 LRN [id number]) Pelvic Floor Assessment Pelvic Clock Pelvic Clock 12-3 Tenderness Pelvic Clock 3-6 Tenderness Pelvic Clock 6-9 Tenderness Pelvic Clock 9-12 Tenderness Pelvic Clock Other Swollen on L side PT-OP-J Posture/Palpation/Skin Start: 07/05/23 16:17 Freq: Status: Active Protocol: Document 07/10/23 07:32 LRN (Rec: 07/10/23 08:20 LRN [id number]) Posture Evaluation Position Standing Head/C-Spine Posture Side Bent Left,Forward Head L-Spine Posture Decreased Lordosis Shoulder Posture (L) Elevated Scapula Posture (L) Retracted Arm Posture (L) Neutral,(R) Neutral Pelvis Posture Neutral,(L) Iliac Crest Superior,(L) PSIS Inferior Knee Posture (L) Genu Valgus,(R) Genu Valgus Foot Arch (L) No Arch,(R) No Arch Comments Posture Comments Holds L hip in neutral ( purposeful IR) because L femur pops out if not keeping it in neutral, L PSIS is low/ L ASIS is high (L innominate posteriorly rotated). PT-OP-K Range of Motion Start: 07/05/23 16:17 Freq: Status: Active Protocol: Document 07/10/23 07:32 LRN (Rec: 07/10/23 08:20 LRN [id number]) Lumbar Spine Range of Motion Lumbar Spine Active Degrees Testing Position Standing Flexion 70 Extension 15 Rotation Left 45 Rotation Right 45 Lateral Flexion Left 20 Lateral Flexion Right 18 Hip Goniometric Range of Motion Hip Right Passive Testing Position Supine Internal Rotation 35 External Rotation 70 Left Passive Testing Position Supine Internal Rotation 45 External Rotation 30 Comments Hip started to come out of joint at ~30 deg's active ROM. PT-OP-M Strength Start: 07/05/23 16:17 Freq: Status: Active Protocol: Document 07/10/23 07:32 LRN (Rec: 07/10/23 08:20 LRN [id number]) Hip Strength Hip Manual Muscle Testing Right Comments Strength is 5/5 Left Comments Strength is 5/5 PT-OP-Q Treatments Start: 07/05/23 16:17 Freq: Status: Active Protocol: Document 08/28/23 10:37 LRN (Rec: 08/28/23 11:18 LRN [id number]) Therapeutic Exercises Supine Exercises Happy Baby Pose Supine Exercise Name Happy Baby Pose Reps/Minutes 5' (stretched at 2 diff times) Comments Cued to breath through stretch Sitting Exercises Hip AD stretch Sitting Exercise Name SL on plinth inner thigh stretch Side bilateral Reps/Minutes 5' Comments Cued to breath through stretch Other Exercises Child's pose Other Exercise Name Child's Pose Reps/Minutes 3' Comments Cued for breathing. Manual Therapy Treatment Soft Tissue Mobilization PF Body Location PF superficial and deep muscle stretching Mobilization Type Trigger Point Release Intensity/Depth Superficial to moderate Body Position Hooklying Comments TrP: in 4-11 of PF clock. Pressure lessened as needed to avoid bowel mvmt onset or pain in L hip and quivering in R hip. 9 O'Clock after release pt reported raw feeling, no pain at end of treatment. Abdomen Body Location Abdomen Super<>INfer, and side to side. Mobilization Type Manual Lymphatic Drainage Intensity/Depth Moderate Body Position Supine Comments Pain with distraction on L side. Self-Care/Home Management Treatment Education Other Education Educated pt in proper body mechanics and body mechanics for ADLs. Activities Self-Care/Home Management Activities Issued handouts for proper body mechanics and body mechanics for ADLs. PT-OP-T Assessment and Plan Start: 07/05/23 16:17 Freq: Status: Active Protocol: Document 08/28/23 10:37 LRN (Rec: 08/28/23 11:18 LRN [id number]) Physical Therapy Assessment Goals Three Impairment Pt uses a daily light pad and menstrual maxi-pad on bad days . Short Term Goal (STG) Pt will be educated in vulvar and genital care and difference between menstrual and urinary incontinence pads. STG Duration 4 wks-08/07/23 (08/17/23: MET GOAL) Row Boss Hoeing Goal (LTG) PF stretching to improve ability to contract posterior and anterior PF to reduce urinary and fecal leakage. 08/10/23: Pt tols PF stretching. Issued small wand for HEP: PF stretching. 08/28/23: Able to manage urinary/fecal leakage. If does her routine she has no urinary/fecal leakage. LTG Duration 12 wks-10/05/23 (08/28/23: MET GOAL). Two Impairment Cystocele grade 3 in supine Short Term Goal (STG) Pt will be educated in proper transfers to lessen core abdominal pressure and proper posture (sit/stand). STG Duration 4 wks-08/07/23 (07/31/23: MET GOAL) Prison Goal (LTG) -to strengthen the PF to reduce heaviness feeling and regain control of bladder. 08/28/23: No heaviness and no urinary leakage when doing her HEP. LTG Duration 12 wks-10/05/23 (08/28/23: MET GOAL). One Impairment Pt lacks an independent self care HEP. Short Term Goal (STG) Pt will be educated in self abdominal STM and PF stretching with wand. 07/17/23: Bowel massage issued. 07/31/23: Review of bowel massage. 08/10/23: Issued small wand for home PF stretch. STG Duration 4 wks-08/07/23 (08/10/23: MET GOAL) Prison Goal (LTG) Pt will be independent in a self care HEP for PF/trunk and hips (except L hip ER) stretching and strengthening ex's. 07/24/23: I/S pt in HEP: Happy Baby Pose, Child's Pose & Hip AD stretch. 07/31/23: Issued handouts for : Squatty Potty chair, ILU bowel massage, & proper sit/ stand posture and bed mobility with breath for core pressure management. LTG Duration 12 wks-10/05/23 progressed 07/31/23 Assessment Summary Assessment 38 yo female with soft tissue PF tightness, bladder prolapse grade 3, and minimal bulge from rectal prolapse, initially difficult to assess. Pt abdominal pelvic pain/ heaviness and urinary/fecal leakage resolved as long as she can keep her bowel movements regular. PF and abdominal tenderness is persists; therefore further manual therapy is needed to reduce trP pain and soft tissue tightness. Physical Therapy Plan Frequency and Duration Frequency of Treatment 1x/Week Duration of treatment (weeks) 12 Plan of Care Start Date 07/10/23 Plan of Care End Date 10/05/23 Next Visit Focus/Plan Next Note Type Treatment Note Next Visit Plan Latex allergy. (wgt 160, pt not monitoring wgt). Request pt brings wand in for further self PF stretched training. Assess cystocele/ rectocele and cont gentle PF stretching. Relaxation of PF after Kegel. Manual: abdominal soft tissue (bladder/urachus) mobility (L trunk > R trunk). If needed: Posterior PF assessment ( rectal assess) Ther ex/HEP: Core/hip stabilization strengthening, improve hip mobility (except L hip ER), POC: Pt education, Manual therapy. ? Biofeedback with vaginal sensor. Therapeutic Exercises, Therapeutic Activities, Neuromuscular Reeducation.
--- NOTE | 2023-09-04 16:28 | PT.OTN ---
Current Diagnoses Cystocele, unspecified (09/04/23) Unspecified urinary incontinence (09/04/23) Physical Therapy Treatment Note PT-OP-A Visit Information Start: 07/05/23 16:17 Freq: Status: Active Protocol: Document 09/04/23 07:34 LRN (Rec: 09/04/23 08:19 LRN [id number]) Out-Patient Physical Therapy Visit Information Visit Information Visit Type Treatment Note Visit Start Time 07:34 Visit Stop Time 08:13 Visit Number 1 Evaluation Information Evaluation Date 07/10/23 Precautions Precautions Latex Tape Allergy, L hip pops out with hip ER, Depression, Celiac Disease, Endometriosis, hysterectomy ( retained overaries), Fibromyalgia, Dizziness that failed vestibular treatment, 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 Wgt not mentioned due to her history of eating disorder. PT-OP-B Current Condition Start: 07/05/23 16:17 Freq: Status: Active Protocol: Document 07/10/23 07:32 LRN (Rec: 07/10/23 08:20 LRN [id number]) Current Condition History of Current Condition Onset Date Urinary incontinence-2006, Bladder prolapse-2022 Current Complaints Urinary incontinence and Vaginal Prolapse felt History of Current Condition Urinary incontinence (2006) was manageable until last year diagnosed with Bladder Prolpase (02/2023). Pt reports history of celiac disease and that GI issues have worsened as late. She is now having to push her bladder back up. 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 The pt is sent to PT before doing anything surgical. Now having constant heaviness in pelvic floor, previously it was intermittent. In the past 4-5 yrs has been having watery fecal leakage, possibly from hemorrhoids. Prior Treatments and Tests PT for GI issues ~ 4 ys ago ( records indicate PT in 11/29/20 ). Developmental History Developmental History 2 births/3 pregnancies, vaginal births (2006, 2008). first took a long time ( 36 hrs) but no tearing. Celiac Disease diagnosed 2012 but has had it since childhood (severe abdominal cramping) and history of endometriosis, as found when did hyste in 2021. Treatment Goals Patient/Caregiver Goals Pt goals is: -to strengthen the PF to reduce heaviness feeling and regain control of bladder. -wear menstrual maxi-pads if having a bad day, and light pads daily. Personal Factors Other Personal Factors That May Effect L hip dysfunction (limited in Therapy/Recovery ER due to hip jt instability), Celiac disease, Endometriosis , Fibromyalgia, Depression, Dizziness intermittent with walking, sitting up too fast or laying down on R side. PT-OP-C Subjective Start: 07/05/23 16:17 Freq: Status: Active Protocol: Document 09/04/23 07:34 LRN (Rec: 09/04/23 08:19 LRN [id number]) OP-PT Subjective Patient Comments Patient Comments States after last session her bladder has been in spasm and pain with urination. Pain vaginally sitting and constipated for 3 days. After having BM the pain with urination seemed less. States she has stopped taking cranberry pills due to taking new ADD meds. Having slight pain at urethra opening in sitting. Has pain with walking after urination. PT-OP-I Pelvic Floor Start: 07/05/23 16:17 Freq: Status: Active Protocol: Document 08/28/23 10:37 LRN (Rec: 08/28/23 11:18 LRN [id number]) Pelvic Floor Assessment Pelvic Clock Pelvic Clock 12-3 Tenderness Pelvic Clock 3-6 Tenderness Pelvic Clock 6-9 Tenderness Pelvic Clock 9-12 Tenderness Pelvic Clock Other Swollen on L side PT-OP-J Posture/Palpation/Skin Start: 07/05/23 16:17 Freq: Status: Active Protocol: Document 07/10/23 07:32 LRN (Rec: 07/10/23 08:20 LRN [id number]) Posture Evaluation Position Standing Head/C-Spine Posture Side Bent Left,Forward Head L-Spine Posture Decreased Lordosis Shoulder Posture (L) Elevated Scapula Posture (L) Retracted Arm Posture (L) Neutral,(R) Neutral Pelvis Posture Neutral,(L) Iliac Crest Superior,(L) PSIS Inferior Knee Posture (L) Genu Valgus,(R) Genu Valgus Foot Arch (L) No Arch,(R) No Arch Comments Posture Comments Holds L hip in neutral ( purposeful IR) because L femur pops out if not keeping it in neutral, L PSIS is low/ L ASIS is high (L innominate posteriorly rotated). PT-OP-K Range of Motion Start: 07/05/23 16:17 Freq: Status: Active Protocol: Document 07/10/23 07:32 LRN (Rec: 07/10/23 08:20 LRN [id number]) Lumbar Spine Range of Motion Lumbar Spine Active Degrees Testing Position Standing Flexion 70 Extension 15 Rotation Left 45 Rotation Right 45 Lateral Flexion Left 20 Lateral Flexion Right 18 Hip Goniometric Range of Motion Hip Right Passive Testing Position Supine Internal Rotation 35 External Rotation 70 Left Passive Testing Position Supine Internal Rotation 45 External Rotation 30 Comments Hip started to come out of joint at ~30 deg's active ROM. PT-OP-M Strength Start: 07/05/23 16:17 Freq: Status: Active Protocol: Document 07/10/23 07:32 LRN (Rec: 07/10/23 08:20 LRN [id number]) Hip Strength Hip Manual Muscle Testing Right Comments Strength is 5/5 Left Comments Strength is 5/5 PT-OP-Q Treatments Start: 07/05/23 16:17 Freq: Status: Active Protocol: Document 09/04/23 07:34 LRN (Rec: 09/04/23 08:19 LRN [id number]) Therapeutic Exercises Supine Exercises Hip ER stretch Supine Exercise Name Fig 4 stretch Side left Reps/Minutes 3' Comments Extra time for training and to determine max kingsley stretch Hip IR stretch Supine Exercise Name Piriformis stretch (knee over ankle>KTC & knee to opp shdr) Side right Reps/Minutes 6' Comments Extra time for training and to determine max kingsley stretch Happy Baby Pose Supine Exercise Name Happy Baby Pose Reps/Minutes 5' (stretched at 2 diff times) Comments Cued to breath through stretch Sitting Exercises Hip ER stretch Sitting Exercise Name Fig 4 sitting stretch Side left Reps/Minutes 3' Comments Extra time for training and to determine max kingsley stretch Hip AD stretch Sitting Exercise Name SL on plinth inner thigh stretch Side bilateral Reps/Minutes 5' Comments Cued to breath through stretch Other Exercises Kegel stretch w/breath Other Exercise Name PF stretch on inhale , relax on exhale Reps/Minutes 10x Comments Done in standing due to pain in urethra with sitting Trunk Rot Other Exercise Name Trunk Rot Side right Reps/Minutes R x 2, Lx 1 Child's pose Other Exercise Name Child's Pose Reps/Minutes 3' Comments Cued for breathing. Manual Therapy Treatment Soft Tissue Mobilization Abdomen Body Location Abdomen to R & CCW and knee rolls L. Mobilization Type Myofascial Release Intensity/Depth Moderate Body Position Supine Comments Pain with distraction on L side. Self-Care/Home Management Treatment Education Patient Education Home Exercise Program Activities Self-Care/Home Management Activities Issued & reviewed HEP: R hip IR stretch (piriformis & lateral hip), L hip ER stretch (Fig 4 in sit and supine). PT-OP-T Assessment and Plan Start: 07/05/23 16:17 Freq: Status: Active Protocol: Document 09/04/23 07:34 LRN (Rec: 09/04/23 08:19 LRN [id number]) Physical Therapy Assessment Goals Three Impairment Pt uses a daily light pad and menstrual maxi-pad on bad days . Short Term Goal (STG) Pt will be educated in vulvar and genital care and difference between menstrual and urinary incontinence pads. STG Duration 4 wks-08/07/23 (08/17/23: MET GOAL) Environmental Engineer Scientist Goal (LTG) PF stretching to improve ability to contract posterior and anterior PF to reduce urinary and fecal leakage. 08/10/23: Pt tols PF stretching. Issued small wand for HEP: PF stretching. 08/28/23: Able to manage urinary/fecal leakage. If does her routine she has no urinary/fecal leakage. LTG Duration 12 wks-10/05/23 (08/28/23: MET GOAL). Two Impairment Cystocele grade 3 in supine Short Term Goal (STG) Pt will be educated in proper transfers to lessen core abdominal pressure and proper posture (sit/stand). STG Duration 4 wks-08/07/23 (07/31/23: MET GOAL) Environmental Engineer Scientist Goal (LTG) -to strengthen the PF to reduce heaviness feeling and regain control of bladder. 08/28/23: No heaviness and no urinary leakage when doing her HEP. LTG Duration 12 wks-10/05/23 (08/28/23: MET GOAL). One Impairment Pt lacks an independent self care HEP. Short Term Goal (STG) Pt will be educated in self abdominal STM and PF stretching with wand. 07/17/23: Bowel massage issued. 07/31/23: Review of bowel massage. 08/10/23: Issued small wand for home PF stretch. STG Duration 4 wks-08/07/23 (08/10/23: MET GOAL) Fci Goal (LTG) Pt will be independent in a self care HEP for PF/trunk and hips (except L hip ER) stretching and strengthening ex's. 07/24/23: I/S pt in HEP: Happy Baby Pose, Child's Pose & Hip AD stretch. 07/31/23: Issued handouts for : Squatty Potty chair, ILU bowel massage, & proper sit/ stand posture and bed mobility with breath for core pressure management. 09/04/23: HEP: R Hip IR & L hip ER stretch, I/S standing R trunk rot. LTG Duration 12 wks-10/05/23 progressed 09/04/23 Assessment Summary Assessment 38 yo female, initially with soft tissue PF tightness, bladder prolapse grade 3, and minimal bulge from rectal prolapse, and abdominal pelvic pain/heaviness and urinary/ fecal leakage, that is resolved (as long as she can keep her bowel movements regular). Today she is having pain with after urination and is tender at area of bladder in abdomen. Pt tolerated abdominal stretch with improved R trunk rot. Not able to stretch PF due to possible UTI. Physical Therapy Plan Frequency and Duration Frequency of Treatment 1x/Week Duration of treatment (weeks) 12 Plan of Care Start Date 07/10/23 Plan of Care End Date 10/05/23 Next Visit Focus/Plan Next Note Type Treatment Note Next Visit Plan Latex allergy. (wgt 160, pt not monitoring wgt). Next: Add HEP: Trunk Rot R>L, and start core strengthening (rot) if tolerated. Request pt brings wand in for further self PF stretched training. Assess cystocele/ rectocele and cont gentle PF stretching. Relaxation of PF after Kegel. Manual: abdominal soft tissue (bladder/urachus) mobility (L trunk > R trunk). If needed: Posterior PF assessment ( rectal assess) Ther ex/HEP: Core/hip stabilization strengthening, improve hip mobility (except L hip ER), POC: Pt education, Manual therapy. ? Biofeedback with vaginal sensor. Therapeutic Exercises, Therapeutic Activities, Neuromuscular Reeducation.
--- NOTE | 2023-09-11 08:06 | PT-OP ANOTE ---
Per phone pt reports she forgot her appt, has been on a new ADHD medication affecting her. States she has that her next appt is 09/25/23. Pt very apologetic.
--- NOTE | 2023-09-25 11:10 | PT.OTN ---
Current Diagnoses Cystocele, unspecified (09/25/23) Unspecified urinary incontinence (09/25/23) Physical Therapy Treatment Note PT-OP-A Visit Information Start: 07/05/23 16:17 Freq: Status: Active Protocol: Document 09/25/23 07:31 LRN (Rec: 09/25/23 08:22 LRN [id number]) Out-Patient Physical Therapy Visit Information Visit Information Visit Type Treatment Note Visit Start Time 07:31 Visit Stop Time 08:20 Visit Number 8 Evaluation Information Evaluation Date 07/10/23 Precautions Precautions Latex Tape Allergy, L hip pops out with hip ER, Depression, Celiac Disease, Endometriosis, hysterectomy ( retained overaries), Fibromyalgia, Dizziness that failed vestibular treatment, 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 Wgt not mentioned due to her history of eating disorder. PT-OP-B Current Condition Start: 07/05/23 16:17 Freq: Status: Active Protocol: Document 07/10/23 07:32 LRN (Rec: 07/10/23 08:20 LRN [id number]) Current Condition History of Current Condition Onset Date Urinary incontinence-2006, Bladder prolapse-2022 Current Complaints Urinary incontinence and Vaginal Prolapse felt History of Current Condition Urinary incontinence (2006) was manageable until last year diagnosed with Bladder Prolpase (02/2023). Pt reports history of celiac disease and that GI issues have worsened as late. She is now having to push her bladder back up. 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 The pt is sent to PT before doing anything surgical. Now having constant heaviness in pelvic floor, previously it was intermittent. In the past 4-5 yrs has been having watery fecal leakage, possibly from hemorrhoids. Prior Treatments and Tests PT for GI issues ~ 4 ys ago ( records indicate PT in 11/29/20 ). Developmental History Developmental History 2 births/3 pregnancies, vaginal births (2006, 2008). first took a long time ( 36 hrs) but no tearing. Celiac Disease diagnosed 2012 but has had it since childhood (severe abdominal cramping) and history of endometriosis, as found when did hyste in 2021. Treatment Goals Patient/Caregiver Goals Pt goals is: -to strengthen the PF to reduce heaviness feeling and regain control of bladder. -wear menstrual maxi-pads if having a bad day, and light pads daily. Personal Factors Other Personal Factors That May Effect L hip dysfunction (limited in Therapy/Recovery ER due to hip jt instability), Celiac disease, Endometriosis , Fibromyalgia, Depression, Dizziness intermittent with walking, sitting up too fast or laying down on R side. PT-OP-C Subjective Start: 07/05/23 16:17 Freq: Status: Active Protocol: Document 09/25/23 07:31 LRN (Rec: 09/25/23 08:22 LRN [id number]) OP-PT Subjective Patient Comments Patient Comments Heaviness feeling only if getting constipation, f/b leakage. Using maxipad when constipated and having leakage issues, uses daily liner for discharge issues. New med is making her urinate more. Vaginal prolpase is with constipation and straining and knows how to avoid the prolapse. PT-OP-I Pelvic Floor Start: 07/05/23 16:17 Freq: Status: Active Protocol: Document 09/25/23 07:31 LRN (Rec: 09/25/23 08:22 LRN [id number]) Pelvic Floor Assessment Pelvic Clock Pelvic Clock 12-3 Tenderness Pelvic Clock 3-6 Tenderness Pelvic Clock 6-9 Tenderness Pelvic Clock 9-12 Tenderness Prolapse Cystocele Grade 1 Perineal Descent Resting Absent Bearing Present Contraction Ability Voluntary Contraction Moderate Voluntary Relaxation Weak Manual Muscle Testing Left 5 Manual Muscle Testing Right 5 Manual Muscle Testing Anterior 5 Manual Muscle Testing Posterior 5 PT-OP-J Posture/Palpation/Skin Start: 07/05/23 16:17 Freq: Status: Active Protocol: Document 07/10/23 07:32 LRN (Rec: 07/10/23 08:20 LRN [id number]) Posture Evaluation Position Standing Head/C-Spine Posture Side Bent Left,Forward Head L-Spine Posture Decreased Lordosis Shoulder Posture (L) Elevated Scapula Posture (L) Retracted Arm Posture (L) Neutral,(R) Neutral Pelvis Posture Neutral,(L) Iliac Crest Superior,(L) PSIS Inferior Knee Posture (L) Genu Valgus,(R) Genu Valgus Foot Arch (L) No Arch,(R) No Arch Comments Posture Comments Holds L hip in neutral ( purposeful IR) because L femur pops out if not keeping it in neutral, L PSIS is low/ L ASIS is high (L innominate posteriorly rotated). PT-OP-K Range of Motion Start: 07/05/23 16:17 Freq: Status: Active Protocol: Document 09/25/23 07:31 LRN (Rec: 09/25/23 08:22 LRN [id number]) Lumbar Spine Range of Motion Lumbar Spine Active Degrees Testing Position Standing Rotation Left 25 Rotation Right 25 PT-OP-M Strength Start: 07/05/23 16:17 Freq: Status: Active Protocol: Document 07/10/23 07:32 LRN (Rec: 07/10/23 08:20 LRN [id number]) Hip Strength Hip Manual Muscle Testing Right Comments Strength is 5/5 Left Comments Strength is 5/5 PT-OP-Q Treatments Start: 07/05/23 16:17 Freq: Status: Active Protocol: Document 09/25/23 07:31 LRN (Rec: 09/25/23 08:22 LRN [id number]) Therapeutic Exercises Supine Exercises PF stretch w/breath Supine Exercise Name Reverse Kegel w/breath Reps/Minutes 3' Hip ER stretch Supine Exercise Name Fig 4 stretch Side left Reps/Minutes 3' Comments Extra time for training and to determine max kingsley stretch Hip IR stretch Supine Exercise Name Piriformis stretch (knee over ankle>KTC & knee to opp shdr) Side right Reps/Minutes 6' Comments Extra time for training and to determine max kingsley stretch Sitting Exercises Hip ER stretch Sitting Exercise Name Fig 4 sitting stretch Side left Reps/Minutes 3' Comments Extra time for training and to determine max kingsley stretch Hip AD stretch Sitting Exercise Name SL on plinth inner thigh stretch Side bilateral Reps/Minutes 5' Comments Cued to breath through stretch Standing Exercises Trunk Rot strengtheing Standing Exercise Name Trunk Rot w/breath Side bilateral Reps/Minutes 10x Comments Extra time for coordination of breath,tightening & PF relaxation btn exhale Other Exercises Thread the Needle Other Exercise Name Trunk rot stretch Side bilateral Reps/Minutes 3' Child's pose Other Exercise Name Child's Pose w/PF stretch and belly stretch with inhale, relax on exhale Reps/Minutes 3' Comments Cued for breathing, reverse kegel. Self-Care/Home Management Treatment Education Patient Education Home Exercise Program Other Education Discussed w/pt daily habits, drinking room temp water first in AM, and discussed her voiding habits and leakage if any. Activities Self-Care/Home Management Activities Issued & reviewed HEP: Trunk stretches: Supine twist, thread the needle, child's pose with breath/reverse Kegel & Sphinx. Trunk strengthening (TB): Rot. Issued L2 TB PT-OP-T Assessment and Plan Start: 07/05/23 16:17 Freq: Status: Active Protocol: Document 09/25/23 07:31 LRN (Rec: 09/25/23 08:22 LRN [id number]) Physical Therapy Assessment Goals Four Impairment Constipation Impairment Enema done once very painful. Short Term Goal (STG) Pt will be educated in norms for fluid intake for hydration and bowel care. STG Duration 4 wks-08/07/23 07/17/23: MET GOAL Retail Analytics Manager Goal (LTG) Pt will be independent with BM massage to promote daily BM's . 07/31/23: Issued handout for BM massage. Pt performed properly today f/b warm cup of water. 08/10/23: Pt having daily BMs . LTG Duration 12 wks-10/05/23 (08/10/23: MET GOAL) Three Impairment Pt uses a daily light pad and menstrual maxi-pad on bad days . Short Term Goal (STG) Pt will be educated in vulvar and genital care and difference between menstrual and urinary incontinence pads. STG Duration 4 wks-08/07/23 (08/17/23: MET GOAL) Senior Care Goal (LTG) PF stretching to improve ability to contract posterior and anterior PF to reduce urinary and fecal leakage. 08/10/23: Pt tols PF stretching. Issued small wand for HEP: PF stretching. 08/28/23: Able to manage urinary/fecal leakage. If does her routine she has no urinary/fecal leakage. LTG Duration 12 wks-10/05/23 (08/28/23: MET GOAL). Two Impairment Cystocele grade 3 in supine Short Term Goal (STG) Pt will be educated in proper transfers to lessen core abdominal pressure and proper posture (sit/stand). STG Duration 4 wks-08/07/23 (07/31/23: MET GOAL) Senior Care Goal (LTG) -to strengthen the PF to reduce heaviness feeling and regain control of bladder. 08/28/23: No heaviness and no urinary leakage when doing her HEP. LTG Duration 12 wks-10/05/23 (08/28/23: MET GOAL). One Impairment Pt lacks an independent self care HEP. Short Term Goal (STG) Pt will be educated in self abdominal STM and PF stretching with wand. 07/17/23: Bowel massage issued. 07/31/23: Review of bowel massage. 08/10/23: Issued small wand for home PF stretch. STG Duration 4 wks-08/07/23 (08/10/23: MET GOAL) Senior Care Goal (LTG) Pt will be independent in a self care HEP for PF/trunk and hips (except L hip ER) stretching and strengthening ex's. 07/24/23: I/S pt in HEP: Happy Baby Pose, Child's Pose & Hip AD stretch. 07/31/23: Issued handouts for : Squatty Potty chair, ILU bowel massage, & proper sit/ stand posture and bed mobility with breath for core pressure management. 09/04/23: HEP: R Hip IR & L hip ER stretch, I/S standing R trunk rot. 09/25/23: HEP: Trunk stretches: Supine twist, thread the needle, child's pose with breath/reverse Kegel & Sphinx. Trunk strengthening (TB): Rot. Issued L2 TB LTG Duration 12 wks-10/05/23 progressed 09/25/23 Assessment Summary Assessment 38 yo female, initially with soft tissue PF tightness, bladder prolapse grade 3, and minimal bulge from rectal prolapse, abdominal pelvic pain/heaviness and urinary/ fecal leakage, that is resolved (as long as she can keep her bowel movements regular). Today she reports pelvic pain/heaviness, urinary /fecal leakage only if constipated. She is able to describe self care method to for the most part prevent constipation, and what she needs to do if she becomes constipated. She is tender around the PF clock of the superficial ms (not deep ms). She demonstrates good contraction with relaxation ( with a very gentle reverse Kegel). Good tolerance to trunk rot stretching and ex; therefore is pt is independent with core flexibility and strengthening, then she should be ready for DC to her HEP next visit. Physical Therapy Plan Frequency and Duration Frequency of Treatment 1x/Week Duration of treatment (weeks) 12 Plan of Care Start Date 07/10/23 Plan of Care End Date 10/05/23 Next Visit Focus/Plan Next Note Type Treatment Note Next Visit Plan Latex allergy. (wgt 160, pt not monitoring wgt). Next: DC to HEP. Reviewd added HEP: Trunk Rot , and core strengthening (rot). Check hip mobility (except L hip ER) . Request pt brings wand in for further self PF stretch training (superficial ms). If time, Manual: abdominal soft tissue (bladder/urachus) mobility (L trunk > R trunk). POC: Pt education, Manual therapy. ? Biofeedback with vaginal sensor. Therapeutic Exercises, Therapeutic Activities, Neuromuscular Reeducation.
--- NOTE | 2023-10-02 08:26 | PT.OTN ---
Addendum entered and electronically signed by Patrizia Garner, PT 10/02/23 08:36: PUF Score 2 submitted post therapy. Original Note: Current Diagnoses Cystocele, unspecified (10/02/23) Unspecified urinary incontinence (10/02/23) Physical Therapy Treatment Note PT-OP-A Visit Information Start: 07/05/23 16:17 Freq: Status: Active Protocol: Document 10/02/23 07:31 LRN (Rec: 10/02/23 08:25 LRN [id number]) Out-Patient Physical Therapy Visit Information Visit Information Visit Type Treatment Note Visit Start Time 07:31 Visit Stop Time 08:11 Visit Number 9 Evaluation Information Evaluation Date 07/10/23 Precautions Precautions Latex Tape Allergy, L hip pops out with hip ER, Depression, Celiac Disease, Endometriosis, hysterectomy ( retained overaries), Fibromyalgia, Dizziness that failed vestibular treatment, 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 Wgt not mentioned due to her history of eating disorder. PT-OP-B Current Condition Start: 07/05/23 16:17 Freq: Status: Active Protocol: Document 07/10/23 07:32 LRN (Rec: 07/10/23 08:20 LRN [id number]) Current Condition History of Current Condition Onset Date Urinary incontinence-2006, Bladder prolapse-2022 Current Complaints Urinary incontinence and Vaginal Prolapse felt History of Current Condition Urinary incontinence (2006) was manageable until last year diagnosed with Bladder Prolpase (02/2023). Pt reports history of celiac disease and that GI issues have worsened as late. She is now having to push her bladder back up. 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 The pt is sent to PT before doing anything surgical. Now having constant heaviness in pelvic floor, previously it was intermittent. In the past 4-5 yrs has been having watery fecal leakage, possibly from hemorrhoids. Prior Treatments and Tests PT for GI issues ~ 4 ys ago ( records indicate PT in 11/29/20 ). Developmental History Developmental History 2 births/3 pregnancies, vaginal births (2006, 2008). first took a long time ( 36 hrs) but no tearing. Celiac Disease diagnosed 2012 but has had it since childhood (severe abdominal cramping) and history of endometriosis, as found when did hyste in 2021. Treatment Goals Patient/Caregiver Goals Pt goals is: -to strengthen the PF to reduce heaviness feeling and regain control of bladder. -wear menstrual maxi-pads if having a bad day, and light pads daily. Personal Factors Other Personal Factors That May Effect L hip dysfunction (limited in Therapy/Recovery ER due to hip jt instability), Celiac disease, Endometriosis , Fibromyalgia, Depression, Dizziness intermittent with walking, sitting up too fast or laying down on R side. PT-OP-C Subjective Start: 07/05/23 16:17 Freq: Status: Active Protocol: Document 10/02/23 07:31 LRN (Rec: 10/02/23 08:25 LRN [id number]) OP-PT Subjective Patient Comments Patient Comments Everything is the same. States cramping in lower abdominals today (period like cramping from left over ovaries). Has been doing PF stretch and lift with breath with thread the needle stretch . PT-OP-I Pelvic Floor Start: 07/05/23 16:17 Freq: Status: Active Protocol: Document 09/25/23 07:31 LRN (Rec: 09/25/23 08:22 LRN [id number]) Pelvic Floor Assessment Pelvic Clock Pelvic Clock 12-3 Tenderness Pelvic Clock 3-6 Tenderness Pelvic Clock 6-9 Tenderness Pelvic Clock 9-12 Tenderness Prolapse Cystocele Grade 1 Perineal Descent Resting Absent Bearing Present Contraction Ability Voluntary Contraction Moderate Voluntary Relaxation Weak Manual Muscle Testing Left 5 Manual Muscle Testing Right 5 Manual Muscle Testing Anterior 5 Manual Muscle Testing Posterior 5 PT-OP-J Posture/Palpation/Skin Start: 07/05/23 16:17 Freq: Status: Active Protocol: Document 07/10/23 07:32 LRN (Rec: 07/10/23 08:20 LRN [id number]) Posture Evaluation Position Standing Head/C-Spine Posture Side Bent Left,Forward Head L-Spine Posture Decreased Lordosis Shoulder Posture (L) Elevated Scapula Posture (L) Retracted Arm Posture (L) Neutral,(R) Neutral Pelvis Posture Neutral,(L) Iliac Crest Superior,(L) PSIS Inferior Knee Posture (L) Genu Valgus,(R) Genu Valgus Foot Arch (L) No Arch,(R) No Arch Comments Posture Comments Holds L hip in neutral ( purposeful IR) because L femur pops out if not keeping it in neutral, L PSIS is low/ L ASIS is high (L innominate posteriorly rotated). PT-OP-K Range of Motion Start: 07/05/23 16:17 Freq: Status: Active Protocol: Document 10/02/23 07:31 LRN (Rec: 10/02/23 08:25 LRN [id number]) Hip Goniometric Range of Motion Hip Right Passive Testing Position Supine Internal Rotation 35 External Rotation 70 Left Passive Testing Position Supine Internal Rotation 45 External Rotation 65 Comments Hip started to come out of joint at ~30 deg's active ROM. PT-OP-M Strength Start: 07/05/23 16:17 Freq: Status: Active Protocol: Document 07/10/23 07:32 LRN (Rec: 07/10/23 08:20 LRN [id number]) Hip Strength Hip Manual Muscle Testing Right Comments Strength is 5/5 Left Comments Strength is 5/5 PT-OP-Q Treatments Start: 07/05/23 16:17 Freq: Status: Active Protocol: Document 10/02/23 07:31 LRN (Rec: 10/02/23 08:25 LRN [id number]) Therapeutic Exercises Supine Exercises Lateral Hip stretch Supine Exercise Name Lateral Hip stretch Side right Reps/Minutes 2' Hip ER stretch Supine Exercise Name Fig 4 stretch Side left Reps/Minutes 3' Comments PROM taken Hip IR stretch Supine Exercise Name Piriformis stretch (knee over ankle>KTC & knee to opp shdr) Side right Reps/Minutes 4' Comments Cued proper mvmt for both stretches. PROM taken Happy Baby Pose Supine Exercise Name Happy Baby Pose Reps/Minutes 2' Comments Cued to breath through stretch Sitting Exercises Hip ER stretch Sitting Exercise Name Fig 4 sitting stretch Side left Reps/Minutes 3' Comments Extra time for training and to determine max kingsley stretch Hip AD stretch Sitting Exercise Name SL on plinth inner thigh stretch Side bilateral Reps/Minutes 4' Comments Cued to breath through stretch Standing Exercises Trunk Rot strengtheing Standing Exercise Name Trunk Rot w/breath Side bilateral Reps/Minutes 10x Comments Cuing for coordination of breath,tightening & PF relaxation btn exhale Other Exercises Pt ex's needing review Other Exercise Name Standing quick trunk rotation (see below), and trunk lateral shifts Equipment Used Rot (elbows flexed w/hands to shoulders) & arms out to sides Reps/Minutes 3' Thread the Needle Other Exercise Name Trunk rot stretch Side bilateral Reps/Minutes 3' Child's pose Other Exercise Name Child's Pose w/PF stretch and belly stretch with inhale Reps/Minutes 2' Comments Cued for breathing, reverse kegel. Self-Care/Home Management Treatment Education Other Education Discussed continuation of HEP and how to maintain with program minimally 2-3x/week. Discussed how she could treat abdominal cramping (MH and lower abdominal stretch and self lift). PT-OP-T Assessment and Plan Start: 07/05/23 16:17 Freq: Status: Active Protocol: Document 10/02/23 07:31 LRN (Rec: 10/02/23 08:25 LRN [id number]) Physical Therapy Assessment Goals Four Impairment Constipation Impairment Enema done once very painful. Short Term Goal (STG) Pt will be educated in norms for fluid intake for hydration and bowel care. STG Duration 4 wks-08/07/23 07/17/23: MET GOAL Surveillance Specialist Goal (LTG) Pt will be independent with BM massage to promote daily BM's . 07/31/23: Issued handout for BM massage. Pt performed properly today f/b warm cup of water. 08/10/23: Pt having daily BMs . LTG Duration 12 wks-10/05/23 (08/10/23: MET GOAL) Three Impairment Pt uses a daily light pad and menstrual maxi-pad on bad days . Short Term Goal (STG) Pt will be educated in vulvar and genital care and difference between menstrual and urinary incontinence pads. STG Duration 4 wks-08/07/23 (08/17/23: MET GOAL) Shelter Goal (LTG) PF stretching to improve ability to contract posterior and anterior PF to reduce urinary and fecal leakage. 08/10/23: Pt tols PF stretching. Issued small wand for HEP: PF stretching. 08/28/23: Able to manage urinary/fecal leakage. If does her routine she has no urinary/fecal leakage. LTG Duration 12 wks-10/05/23 (08/28/23: MET GOAL). Two Impairment Cystocele grade 3 in supine Short Term Goal (STG) Pt will be educated in proper transfers to lessen core abdominal pressure and proper posture (sit/stand). STG Duration 4 wks-08/07/23 (07/31/23: MET GOAL) Surveillance Specialist Goal (LTG) -to strengthen the PF to reduce heaviness feeling and regain control of bladder. 08/28/23: No heaviness and no urinary leakage when doing her HEP. LTG Duration 12 wks-10/05/23 (08/28/23: MET GOAL). One Impairment Pt lacks an independent self care HEP. Short Term Goal (STG) Pt will be educated in self abdominal STM and PF stretching with wand. 07/17/23: Bowel massage issued. 07/31/23: Review of bowel massage. 08/10/23: Issued small wand for home PF stretch. STG Duration 4 wks-08/07/23 (08/10/23: MET GOAL) Shelter Goal (LTG) Pt will be independent in a self care HEP for PF/trunk and hips (except L hip ER) stretching and strengthening ex's. 07/24/23: I/S pt in HEP: Happy Baby Pose, Child's Pose & Hip AD stretch. 07/31/23: Issued handouts for : Squatty Potty chair, ILU bowel massage, & proper sit/ stand posture and bed mobility with breath for core pressure management. 09/04/23: HEP: R Hip IR & L hip ER stretch, I/S standing R trunk rot. 09/25/23: HEP: Trunk stretches: Supine twist, thread the needle, child's pose with breath/reverse Kegel & Sphinx. Trunk strengthening (TB): Rot. Issued L2 TB LTG Duration 12 wks-10/05/23 (10/02/23: MET GOAL) Assessment Summary Assessment Pt is a 38 yo female, initially with soft tissue PF tightness, bladder prolapse grade 3, and minimal bulge from rectal prolapse, abdominal pelvic pain/ heaviness and urinary/fecal leakage. Her bladder prolapse is grade 1, and her abdominal pelvic pain/heaviness and urinary/fecal leakage has resolved as long as she can keep her bowel movements regular. She returns today with good recall of her HEP and good understanding of how to maintain her condition with diet/fluids & exercise. She needed review of times to ex for maintaining and proper positioning for trunk rot strengthening exercise; otherwise is independent. Jil jose crooks met her goals and is ready to be discharged to her self care HEP today. Physical Therapy Plan Discharge Physical Therapy Discharge Reasons Goals Met Discharge Comments Jil has been a pleasure to work with and I would be happy to work with this pleasant individual again if needed. Thank you for your referral.
== END 2023-10-03 11:36 ==
LOC: PHYS 07:30
PROVIDERS: Family Provider Nurse Practitioner; PCP Nurse Practitioner; Referring Provider Specialist; Visit Provider Specialist
DX: R32 Unspecified urinary incontinence (principal); N81.10 Cystocele, unspecified
CPT/HCPCS: 97110; 97112; 97140; 97162; 97535

== ENCOUNTER → 2023-10-03 15:35 | Outpatient (CLI) | payer OTHER, SELFPAY ==
[2023-09-04 10:48] VITALS: BMI 33.5
[2023-10-03 17:15] LABS: Vitamin B12 204 pg/mL (239-931)
== END ==
PROVIDERS: Family Provider Nurse Practitioner; PCP Nurse Practitioner; Referring Provider Physician Assistant; Visit Provider Physician Assistant
DX: L29.9 Pruritus, unspecified (principal)
CPT/HCPCS: 36415; 82607

== ENCOUNTER → 2023-12-06 08:37 | Outpatient (CLI) | payer OTHER, SELFPAY ==
[2023-09-04 10:48] VITALS: BMI 33.5
[2023-12-06 09:06] LABS: Hematocrit 38.2 % (36-46); Mean Corpuscular HGB Conc 34.1 % (30-36); Mean Corpuscular Hemoglobin 31.3 PG (26-34); Mean Corpuscular Volume 91.8 fL (80-100); Platelet Count 242 X10^3/uL (150-400); Red Blood Cell Count 4.16 X10^6/uL (4.0-5.2); Red Cell Distribution Width 13.5 % (11.6-14.8); White Blood Cell Count 4.9 X10^3/uL (4.5-11.0)
[2023-12-06 10:09] LABS: Vitamin B12 649 pg/mL (239-931)
[2023-12-06 14:18] LABS: Neutrophils Absolute Manual 2646 /uL (3000-5900); RBC Morphology Normal Morphology; Total Cells Counted 100
== END ==
PROVIDERS: Family Provider Nurse Practitioner; PCP Nurse Practitioner; Referring Provider Nurse Practitioner; Visit Provider Nurse Practitioner
DX: E53.8 Deficiency of other specified B group vitamins (principal)
CPT/HCPCS: 36415; 82607; 85025

== ENCOUNTER → 2023-12-24 14:59 | Outpatient (CLI) | payer OTHER, SELFPAY ==
[2023-09-04 10:48] VITALS: BMI 33.5
[2023-12-24 15:49] LABS: Add Manual Diff / Slide Review NO; Basophils Absolute Auto 0 /uL (0-100); Basophils Percent Auto 0.4 % (0-2); Eosinophils Absolute Auto 300 /uL (0-450); Eosinophils Percent Auto 4.2 % (2-4); Hematocrit 38.9 % (36-46); Hemoglobin 13.2 g/dL (12.0-16.0); Lymphocytes Absolute Auto 1300 /uL (1100-4500); Lymphocytes Percent Auto 19.7 % (25-40); Mean Corpuscular HGB Conc 33.9 % (30-36); Mean Corpuscular Hemoglobin 30.9 PG (26-34); Mean Corpuscular Volume 91.1 fL (80-100); Monocytes Absolute Auto 500 /uL (0-900); Neutrophils Absolute Auto 4500 /uL (1500-7000); Neutrophils Percent Auto 67.7 % (50-75); Platelet Count 214 X10^3/uL (150-400); Red Blood Cell Count 4.27 X10^6/uL (4.0-5.2); Red Cell Distribution Width 13.6 % (11.6-14.8); White Blood Cell Count 6.7 X10^3/uL (4.5-11.0)
[2023-12-24 16:05] LABS: Erythrocyte Sedimentation Rate 7 MM/HR (0-20)
[2023-12-24 16:18] LABS: HEMOLYSIS < 15 (0-50); Iron 69 ug/dL (37-170)
[2023-12-24 16:29] LABS: Alanine Aminotransferase 12 IU/L (<35); Albumin 4.2 g/dL (3.5-5.0); Albumin Globulin Ratio 1.3 (1.0-2.8); Alkaline Phosphatase 46 U/L (38-126); Aspartate Aminotransferase 22 IU/L (14-36); BUN Creatinine Ratio 22.1 (6-22); Bilirubin Total 0.7 mg/dL (0.2-1.3); Blood Urea Nitrogen 15 mg/dL (7-17); C-Reactive Protein Quant < 0.5 mg/dL (<1.0); Calcium 8.4 mg/dL (8.4-10.2); Carbon Dioxide 24 mmol/L (22-32); Chloride 108 mmol/L (98-107); Estimated Glomerular Filt Rate > 60 mL/min (>60); Globulin 3.3 g/dL (1.7-4.1); Glucose 71 mg/dL (70-100); HEMOLYSIS < 15 (0-50); Percent Iron Saturation 25 % (15-50); Sodium 140 mmol/L (137-145); Total Iron Binding Capacity 271 ug/dL (265-497); Total Protein 7.5 g/dL (6.3-8.2); Transferrin 208 mg/dL (206-381)
[2023-12-24 16:30] LABS: Rheumatoid Factor < 8.6 IU/mL (<12.0)
[2023-12-24 16:35] LABS: Vitamin D 25 Hydroxy (D3) 34.2 ng/mL (30.0-100.0)
[2023-12-24 17:14] LABS: Vitamin B12 357 pg/mL (239-931)
== END ==
PROVIDERS: Family Provider Nurse Practitioner; PCP Nurse Practitioner; Referring Provider Nurse Practitioner; Visit Provider Nurse Practitioner
DX: E53.8 Deficiency of other specified B group vitamins (principal); D50.9 Iron deficiency anemia, unspecified; E55.9 Vitamin D deficiency, unspecified; R42 Dizziness and giddiness; R20.2 Paresthesia of skin; M35.9 Systemic involvement of connective tissue, unspecified; M79.7 Fibromyalgia
CPT/HCPCS: 36415; 80053; 82306; 82607; 83540; 83550; 85025; 85651; 86038; 86140; 86430

== ENCOUNTER 2024-01-07 08:30 | Day surgery (SDC) | payer OTHER, SELFPAY ==
[2023-09-04 10:48] VITALS: BMI 33.5
[2024-01-01 15:04] VITALS: BMI 27.8
[2024-01-07] VITALS (12 sets, daily range): BP systolic 93–121; BP diastolic 53–82; PULSE 67–93; RESP 12–18; TEMP 35.7–36.6; O2SAT 98–100; BMI 27.8
--- NOTE | 2024-01-07 08:13 | SUR.OPER ---
Lithotomy on padded OR bed, head on pillow, arms secured on padded arm boards at <90 degrees abduction. Legs secured in padded yellow fins stirrups.
[2024-01-07] MEDS: LACTATED RINGERS 1,000 ML 42 ML IV (08:49)
[2024-01-07] MEDS: SCOPOLAMINE 1 PATCH TOP (08:50)
[2024-01-07] MEDS: ACETAMINOPHEN 325 MG TABLET 975 MG PO (08:50)
[2024-01-07] MEDS: FAMOTIDINE 20 MG/2 ML VIAL IV (08:50)
--- NOTE | 2024-01-07 09:06 | PM.PREOP ---
Pre-operative Note Interval Note History & Physical reviewed/Exam performed by Physician: Yes Changes to H&P: No
[2024-01-07] MEDS: CEFAZOLIN 2 GM/100 ML PREMIX 100 ML IV (09:40)
[2024-01-07] MEDS: BUPIVACAINE 0.5% W/ EPI (PF) 30 ML VIAL 10 ML INJ (10:05)
--- NOTE | 2024-01-07 10:36 | PM.OP.1 ---
Operative Date/Time/Diagnoses Date of procedure: 01/07/24 Time of procedure: 10:36 Pre-op diagnosis: Cervical prolapse with vaginal wall prolapse Post-op diagnosis: same Procedure & Clinicians Procedure: Sacrospinous ligament fixation Same procedure as scheduled: No (Initially scheduled for rectocele repair but was not necessary at the time ) Indications: Patient complaining of cervix prolapse and vaginal wall prolapse Surgeon: Silvia Cabrera Permastone Mechanic: Yvette Schneider Click Yes if Unassisted: No Anesthesia Type: General Operative Notes Findings: Cervical prolapse to 2 cm from the hymen with minimal cystocele and minimal rectocele Closure Type: primary Specimen(s): none sent Applied: catheter (Latex free Wang) Estimated Blood Loss (mL): 50 Blood products transfused: none Procedure in detail: Patient was brought to the operating room where she was placed in yellowfin stirrups and prepped and draped in the usual sterile fashion. A check system was reviewed prior to the beginning of the case. Pulsatile stockings were in place and functional throughout the case. Warming was in place. 2 g of Ancef were in prior to beginning of the case. A latex free Wang catheter was placed. The posterior vaginal wall was injected with 1% lidocaine with epinephrine. An incision was made with the scalpel. The dissection was undertaken laterally. 0 Prolene suture with the Capio passer was placed through the uterosacral ligament on the right side and sutured to the underside of the cervix. A 2nd suture of 0 Prolene was also placed through the uterosacral ligament and the underside of the cervix. A finger was placed in the rectum to be sure there were no sutures placed through the rectal mucosa. The uterosacral sutures were tightened down. After tightening the uterosacral sutures it was evident that there was not a significant rectocele and the vaginal incision was closed with 2-0 Vicryl suture. Vaginal packing was placed in the vagina and the Wang left in place. Complications: none Post-operative Condition: stable Disposition: observation (Vaginal packing and Wang will be removed in 6 hours) Plan for aftercare: Home after vaginal packing and Wang removed
[2024-01-07 12:19] LABS: PTT Partial Thromboplastin Tim 36 SECONDS (25.1-36.5)
[2024-01-07] MEDS: ACETAMINOPHEN 325 MG TABLET 650 MG PO (12:45)
[2024-01-07] MEDS: KETOROLAC 30 MG/ML VIAL IV (12:46)
[2024-01-07] MEDS: LACTATED RINGERS 1,000 ML 100 ML IV (12:47)
--- NOTE | 2024-01-07 14:02 | PC.NURSE ---
Patient has a rasheed pad in place with scant bleeding, and packing inserted in her vagina. She also has a bravo catheter putting out yellow urine. Given toradol and po tylenol for discomfort and is at bedside. She is hoping to be discharged later.
--- NOTE | 2024-01-07 16:23 | P.DS_ITS ---
History of Present Illness History of Present Illness Date Patient Seen: 01/07/24 Time Patient Seen: 16:23 Chief complaint: Colporrhaphy *OPB* Narrative: Patient underwent a sacrospinous ligament fixation earlier today. She had a Wang catheter and packing place which were removed after 6 hours. The packing had minimal blood on it. Patient is not having any significant pain. No nausea. Discharge Providers Provider Discharge Date: 01/07/24 Primary care physician: JAVY Albert Discharge provider: Silvia Cabrera MD Summary Hospital Course Discharge Diagnosis: Cervical and vaginal wall prolapse Hospital Course: Patient underwent sacrospinous ligament fixation on 01/07/2024. After the ligament fixation there was no significant rectocele so no additional treatment was necessary. The packing was removed and the patient is not having any significant bleeding. Status at Discharge Cognitive/behavioral status at discharge: oriented Functional status at discharge: independent ambulation (Patient not to be discharged until documents independent ambulation) Overall status at discharge: patient is progressing back to baseline Time Spent with Patient Time spent: Less than 30 minutes Exam Vital Signs (past 8 hours): - 01/07/24 09:07 01/07/24 10:33 01/07/24 10:37 Temperature 97.4 F L 97.9 F Pulse Rate 88 92 H 93 H Respiratory Rate 16 14 15 Blood Pressure 120/82 121/71 111/69 Pulse Oximetry 99 98 98 Oxygen Delivery Method Room Air Room Air Room Air Oxygen Flow Rate 01/07/24 10:42 01/07/24 10:47 01/07/24 10:57 Temperature 97.4 F L Pulse Rate 83 74 74 Respiratory Rate 12 15 15 Blood Pressure 110/67 106/70 107/68 Pulse Oximetry 100 100 100 Oxygen Delivery Method Room Air Room Air Room Air Oxygen Flow Rate 01/07/24 11:10 01/07/24 11:35 01/07/24 12:05 Temperature 96.2 F L 96.6 F L Pulse Rate 76 72 69 Respiratory Rate 14 18 16 Blood Pressure 112/71 120/77 113/68 Pulse Oximetry 100 98 99 Oxygen Delivery Method Room Air Oxygen Flow Rate 0 0 01/07/24 12:35 01/07/24 13:35 01/07/24 14:35 Temperature 97.5 F L Pulse Rate 67 84 79 Respiratory Rate 16 16 18 Blood Pressure 116/75 99/53 L 93/58 L Pulse Oximetry 100 98 98 Oxygen Delivery Method Oxygen Flow Rate 0 0 0 Oxygen Delivery Method Room Air Oxygen Flow Rate 0 Narrative Exam Narrative: Vaginal packing removed with minimal blood on it. Abdomen is soft nontender. Extremities without edema and nontender. Objective Labs Labs: Laboratory Results - last 24 hr 01/07/24 11:51 APTT 36 PFSH Medical History B12 deficiency ADD (attention deficit disorder) Chronic constipation Celiac disease History of endometriosis Vaginal prolapse Abnormal mammogram of left breast TMJ (dislocation of temporomandibular joint) Intractable migraine History of bulimia History of anorexia nervosa Body dysmorphic disorder Family history of endometriosis in first degree relative Migraine headache with aura Chronic pain Palpitations Dizziness Erythematous papules of skin Breast pain, left Lymphadenopathy, axillary 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 neuropathy Vision disorder Plantar warts Acne Allergies Bulimia Anxiety Anorexia nervosa Migraines Chicken pox Anemia Irregular menstrual cycle Heavy menstrual period Rectal prolapse Irritable bowel syndrome Gluten enteropathy Asthma with allergic rhinitis Surgical History History of hysterectomy (04/15/21) Anesthesia History of myringotomy (~1994) [place] teeth removed (~2010) S/P T&A (status post tonsillectomy and adenoidectomy) (~1990) History of elbow surgery (~2016) Family History Grandfather Cancer Grandmother Pneumonia Social History (Updated 02/07/21 @ 15:30 by Debby Meyers RN) marital status: number of children: 2 household members: spouse and children Smoking Status: Former smoker alcohol intake: current Discharge Assessment & Plan Assessment and Plan Assessment: Patient is status post sacrospinous ligament fixation on the right side. After the sacrospinous ligament fixation no rectocele was found. Vaginal packing and Wang removed. Plan of Treatment: Home when patient documents ability to ambulate without difficulty. Discharge Plan Discharge Plan Patient Disposition: Home Provider Discharge Comment: When ambulatory without symptoms Discharge orders & Medications Discharge Orders: Discharge (Order); Ordered 01/07/24 Ordered By: Silvia Cabrera Prescriptions: Continued epinephrine 0.3 mg/0.3 mL auto-injector 0.3 mg IM ONCE Qty: 2 1RF Rx Instructions: as a single dose omeprazole 20 mg capsule,delayed release(DR/EC) 20 mg PO DAILY oxycodone 5 mg tablet 5 mg PO Q4H PRN (Reason: pain) Qty: 20 0RF albuterol sulfate 90 mcg/actuation HFA aerosol inhaler 2 puff INHALATION BID PRN (Reason: Shortness Of Breath) Qty: 8.5 2RF ondansetron 4 mg tablet,disintegrating 4 mg PO Q6H PRN (Reason: nausea and vomiting) Qty: 30 3RF cyanocobalamin (vitamin B-12) 1,000 mcg/mL solution 1,000 mcg IM QMONTH Qty: 3 3RF Rx Instructions: Inject 1000mcg IM monthly mecobalamin (vitamin B12) 10,000 mcg recon soln See Rx Instructions .ROUTE .COMPLEX Qty: 3 3RF Rx Instructions: Inject 10,000 mcg IM monthly; Discontinued metronidazole 0.75 % gel 1 applic topical BID Qty: 45 0RF Follow up/Referrals: Aleja Argueta ARNP [Primary Care Provider] - Yvette Schneider MD [Physician] - 2 Weeks (Telehealth appointment in 2 weeks with postop appointment in 6 weeks the appointments are on 01/20 and 02/19, already scheduled) Diet/Activity/Treatments Diet: Regular Activity: Nothing in vagina or lifting over 20 lb for 6 weeks Skin/Wound/Dressing Care Report to your healthcare provider any signs of infection, such as:: chills, fever and increased pain Visit Report/Discharge Packet Stand Alone Forms: Patient Portal/API, Stroke Signs & Symptoms, Surgery Discharge Discharge Data Primary Care Provider: Aleja Argueta Attending Provider: Silvia Cabrera VTE Deep Vein Thrombosis/Pulmonary Embolism Present on Admission: No
== END 2024-01-07 17:12 | disposition home or self-care (01) ==
LOC: OR 08:30 → AC 08:31
PROVIDERS: Family Provider Nurse Practitioner; PCP Nurse Practitioner; Referring Provider Specialist; Visit Provider Specialist
PROC: (CPT 57282; principal; 2024-01-07 09:45)
DX: N81.85 Cervical stump prolapse (principal)
CPT/HCPCS: 57282; 81025; 85730; J0330; J0690; J1100; J1885; J2250; J2405; J2704; J3010

== ENCOUNTER 2024-01-08 11:22 | Emergency (ER) | payer OTHER, SELFPAY ==
[2024-01-07 11:39] VITALS: BMI 27.8
[2024-01-08] VITALS (12 sets, daily range): BP systolic 90–109; BP diastolic 52–73; PULSE 59–79; RESP 18; TEMP 36.6; O2SAT 96–100; BMI 27.8
[2024-01-08 13:02] LABS: Add Manual Diff / Slide Review NO; Basophils Absolute Auto 0 /uL (0-100); Basophils Percent Auto 0.4 % (0-2); Eosinophils Absolute Auto 200 /uL (0-450); Eosinophils Percent Auto 2.2 % (2-4); Hematocrit 37.5 % (36-46); Hemoglobin 12.8 g/dL (12.0-16.0); Lymphocytes Absolute Auto 1900 /uL (1100-4500); Lymphocytes Percent Auto 21.4 % (25-40); Mean Corpuscular HGB Conc 34.1 % (30-36); Mean Corpuscular Hemoglobin 31.3 PG (26-34); Mean Corpuscular Volume 91.9 fL (80-100); Monocytes Absolute Auto 800 /uL (0-900); Monocytes Percent Auto 8.6 % (3-14); Neutrophils Absolute Auto 5900 /uL (1500-7000); Neutrophils Percent Auto 67.4 % (50-75); Platelet Count 259 X10^3/uL (150-400); Red Blood Cell Count 4.08 X10^6/uL (4.0-5.2); Red Cell Distribution Width 13.3 % (11.6-14.8); White Blood Cell Count 8.8 X10^3/uL (4.5-11.0)
[2024-01-08 13:12] LABS: Alanine Aminotransferase 13 IU/L (<35); Albumin 4.1 g/dL (3.5-5.0); Albumin Globulin Ratio 1.5 (1.0-2.8); Alkaline Phosphatase 48 U/L (38-126); Aspartate Aminotransferase 21 IU/L (14-36); BUN Creatinine Ratio 15.5 (6-22); Bilirubin Total 1.2 mg/dL (0.2-1.3); Blood Urea Nitrogen 11 mg/dL (7-17); Calcium 8.2 mg/dL (8.4-10.2); Carbon Dioxide 25 mmol/L (22-32); Chloride 106 mmol/L (98-107); Estimated Glomerular Filt Rate > 60 mL/min (>60); Globulin 2.7 g/dL (1.7-4.1); Glucose 94 mg/dL (70-100); HEMOLYSIS < 15 (0-50); Lipase 77 U/L (23-300); Potassium 3.8 mmol/L (3.4-5.1); Sodium 138 mmol/L (137-145); Total Protein 6.8 g/dL (6.3-8.2)
[2024-01-08] MEDS: SODIUM CHLORIDE 0.9% 1,000 ML 1000 ML IV (16:02)
--- NOTE | 2024-01-08 16:54 | ED_ITS ---
HPI - Abdominal Pain General Chief Complaint: Abdominal Pain Stated Complaint: had surgery t-1, heard pop on back/syncope Time Seen by Provider: 01/08/24 15:57 Source: patient and family Mode of arrival: Wheelchair History of Present Illness HPI narrative: 38-year-old female presents by private vehicle from home for pelvic pain and dizziness. Patient underwent surgical fixation of partial vaginal prolapse with Dr. Cabrera 1 day ago. Patient states that she was recovering well at home when she coughed. She heard a pop and subsequently had pelvic pain. Patient states that she felt lightheaded and had a syncopal episode earlier this morning. Witnessed by spouse, did not hit head. She was advised by the OBGYN office to come to the emergency department for evaluation. Related Data Home Medications Medication Instructions Recorded Confirmed omeprazole 20 mg capsule,delayed 20 mg PO DAILY 12/24/23 01/07/24 release Previous Rx's Medication Instructions Recorded albuterol sulfate 90 mcg/actuation 2 puff inhalation BID PRN 08/31/22 aerosol inhaler Shortness Of Breath #8.5 grams epinephrine 0.3 mg/0.3 mL 0.3 mg (0.3 mL) IM ONCE #2 ea 07/16/23 injection, auto-injector ondansetron 4 mg disintegrating 4 mg PO Q6H PRN nausea and 08/16/23 tablet vomiting #30 tabs cyanocobalamin (vitamin B-12) 1,000 mcg IM QMONTH #3 mL 10/04/23 1,000 mcg/mL injection solution mecobalamin (vitamin B12) 10,000 See Rx Instructions .Route 12/24/23 mcg solution for injection .COMPLEX #3 ea oxycodone 5 mg tablet 5 mg PO Q4H PRN pain #20 tabs 12/24/23 Allergies Allergy/AdvReac Type Severity Reaction Status Date / Time bee venom protein (honey bee) Allergy Severe Had Verified 01/07/24 08:47 unusual reaction but not anaphylaxis Sulfa (Sulfonamide Allergy Severe Hives Verified 01/07/24 08:47 Antibiotics) cat dander Allergy Mild Verified 01/07/24 08:47 gluten Allergy Mild Verified 01/07/24 08:47 mold Allergy Mild Verified 01/07/24 08:47 latex Allergy Verified 01/07/24 08:47 methylphenidate AdvReac Intermediate Dysuria Verified 01/07/24 08:47 Patient History Medical History B12 deficiency ADD (attention deficit disorder) Chronic constipation Celiac disease History of endometriosis Vaginal prolapse Abnormal mammogram of left breast TMJ (dislocation of temporomandibular joint) Intractable migraine History of bulimia History of anorexia nervosa Body dysmorphic disorder Family history of endometriosis in first degree relative Migraine headache with aura Chronic pain Palpitations Dizziness Erythematous papules of skin Breast pain, left Lymphadenopathy, axillary 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 neuropathy Vision disorder Plantar warts Acne Allergies Bulimia Anxiety Anorexia nervosa Migraines Chicken pox Anemia Irregular menstrual cycle Heavy menstrual period Rectal prolapse Irritable bowel syndrome Gluten enteropathy Asthma with allergic rhinitis Surgical History History of hysterectomy (04/15/21) Anesthesia History of myringotomy (~1994) Balm teeth removed (~2010) S/P T&A (status post tonsillectomy and adenoidectomy) (~1990) History of elbow surgery (~2016) Family History Grandfather Cancer Grandmother Pneumonia Social History marital status: number of children: 2 household members: spouse and children Smoking Status: Former smoker alcohol intake: current Smoking Status: Former smoker alcohol intake frequency: 0-2 drinks per day Substance Use Type: does not use Exam Initial Vital Signs Initial Vital Signs: Vital Signs Temperature 98 F 01/08/24 11:25 Pulse Rate 79 01/08/24 11:25 Respiratory Rate 18 01/08/24 11:25 Blood Pressure 109/73 01/08/24 11:25 Pulse Oximetry 100 01/08/24 11:25 Oxygen Delivery Method Room Air 01/08/24 11:25 Const: Awake, alert, Uncomfortable, nontoxic Cardiac: regular rate, regular rhythm RESP: unlabored, clear bilaterally, no wheezing GI: Soft, nontender, nondistended, : 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, small amount of dark red clot at vaginal introitus, no speculum exam performed Skin: Warm, Dry, intact, no rashes Neuro: AO x3, CN II-XII grossly intact, moves all extremities Course Orders Ordered: Discontinued Medications Sodium Chloride (Normal Saline 0.9%) 1,000 mls @ 1,000 mls/hr IV BOLUS ONE Stop: 01/08/24 16:55 Last Infusion: 01/08/24 17:58 Dose: Infused Documented By: Admin: 01/08/24 16:02 Dose: 1,000 mls/hr Documented By: DARLINE Ketorolac Tromethamine (Ketorolac 30 Mg/Ml Vial) 15 mg IV NOW ONE Stop: 01/08/24 17:05 Last Admin: 01/08/24 17:22 Dose: 15 mg Documented By: DARLINE Ondansetron HCl (Ondansetron 4 Mg/2 Ml Inj) 4 mg IV NOW PRN PRN Reason: Nausea And Vomiting Ondansetron HCl (Ondansetron 4 Mg Odt) 4 mg PO NOW PRN PRN Reason: Nausea And Vomiting Vital Signs Vital signs: Vital Signs - 8 hr 01/08/24 11:25 01/08/24 15:45 01/08/24 15:46 Temperature 98 F Pulse Rate 79 Respiratory Rate 18 Blood Pressure 109/73 90/59 L Pulse Oximetry 100 100 Oxygen Delivery Method Room Air 01/08/24 15:46 01/08/24 15:50 01/08/24 15:50 Temperature Pulse Rate 63 63 Respiratory Rate Blood Pressure 107/58 L Pulse Oximetry 100 100 Oxygen Delivery Method 01/08/24 16:00 01/08/24 16:00 01/08/24 16:30 Temperature Pulse Rate 61 Respiratory Rate Blood Pressure 104/63 104/55 L Pulse Oximetry 100 Oxygen Delivery Method 01/08/24 16:30 01/08/24 17:01 01/08/24 17:02 Temperature Pulse Rate 59 L 68 63 Respiratory Rate Blood Pressure Pulse Oximetry 100 96 100 Oxygen Delivery Method 01/08/24 17:02 Temperature Pulse Rate Respiratory Rate Blood Pressure 96/52 L Pulse Oximetry Oxygen Delivery Method MDM - Abdominal Pain Lab Data 01/08/24 12:45 01/08/24 12:45 Labs: Lab Results 01/08/24 Range/Units 12:45 WBC 8.8 (4.5-11.0) X10^3/uL RBC 4.08 (4.0-5.2) X10^6/uL Hgb 12.8 (12.0-16.0) g/dL Hct 37.5 (36-46) % MCV 91.9 (80-100) fL MCH 31.3 (26-34) PG MCHC 34.1 (30-36) % RDW 13.3 (11.6-14.8) % Plt Count 259 (150-400) X10^3/uL Neut % (Auto) 67.4 (50-75) % Lymph % (Auto) 21.4 L (25-40) % Bollinger % (Auto) 8.6 (3-14) % Eos % (Auto) 2.2 (2-4) % Baso % (Auto) 0.4 (0-2) % Neut # (Auto) 5900 (1972-7777) /uL Lymph # (Auto) 1900 (5893-6123) /uL [place]linger # (Auto) 800 (0-900) /uL Eos # (Auto) 200 (0-450) /uL Baso # (Auto) 0 (0-100) /uL Sodium 138 (137-145) mmol/L Potassium 3.8 (3.4-5.1) mmol/L Chloride 106 (98-107) mmol/L Carbon Dioxide 25 (22-32) mmol/L BUN 11 (7-17) mg/dL Creatinine 0.71 (0.52-1.04) mg/dL Estimated GFR > 60 (>60) mL/min BUN/Creatinine Ratio 15.5 (6-22) Glucose 94 (70-100) mg/dL Calcium 8.2 L (8.4-10.2) mg/dL Total Bilirubin 1.2 (0.2-1.3) mg/dL AST 21 (14-36) IU/L ALT 13 (<35) IU/L Alkaline Phosphatase 48 (38-126) U/L Total Protein 6.8 (6.3-8.2) g/dL Albumin 4.1 (3.5-5.0) g/dL Globulin 2.7 (1.7-4.1) g/dL Albumin/Globulin Ratio 1.5 (1.0-2.8) Lipase 77 (23-300) U/L ECG Data Interpretation: sinus bradycardia at 58 beats per minute. Normal [place], no ST T wave changes, no STEMI MDM Narrative Medical decision making narrative: pelvic pain and a pop heard after coughing at home. External genital exam appears normal, there is a small dark red clot at the introitus without obvious active bleeding. Abdomen soft and nontender. Laboratory work shows stable hemoglobin from yesterday. Discussed case with on-call OBGYN doctor [place], who stated that when the patient called they were concerned based on her description of symptoms that she was having internal bleeding following her procedure. With a benign abdominal exam and minimal vaginal bleeding this is not seem to be the case. Vaginal prolapse surgical sites are well stitched with multiple backup sutures, so a single popped stitch should not cause any damage. with normal labs and normal EKG patient exam is otherwise reassuring. Patient counseled on lab results as well as OBGYN recommendations. Patient was relieved to know that she has not opened her surgical site and will follow up as scheduled following her procedure. Discharge Plan Departure Patient Disposition: Home Clinical Impression: Post-operative pain Instructions: DI for Pelvic Pain Activity Restrictions/Additional Instructions: Your laboratory work today is reassuring. Your hemoglobin today is 12.8, which is stable following your surgery. I spoke to OBGYN, told me that there were multiple sutures in your prolapse site and so there should be plenty of reinforcement. Continue to take your pain medications at home as scheduled. If you notice worsening bleeding or severe abdominal pain please return to the emergency department for repeat evaluation. Otherwise keep your postoperative follow up as scheduled. Prescriptions: No Action epinephrine 0.3 mg/0.3 mL auto-injector 0.3 mg IM ONCE Qty: 2 1RF Rx Instructions: as a single dose omeprazole 20 mg capsule,delayed release(DR/EC) 20 mg PO DAILY oxycodone 5 mg tablet 5 mg PO Q4H PRN (Reason: pain) Qty: 20 0RF albuterol sulfate 90 mcg/actuation HFA aerosol inhaler 2 puff INHALATION BID PRN (Reason: Shortness Of Breath) Qty: 8.5 2RF ondansetron 4 mg tablet,disintegrating 4 mg PO Q6H PRN (Reason: nausea and vomiting) Qty: 30 3RF cyanocobalamin (vitamin B-12) 1,000 mcg/mL solution 1,000 mcg IM QMONTH Qty: 3 3RF Rx Instructions: Inject 1000mcg IM monthly mecobalamin (vitamin B12) 10,000 mcg recon soln See Rx Instructions .ROUTE .COMPLEX Qty: 3 3RF Rx Instructions: Inject 10,000 mcg IM monthly; Referrals: Aleja Argueta ARNP [Primary Care Provider] - Stand Alone Forms: Patient Portal/API
--- NOTE | 2024-01-08 17:16 | EKG_ITS ---
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
[2024-01-08] MEDS: KETOROLAC 30 MG/ML VIAL 15 MG IV (17:22)
== END 2024-01-08 18:00 | disposition home or self-care (01) ==
PROVIDERS: Emergency Provider Emergency Medicine; Family Provider Nurse Practitioner; PCP Nurse Practitioner
DX: G89.18 Other acute postprocedural pain (principal); R10.2 Pelvic and perineal pain; Z87.42 Personal history of other diseases of the female genital tract
CPT/HCPCS: 36415; 80053; 83690; 85025; 93005; 96361; 96374; 99284; J1885

== ENCOUNTER → 2024-02-14 10:17 | Outpatient (CLI) | payer OTHER, SELFPAY ==
[2024-01-07 11:39] VITALS: BMI 27.8
--- NOTE | 2024-02-14 10:17 | DI.MG.S_ITS ---
BILATERAL DIGITAL DIAGNOSTIC MAMMOGRAM 3D/2D: 02/14/2024 CLINICAL: Short term follow up of the left breast, due for bilateral imaging. Comparison is made to exams dated: 01/05/2023 mammogram, 10/14/2021 mammogram, 10/05/2020 mammogram, 05/05/2022 mammogram, and 10/26/2021 mammogram - [facility]. Both breasts are heterogeneously dense, which may obscure small masses (category c / 51-75% glandular tissue). There also are stable benign grouped fine punctate round calcifications in the left breast at 1 o'clock posterior depth. Additionally, there are stable benign grouped fine punctate calcifications in the left breast at 12 o'clock posterior depth. There is a biopsy clip associated with the calcifications. No other significant masses, calcifications, or other findings are seen in either breast. IMPRESSION: INCOMPLETE: NEEDS ADDITIONAL IMAGING EVALUATION Left breast calcifications demonstrate long-term stability and are benign. A 1 year screening mammogram is recommended. Exam findings were conveyed to the patient. Based on the Tyrer Cuzick model (a risk assessment model) the patient's lifetime risk is 10.6% and her 10 year risk is 1.0%. According to the ACR, ACS, and NCCN guidelines, an annual breast MRI exam along with mammogram is recommended if the patient's lifetime risk is 20% or greater. This exam was interpreted at Station ID: [id number]. NOTE: For mammograms, a report in lay terms will be sent to the patient. Approximately 15% of breast malignancies will not be visualized mammographically. In the management of a palpable breast mass, a negative mammogram must not discourage biopsy of a clinically suspicious lesion. Electronically Signed By: Ruben Gray M.D. [facility]/:02/14/2024 10:53:15 letter sent: Normal Exam ACR BI-RADS Category 0: Incomplete [id number]
== END ==
PROVIDERS: Family Provider Nurse Practitioner; PCP Nurse Practitioner; Referring Provider Nurse Practitioner; Visit Provider Nurse Practitioner
DX: N63.20 Unspecified lump in the left breast, unspecified quadrant (principal); R92.1 Mammographic calcification found on diagnostic imaging of breast; R92.333 Mammographic heterogeneous density, bilateral breasts; Z97.8 Presence of other specified devices
CPT/HCPCS: 77066; G0279

== ENCOUNTER → 2024-02-21 08:54 | Outpatient (CLI) | payer OTHER, SELFPAY ==
[2024-01-07 11:39] VITALS: BMI 27.8
--- NOTE | 2024-02-21 08:56 | DI.CT.S_ITS ---
PROCEDURE: CT ABDOMEN PELVIS W CON INDICATIONS: rasheed-rectal pain and outpouching TECHNIQUE: After the administration of intravenous contrast, axial sections acquired from the lung bases to the pubic symphysis. Coronal and sagittal reformats were performed. For radiation dose reduction, the following was used: automated exposure control, adjustment of mA and/or kV according to patient size. COMPARISON: None. FINDINGS: Image quality: Diagnostic. Lower Chest: No significant findings. ABDOMEN: Liver: No solid mass. Gallbladder: No radiopaque gallstones or wall thickening. Biliary ducts: No biliary dilation. Pancreas: No ductal dilation. Spleen: Size is within normal limits. Adrenal Glands: No adrenal nodules. Kidneys and Ureters: No hydronephrosis. No solid mass. No complex renal cystic lesion which requires follow up. Stomach and Bowel: Circumferential thickening of the lower rectum (series 2, image 85) suggestive of proctitis. No definite perirectal abscess. Remainder of the small and large bowel appear normal in caliber without evidence of bowel obstruction. Peritoneum: No evidence of pneumoperitoneum. Small amount of free fluid within the pelvis. No definite evidence of abdominal or pelvic abscess. Ventral Wall: No significant ventral hernia. Abdominal Nodes: No retroperitoneal or mesenteric adenopathy by size criteria. Vessels: Aorta and inferior vena cava are normal in size. PELVIS: Pelvic Organs: Unremarkable. Uterus is surgically absent. Bladder: No bladder wall thickening, accounting for underdistention. Pelvic Nodes: No enlarged lymph nodes. Miscellaneous: No inguinal hernias are seen. Bones: No aggressive osseous abnormality. IMPRESSION: Circumferential thickening of the lower rectum suggestive of proctitis. No definite perirectal abscess. Dictated by: Michael Pena M.D. on 02/21/2024 at 16:51 Approved by: Michael Pena M.D. on 02/21/2024 at 17:00
== END ==
PROVIDERS: Family Provider Nurse Practitioner; PCP Nurse Practitioner; Referring Provider Obstetrics & Gynecology; Visit Provider Obstetrics & Gynecology
DX: K62.89 Other specified diseases of anus and rectum (principal); Z90.710 Acquired absence of both cervix and uterus
CPT/HCPCS: 74177; Q9967

== ENCOUNTER 2024-04-09 06:30 | Day surgery (SDC) | payer SELFPAY ==
[2024-01-07 11:39] VITALS: BMI 27.8
[2024-04-07 12:14] VITALS: BMI 28.3
--- NOTE | 2024-04-08 17:15 | PM.PREOP ---
Pre-operative Note Interval Note History & Physical reviewed/Exam performed by Physician: Yes Changes to H&P: No
[2024-04-09] VITALS (8 sets, daily range): BP systolic 93–122; BP diastolic 61–87; PULSE 68–92; RESP 12–16; TEMP 36.6–37.4; O2SAT 97–100; BMI 28.3
[2024-04-09] MEDS: LACTATED RINGERS 1,000 ML 42 ML IV (07:12)
--- NOTE | 2024-04-09 07:57 | SUR.OPER ---
Lithotomy on padded OR bed, head on pillow, arms secured on padded arm boards at <90 degrees abduction. Legs secured in padded yellow fins stirrups.
[2024-04-09] MEDS: BUPIVACAINE 0.25% (PF) VIAL 30 ML INJ (08:05)
--- NOTE | 2024-04-09 08:51 | PM.OP.1 ---
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 She has mild fecal incontinence at baseline. She is taken to the operating room for suspected perirectal fistula. 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 No purulent drainage from perianal ?lump Specimen(s): none sent Estimated Blood Loss (mL): 10 Procedure in detail: Patient was brought to the operating room placed supine. Bilateral lower extremity compression devices were applied. Anesthesia was induced and she was intubated with an LMA. She was then prepped and draped in sterile fashion. Time-out performed. External examination demonstrates a perianal fluctuance at the 4 o'clock position while in lithotomy. An internal examination of the rectum was made there is some slight inflammation in the posterior rectum no overt abscess. An incision and drainage was performed on the perianal fluctuance. Tissues inflamed but there is no purulent drainage. A lacrimal probe was placed in site of this cavity and was found to exit within the posterior rectum at approximately the level of the dentate line. A vessel loop was placed as a seton. I considered doing a superficial fistulotomy however with her slight incontinence at baseline felt that a more conservative approach would be warranted. Vessel loop was secured. Patient emerged from anesthesia was transferred to recovery in stable condition. Complications: none Post-operative Condition: stable Disposition: same day surgery
[2024-04-09] MEDS: CELECOXIB 200 MG CAPSULE PO (09:02)
== END 2024-04-09 09:30 | disposition home or self-care (01) ==
PROVIDERS: Family Provider Nurse Practitioner; PCP Family Medicine; Referring Provider Surgery; Visit Provider Surgery
PROC: (CPT 46020; principal; 2024-04-09 07:45)
DX: K60.4 Rectal fistula (principal)
CPT/HCPCS: 46020; 81025; 82962; J1100; J2250; J2405; J2704; J3010

== ENCOUNTER 2024-04-10 12:57 | Emergency (ER) | payer OTHER, SELFPAY ==
[2024-01-07 11:39] VITALS: BMI 27.8
[2024-04-10] VITALS (10 sets, daily range): BP systolic 103–138; BP diastolic 56–76; PULSE 69–98; RESP 14–23; TEMP 36.9; O2SAT 99–100; BMI 28.3
--- NOTE | 2024-04-10 13:19 | PC.NURSE ---
Trachea auscultation clear. No obvious hives or swelling noted. Lung sounds equal and clear anteriorly. Pt able to ambulate w/o issue. Pt reports feeling shakey from epinephrine Pt reports taking celebrex for the second time and stating yesterday she had an itchy throat but thought that was from intubation due to surgery. No acute distress noted at this time.
--- NOTE | 2024-04-10 14:35 | ED.ALLEREA ---
HPI - Allergic Reaction General Chief complaint: Allergic Reaction Stated complaint: Allergic reaction Time Seen by Provider: 04/10/24 13:31 Source: patient Mode of arrival: EMS History of Present Illness HPI narrative: 38-year-old woman with a perirectal fistula who underwent I and D procedure yesterday. Took 2 doses of Celebrex 1st time she is use that medication. [place] a bit of scratchy throat after the 2nd dose. With the 3rd dose this morning felt that her throat was closing in with increased difficulty breathing. She took 50 mg of oral Benadryl and went to the walk-in clinic where her reaction was getting worse. In the lobby she was given IM epinephrine and 911 was called. On arrival in the emergency department she is hemodynamically stable is maintaining her airway still feels a bit of scratchiness in the back of her throat. Noting some perirectal tenderness postoperatively but declining any medications that she continues to have difficulty with the pain medications. She is able to speak in full sentences Related Data Home Medications Medication Instructions Recorded Confirmed cyanocobalamin (vitamin B-12) 1,000 mcg PO DAILY 04/07/24 04/09/24 1,000 mcg tablet Previous Rx's Medication Instructions Recorded albuterol sulfate 90 mcg/actuation 2 puff inhalation BID PRN 08/31/22 aerosol inhaler Shortness Of Breath #8.5 grams epinephrine 0.3 mg/0.3 mL 0.3 mg (0.3 mL) IM ONCE #2 ea 07/16/23 injection, auto-injector ondansetron 4 mg disintegrating 4 mg PO Q6H PRN nausea and 08/16/23 tablet vomiting #30 tabs acetaminophen 325 mg capsule 650 mg (2 x 325 mg) PO QID PRN 04/09/24 (Tylenol) pain #60 caps celecoxib 200 mg capsule (Celebrex) 200 mg PO BID #20 caps 04/09/24 methylprednisolone 4 mg tablets in See Rx Instructions PO .COMPLEX 04/10/24 a dose pack (Medrol (Ozzy)) #21 ea Allergies Allergy/AdvReac Type Severity Reaction Status Date / Time bee venom protein (honey bee) Allergy Severe Had Verified 04/10/24 13:04 unusual reaction but not anaphylaxis Sulfa (Sulfonamide Allergy Severe Hives Verified 04/10/24 13:04 Antibiotics) cat dander Allergy Mild Verified 04/10/24 13:04 gluten Allergy Mild Verified 04/10/24 13:04 mold Allergy Mild Verified 04/10/24 13:04 latex Allergy Verified 04/10/24 13:04 celecoxib [From Celebrex] AdvReac Intermediate Difficulty Verified 04/10/24 13:04 Breathing methylphenidate AdvReac Intermediate Dysuria Verified 04/10/24 13:04 Patient History Medical History B12 deficiency ADD (attention deficit disorder) History of endometriosis Abnormal mammogram of left breast TMJ (dislocation of temporomandibular joint) Intractable migraine History of bulimia History of anorexia nervosa Body dysmorphic disorder Family history of endometriosis in first degree relative Migraine headache with aura Chronic pain Palpitations Dizziness Erythematous papules of skin Breast pain, left Lymphadenopathy, axillary 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 neuropathy Vision disorder Plantar warts Acne Allergies Bulimia Anxiety Anorexia nervosa Migraines Chicken pox Anemia Irregular menstrual cycle Heavy menstrual period Rectal prolapse Irritable bowel syndrome Gluten enteropathy Asthma with allergic rhinitis Surgical History History of gynecologic surgery (01/07/24) History of hysterectomy (04/15/21) Anesthesia History of myringotomy (~1994) [place] teeth removed (~2010) S/P T&A (status post tonsillectomy and adenoidectomy) (~1990) History of elbow surgery (~2016) Family History Grandfather Cancer Grandmother Pneumonia Social History marital status: number of children: 2 household members: spouse and children lives independently: Yes occupational status: unemployed Smoking Status: Former smoker alcohol intake: never substance use type: marijuana Smoking Status: Former smoker alcohol intake frequency: holidays/special occasions only Substance Use Type: marijuana Exam Initial Vital Signs Initial Vital Signs: Vital Signs Temperature 98.4 F 04/10/24 13:00 Pulse Rate 98 H 04/10/24 13:00 Respiratory Rate 20 04/10/24 13:00 Blood Pressure 138/76 04/10/24 13:00 Pulse Oximetry 99 04/10/24 13:00 Oxygen Delivery Method Room Air 04/10/24 13:00 General: Healthy appearing, in no acute distress. Able to give a complete and coherent history. Well-nourished well-developed HEENT: Moist mucous membranes, normal sclera with reactive pupils, posterior pharynx and tongue are not swollen or erythematous Neck: No cervical adenopathy Respiratory: Lungs are clear to auscultation, no wheezing no rales no rhonchi. Full and symmetrical air movement Cardiac: Regular rate and rhythm no murmurs no bruits Abdomen: Soft, nontender, good bowel tones, no flank pain Skin: Warm and dry, no rashes, no erythema Neurologic: Grossly neurologically intact with no obvious asymmetries or abnormalities Extremities: No trauma, well perfused Psych: Cooperative, appropriate insight and affect Course Orders Ordered: Discontinued Medications Famotidine (Famotidine 20 Mg/2 Ml Vial) 20 mg IV NOW ONE Stop: 04/10/24 14:39 Last Admin: 04/10/24 14:49 Dose: 20 mg Documented By: MIKE Methylprednisolone (Methylprednisolone 125 Mg/2 Ml Vial) 125 mg IV NOW ONE Stop: 04/10/24 14:38 Last Admin: 04/10/24 14:50 Dose: 125 mg Documented By: MIKE Vital Signs Vital signs: Vital Signs - 8 hr 04/10/24 13:00 04/10/24 13:07 04/10/24 13:07 Temperature 98.4 F Pulse Rate 98 H 98 H Respiratory Rate 20 16 Blood Pressure 138/76 138/76 Pulse Oximetry 99 100 Oxygen Delivery Method Room Air 04/10/24 13:30 04/10/24 13:30 04/10/24 14:00 Temperature Pulse Rate 87 80 Respiratory Rate 21 17 Blood Pressure 103/59 L Pulse Oximetry 100 100 Oxygen Delivery Method 04/10/24 14:00 04/10/24 14:30 04/10/24 14:30 Temperature Pulse Rate 74 Respiratory Rate 22 Blood Pressure 109/59 L 112/56 L Pulse Oximetry 100 Oxygen Delivery Method 04/10/24 15:00 04/10/24 15:00 04/10/24 15:30 Temperature Pulse Rate 75 72 Respiratory Rate 16 19 Blood Pressure 119/63 Pulse Oximetry 100 100 Oxygen Delivery Method 04/10/24 15:30 04/10/24 16:00 04/10/24 16:00 Temperature Pulse Rate 69 Respiratory Rate 16 Blood Pressure 108/63 113/66 Pulse Oximetry 100 Oxygen Delivery Method 04/10/24 16:30 04/10/24 16:30 04/10/24 17:00 Temperature Pulse Rate 70 Respiratory Rate 14 Blood Pressure 121/68 125/68 Pulse Oximetry 100 Oxygen Delivery Method 04/10/24 17:00 Temperature Pulse Rate 87 Respiratory Rate 23 Blood Pressure Pulse Oximetry 99 Oxygen Delivery Method MDM - Allergic Reaction MDM Narrative Medical decision making narrative: 38-year-old woman who had a perirectal I and D done yesterday. Was given Celebrex for pain control. By her 3rd dose this morning she was having significant throat tightening and increasing shortness of breath. She initially took 50 mg of oral Benadryl, presented to the urgent care clinic was given epi in the lobby and transported to the emergency department. On arrival in the emergency department she is feeling significantly better. Minimal itchiness in the back of her throat no visible abnormalities. No audible wheezing. She is given additional Solu-Medrol and IV Pepcid. She is observed in the emergency department for 4 hours with symptoms continuing to improve. At time of discharge she complains of some mild scratchiness in the back of her throat exam is remarkable for completely clear lung sounds no evidence of respiratory distress and no rashes. She states that she can use ibuprofen alone to help with the perianal pain from the surgical procedure yesterday. Regarding the anaphylactic reaction after her 4 hours of observation in the emergency department I suggested a Medrol Dosepak and Benadryl, she states it does not cause any fatigue for her, twice a day for the next week to prevent any recurrent symptoms. We also talked about the long half-life of Celebrex. At this time she is safe for discharge, there was no indication for hospitalization. Questions are answered Discharge Plan Departure Patient Disposition: Home Clinical Impression: Anaphylaxis Qualifiers: Encounter type: initial encounter Qualified Code(s): T78.2XXA - Anaphylactic shock, unspecified, initial encounter Instructions: DI for Anaphylaxis Activity Restrictions/Additional Instructions: Thank you for coming in today You need to consider yourself severely allergic to Celebrex You are given epinephrine, Solu-Medrol a steroid, you already took Benadryl you are given Pepcid. You were observed in the emergency department for 4 hours and continued to improve. I am going to suggest that you complete a Medrol Dosepak, a decreasing dose of steroid for the next 6 days. I would also recommend 25 mg of Benadryl in the morning and the evening as it does not make you sleepy to make sure that you are immune system stays calm. If you note that you are having increasing symptoms concerns wheezing tightness in the back of your throat or new symptoms you need to return to the emergency department. If it is rapidly progressing you need to call 911 Prescriptions: New methylprednisolone [Medrol (Ozzy)] 4 mg tablets,dose pack See Rx Instructions .ROUTE .COMPLEX Qty: 21 0RF Rx Instructions: for 6 days No Action epinephrine 0.3 mg/0.3 mL auto-injector 0.3 mg IM ONCE Qty: 2 1RF Rx Instructions: as a single dose albuterol sulfate 90 mcg/actuation HFA aerosol inhaler 2 puff INHALATION BID PRN (Reason: Shortness Of Breath) Qty: 8.5 2RF ondansetron 4 mg tablet,disintegrating 4 mg PO Q6H PRN (Reason: nausea and vomiting) Qty: 30 3RF cyanocobalamin (vitamin B-12) 1,000 mcg Tablet 1,000 mcg PO DAILY celecoxib [Celebrex] 200 mg capsule 200 mg PO BID Qty: 20 0RF acetaminophen [Tylenol] 325 mg capsule 650 mg PO QID PRN (Reason: pain) Qty: 60 0RF Referrals: Shelly Ruiz MD [Primary Care Provider] - Stand Alone Forms: Patient Portal/API
[2024-04-10] MEDS: FAMOTIDINE 20 MG/2 ML VIAL IV (14:49)
[2024-04-10] MEDS: methylPREDNISolone 125 MG/2 ML VIAL IV (14:50)
== END 2024-04-10 17:33 | disposition home or self-care (01) ==
PROVIDERS: Emergency Provider Emergency Medicine; Family Provider Nurse Practitioner; PCP Family Medicine
DX: R06.02 Shortness of breath (principal); T78.2XXA Anaphylactic shock, unspecified, initial encounter
CPT/HCPCS: 96374; 96375; 99283; 99284; J2919

== ENCOUNTER → 2024-04-22 08:18 | Outpatient (CLI) | payer OTHER, SELFPAY ==
[2024-01-07 11:39] VITALS: BMI 27.8
[2024-04-22 10:47] LABS: Vitamin B12 781 pg/mL (239-931)
== END ==
PROVIDERS: Family Provider Nurse Practitioner; PCP Family Medicine; Referring Provider Family Medicine; Visit Provider Family Medicine
DX: E53.8 Deficiency of other specified B group vitamins (principal); M25.50 Pain in unspecified joint
CPT/HCPCS: 36415; 82607

== ENCOUNTER → 2024-05-09 08:08 | Outpatient (CLI) | payer OTHER, SELFPAY ==
[2024-01-07 11:39] VITALS: BMI 27.8
--- NOTE | 2024-05-09 08:08 | DI.CT.S_ITS ---
PROCEDURE: CT ABDOMEN PELVIS W CON INDICATIONS: rectal lump returned after surgery TECHNIQUE: After the administration of intravenous contrast, axial sections acquired from the lung bases to the pubic symphysis. Coronal and sagittal reformats were performed. For radiation dose reduction, the following was used: automated exposure control, adjustment of mA and/or kV according to patient size. COMPARISON: [facility], CT, CT ABDOMEN PELVIS W CON, 02/21/2024, 10:03. FINDINGS: Image quality: Diagnostic Lower chest: Basal atelectasis. Normal heart size where visualized Liver: Unremarkable Gallbladder and biliary system: Unremarkable, nondilated Pancreas: No ductal dilation Spleen: Nonenlarged Adrenals: No discrete nodules Kidneys: No solid mass. No hydronephrosis. Vessels and lymph nodes: The main portal vein appears patent. No abdominal aortic aneurysm or pathologic lymph nodes by size criteria. Bowel and peritoneum: No small bowel obstruction. Wall thickening again seen in the lower rectum and rectal anal junction. A small amount inflammatory fat stranding is noted on the right in the perianal region. Small amount pelvic free fluid is present. Body wall: Unremarkable Pelvis: Bladder is unremarkable. Uterus is absent. Unremarkable limited CT assessment of the adnexal structures. Bones: No acute or suspicious osseous findings. IMPRESSION: Mild rectal wall thickening again seen. A small amount of edematous fat stranding is seen at the right perianal region at the anal verge, no definite drainable perianal abscess by CT. There is a small amount pelvic free fluid. Given reported history, consider pelvic MRI to further evaluate A BB marking the location of the palpable abnormality would be helpful. No acute abnormalities identified in the abdomen. Mild wall thickening of the rectum may represent postsurgical changes versus proctitis. Other findings above. Dictated by: Dallin Bennett M.D. on 05/09/2024 at 11:23 Approved by: Dallin Bennett M.D. on 05/09/2024 at 11:30
== END ==
PROVIDERS: Family Provider Nurse Practitioner; PCP Family Medicine; Referring Provider Surgery; Visit Provider Surgery
DX: K62.89 Other specified diseases of anus and rectum (principal); K61.0 Anal abscess
CPT/HCPCS: 74177; Q9967

== ENCOUNTER → 2024-06-08 14:01 | Outpatient (CLI) | payer OTHER, SELFPAY ==
[2024-01-07 11:39] VITALS: BMI 27.8
--- NOTE | 2024-06-08 14:02 | DI.MRI.S_ITS ---
PROCEDURE: MR PELIS WO/W CON INDICATIONS: persistent perirectal abscess/fistula TECHNIQUE: Coronal HASTE through the pelvis, oblique axial and coronal T1 and T2 fast spin echo through the anal canal. After the administration of contrast, oblique axial and coronal VIBE or T1 fast spin echo with fast saturation through the anal canal. COMPARISON: None. FINDINGS: Image quality: Excellent. Anorectal region: No perianal fistulas or abscesses identified. No inflammatory fat stranding. Other soft tissues: Bladder wall thickness is normal. No free pelvic fluid. Visualized bowel loops are normal in caliber. The uterus is surgically absent. Bones: Visualized bony structures demonstrate normal marrow signal. IMPRESSION: No visible perianal fistula or abscess in the indicated area. Dictated by: Mariann Tomlin M.D. on 06/09/2024 at 12:28 Approved by: Mariann Tomlin M.D. on 06/09/2024 at 12:37
--- NOTE | 2024-06-08 15:10 | DI.RAD.S_ITS ---
PROCEDURE: XR CHEST 2V INDICATIONS: SOB, atelectasis on CT TECHNIQUE: 2 views of the chest were acquired. COMPARISON: [facility], CT, CT ABDOMEN PELVIS W CON, 05/09/2024, 10:16. [facility], CR, XR CHEST 1V, 08/17/2020, 14:59. FINDINGS: Surgical changes and devices: None. Lungs and pleura: Lungs are clear. No pleural effusions or pneumothorax. Mediastinum: Mediastinal contours are normal. Heart size is normal. Bones and chest wall: No suspicious bony abnormalities. Soft tissues appear unremarkable. IMPRESSION: No acute cardiopulmonary abnormality is seen. Dictated by: Mandeep Thomson M.D. on 06/08/2024 at 19:31 Approved by: Mandeep Thomson M.D. on 06/08/2024 at 19:32
== END ==
PROVIDERS: Family Provider Nurse Practitioner; PCP Family Medicine; Referring Provider Surgery; Visit Provider Surgery
DX: K61.1 Rectal abscess (principal); R06.02 Shortness of breath
CPT/HCPCS: 71046; 72197; A9579

== ENCOUNTER → 2025-03-14 09:52 | Outpatient (CLI) | payer OTHER, SELFPAY ==
[2024-01-07 11:39] VITALS: BMI 27.8
--- NOTE | 2025-03-14 09:53 | DI.MG.S_ITS ---
MM screening mammo BI: 03/14/2025. BI-RADS: 0 CLINICAL: 39-year old female for bilateral screening mammogram. Tyrer-Cuzick lifetime risk of 8.6%. No personal or first-degree family history of breast cancer. The patient had prior bilateral breast biopsies. PRIOR EXAMS: 02/14/2024, 07/24/2023, 01/05/2023, 05/05/2022, 10/26/2021, 10/14/2021, 04/04/2021, 03/21/2021, 10/05/2020, 04/06/2020, 10/20/2019, 10/06/2019. MAMMOGRAPHY TECHNIQUE: 2D and 3D (tomosynthesis) digital mammographic views obtained, with additional images as needed for full coverage. Current study was also evaluated with a Computer Aided Detection (CAD) system. DENSITY C. The breasts are heterogeneously dense, which may obscure small masses. MAMMOGRAPHY FINDINGS Right: No suspicious mass, asymmetry, microcalcification, or other abnormality seen. Left: Upper Outer Quadrant, Middle depth: Calcifications needing additional imaging evaluation. IMPRESSION: Right * No evidence of malignancy. Left (Calcification): Upper Outer Quadrant, Middle depth * Incomplete - calcification needing additional imaging evaluation. RECOMMENDATIONS Left: Upper Outer Quadrant, Middle depth * Further evaluation with diagnostic mammography. OVERALL ASSESSMENT CATEGORY BI-RADS-0: Incomplete - Need Additional Imaging Evaluation. ELECTRONICALLY SIGNED: Filomena Ramirez M.D. on 03/16/2025 at 10:02:55 PM PT Interpreting Station ID: [id number]
== END ==
PROVIDERS: PCP Family Medicine; Referring Provider Family Medicine; Visit Provider Family Medicine
DX: Z12.31 Encounter for screening mammogram for malignant neoplasm of breast (principal); R92.333 Mammographic heterogeneous density, bilateral breasts
CPT/HCPCS: 77063; 77067

== ENCOUNTER → 2025-05-29 08:57 | Outpatient (CLI) | payer OTHER, SELFPAY ==
[2024-01-07 11:39] VITALS: BMI 27.8
--- NOTE | 2025-05-29 08:58 | DI.MG.S_ITS ---
MM diagnostic mammo unilat LT: 05/29/2025. BI-RADS: 4 CLINICAL: 40-year old female for left diagnostic mammogram that is a recall from screening on 03/14/2025. Tyrer-Cuzick lifetime risk of 8.5%. No personal or first-degree family history of breast cancer. The patient had prior bilateral breast biopsies. PRIOR EXAMS 03/14/2025, 02/14/2024, 07/24/2023, 01/05/2023, 05/05/2022, 10/26/2021, 10/14/2021, 04/04/2021, 03/21/2021, 10/05/2020, 04/06/2020, 10/20/2019, 10/06/2019. MAMMOGRAPHY TECHNIQUE: 2D and 3D (tomosynthesis) digital mammographic views obtained, with additional images as needed for full coverage. Current study was also evaluated with a Computer Aided Detection (CAD) system. DENSITY Left: C. The breast is heterogeneously dense, which may obscure small masses. MAMMOGRAPHY FINDINGS Left: Upper Outer at 2:00, Middle depth, 6.6 x 3.4 x 3.3cm: Correlating with findings on screening mammogram there are amorphous calcifications in segmental distribution. A portion of these calcifications was previously biopsied on 04/04/2021 with pathology demonstrating flat epithelial atypia among other benign findings. These calcifications appear to be increasing over time. IMPRESSION: Left (Calcification): Upper Outer at 2:00, Middle depth, 6.6 x 3.4 x 3.3cm * Suspicious findings with likelihood of malignancy. RECOMMENDATIONS Left: Upper Outer at 2:00, Middle depth * Stereotactic-guided biopsy for further evaluation. COMMENTS: Findings and recommendations were conveyed to the patient during today's evaluation by Dr. Ramirez. OVERALL ASSESSMENT CATEGORY BI-RADS-4: Suspicious. ELECTRONICALLY SIGNED: Filomena Ramirez M.D. on 05/29/2025 at 11:04:27 AM PT Interpreting Station ID: [id number]
== END ==
LOC: MAMMO 08:58
PROVIDERS: PCP Family Medicine; Referring Provider Family Medicine; Visit Provider Family Medicine
DX: R92.8 Other abnormal and inconclusive findings on diagnostic imaging of breast (principal); R92.1 Mammographic calcification found on diagnostic imaging of breast; R92.332 Mammographic heterogeneous density, left breast
CPT/HCPCS: 77065; G0279